=== PATIENT | male | born 1975 | race African-American/Black ===

== ENCOUNTER 2017-12-26 11:04 | Observation (INO) ==
[2017-12-26 12:13] LABS: Basophils % 0.8 % (0.0-0.8); Eosinophils # 0.1 10*3/uL (0.0-0.87); Eosinophils % 1.7 % (0.00-10.9); Hematocrit 36.3 VOL% (42.0-52.0); Hemoglobin 12.3 GM/DL (14.0-18.0); Immature Granulocytes % 0.2 %; Immature Granulocytes Absolute 0.01 #; Lymphocytes # 1.5 10*3/uL (1.4-4.0); Mean Corpuscular HGB Conc 33.9 GM/DL (32-36); Mean Corpuscular Hemoglobin 33 PG (27-34); Mean Corpuscular Volume 96.8 FL (87-102); Mean Platelet Volume 10.6 FL (9.6-12.0); Monocytes # 0.7 10*3/uL (0.11-0.8); Monocytes % 12.8 % (1.7-12.7); Neutrophils # 2.9 10*3/uL (1.4-7.4); Neutrophils % 56.5 % (38.7-73.9); Platelet Count 220 T/CUMM (130-400); Red Blood Count 3.75 MC/CUMM (3.8-5.5); Red Cell Distribution Width 17.3 % (9.3-17.3); White Blood Count 5.2 T/CUMM (4-12)
[2017-12-26 12:26] LABS: PT Patient Result 10.7 SECS
[2017-12-26 12:47] LABS: Alanine Aminotransferase 33 U/L (16-61); Albumin 4.1 G/DL (3.4-5.0); Alkaline Phosphatase 85 U/L (45-117); Aspartate Amino Transferase 38 U/L (0-37); Blood Urea Nitrogen 26 MG/DL (7-18); Calcium 9.3 MG/DL (8.5-10.1); Glucose 78 MG/DL (74-106); Osmolality,Calculated 269.4 MOS/KG (273-304); Potassium 3.7 MMOL/L (3.5-5.1); Sodium 133 MMOL/L (136-145); Total Protein 9.5 G/DL (6.4-8.3)
[2017-12-26] MEDS ORDERED: LABETALOL 20 MG/4 ML SYRINGE IV PRN (13:35)
[2017-12-26] MEDS ORDERED: ACETAMINOPHEN 325 MG TABLET PO PRN (13:35)
[2017-12-26] MEDS ORDERED: GLUCAGON 1 MG VIAL IM PRN (13:35)
[2017-12-26] MEDS ORDERED: ONDANSETRON 4 MG/2 ML VIAL IV PRN (13:35)
[2017-12-26] MEDS ORDERED: DEXTROSE 50% 25 GM/50 ML VIAL IV PRN (13:35)
[2017-12-26] MEDS: ASPIRIN EC 81 MG TABLET PO SCH (16:56)
[2017-12-26] MEDS ORDERED: ENOXAPARIN 30 MG/0.3 ML SYRINGE SUBCUT SCH (21:00)
[2017-12-26] MEDS ORDERED: ATORVASTATIN 40 MG TABLET PO SCH (21:00)
[2017-12-27 06:17] LABS: Basophils % 0.4 % (0.0-0.8); Eosinophils # 0.1 10*3/uL (0.0-0.87); Eosinophils % 1.5 % (0.00-10.9); Hematocrit 31.6 VOL% (42.0-52.0); Hemoglobin 10.6 GM/DL (14.0-18.0); Immature Granulocytes % 0.4 %; Immature Granulocytes Absolute 0.02 #; Lymphocytes # 1.5 10*3/uL (1.4-4.0); Lymphocytes % 28.4 % (21.2-54.2); Mean Corpuscular HGB Conc 33.5 GM/DL (32-36); Mean Corpuscular Hemoglobin 32 PG (27-34); Mean Corpuscular Volume 95.5 FL (87-102); Mean Platelet Volume 11.2 FL (9.6-12.0); Monocytes # 0.7 10*3/uL (0.11-0.8); Monocytes % 13.3 % (1.7-12.7); Platelet Count 194 T/CUMM (130-400); Red Blood Count 3.31 MC/CUMM (3.8-5.5); Red Cell Distribution Width 17.3 % (9.3-17.3); White Blood Count 5.3 T/CUMM (4-12)
[2017-12-27 06:52] LABS: Calcium 8.5 MG/DL (8.5-10.1); Osmolality,Calculated 278.1 MOS/KG (273-304); Potassium 3.9 MMOL/L (3.5-5.1); Risk Ratio 5.08; VLDL CHOLESTEROL 38.8 MG/DL
[2017-12-27] MEDS: ASPIRIN EC 81 MG TABLET PO SCH (08:29)
[2017-12-27] MEDS ORDERED: PANTOPRAZOLE 40 MG TABLET PO SCH ×2 (09:00→21:00)
[2017-12-27] MEDS ORDERED: NITROGLYCERIN SL 0.4 MG TABLET SL PRN (11:15)
[2017-12-27] MEDS ORDERED: CINACALCET 30 MG TABLET PO SCH (12:30)
[2017-12-27 16:10] VITALS: BP 132/72
[2017-12-27] MEDS ORDERED: ASPIRIN EC 81 MG TABLET PO SCH (19:00)
[2017-12-27] MEDS ORDERED: RANOLAZINE 500 MG TABLET PO SCH (21:00)
[2017-12-27] MEDS ORDERED: METOPROLOL SUCCINATE XL 25 MG TABLET PO SCH (21:00)
[2017-12-27] MEDS ORDERED: ATORVASTATIN 40 MG TABLET PO SCH (21:00)
[2017-12-28] MEDS ORDERED: ISOSORBIDE MONONITRATE 30 MG TABLET PO SCH (09:00)
[2017-12-28] MEDS ORDERED: CLOPIDOGREL 75 MG TABLET PO SCH (09:00)
== END 2017-12-27 16:21 | disposition home or self-care (01) ==
LOC: EDBD → EDUNIT# → N.ED 11:04 → N.EDINP 11:04 → SUATTDRO 13:15 → N.2E 15:05
PROVIDERS: ADMIT Hospitalist

== ENCOUNTER 2019-01-01 21:48 | Observation (INO) ==
[2019-01-01] MEDS ORDERED: ONDANSETRON 4 MG/2 ML VIAL IV STA (22:20)
[2019-01-01] MEDS ORDERED: ASPIRIN 325 MG TABLET PO STA (22:20)
[2019-01-01 22:33] LABS: Basophils % 0.5 % (0.0-0.8); Eosinophils # 0.1 10*3/uL (0.0-0.87); Eosinophils % 1.9 % (0.00-10.9); Hematocrit 33.6 VOL% (42.0-52.0); Hemoglobin 10.5 GM/DL (14.0-18.0); Immature Granulocytes % 0.3 %; Immature Granulocytes Absolute 0.02 #; Mean Corpuscular HGB Conc 31.3 GM/DL (32-36); Mean Corpuscular Hemoglobin 31 PG (27-34); Mean Corpuscular Volume 99.1 FL (87-102); Mean Platelet Volume 11.1 FL (9.6-12.0); Monocytes # 0.6 10*3/uL (0.11-0.8); Monocytes % 10.7 % (1.7-12.7); Neutrophils % 68.6 % (38.7-73.9); Platelet Count 153 T/CUMM (130-400); Red Blood Count 3.39 MC/CUMM (3.8-5.5); Red Cell Distribution Width 15.9 % (9.3-17.3); White Blood Count 5.8 T/CUMM (4-12)
[2019-01-01 22:46] LABS: Alanine Aminotransferase 20 U/L (16-61); Albumin 3.6 G/DL (3.4-5.0); Alkaline Phosphatase 115 U/L (45-117); Aspartate Amino Transferase 22 U/L (0-37); Blood Urea Nitrogen 23 MG/DL (7-18); Calcium 8.5 MG/DL (8.5-10.1); Glucose 89 MG/DL (74-106); INR 1.1; PT Patient Result 11.9 SECS; Partial Thromboplastin Time 32.6 SECS (0-40); Potassium 3.5 MMOL/L (3.5-5.1); Sodium 136 MMOL/L (136-145); Total Protein 8.3 G/DL (6.4-8.3)
[2019-01-01] MEDS ORDERED: hydrALAZINE 20 MG/1 ML VIAL IV STA (23:18)
[2019-01-01] MEDS ORDERED: ACETAMINOPHEN 325 MG TABLET PO PRN (23:28)
[2019-01-01] MEDS ORDERED: MORPHINE 4 MG/1 ML VIAL IV PRN (23:28)
[2019-01-01] MEDS ORDERED: ONDANSETRON 4 MG/2 ML VIAL IV PRN (23:28)
[2019-01-01] MEDS ORDERED: NICOTINE 21 MG/24 HR PATCH TRANSDERM PRN (23:28)
[2019-01-01] MEDS ORDERED: diphenhydrAMINE CAP 25 MG CAPSULE PO PRN (23:28)
[2019-01-01] MEDS ORDERED: BISACODYL 5 MG TABLET PO PRN (23:28)
[2019-01-01] MEDS ORDERED: guaiFENesin/DM ER 600-30 MG TABLET PO PRN (23:28)
[2019-01-01] MEDS ORDERED: SODIUM CHLORIDE 0.9% 1,000 ML IV SCH (23:30)
[2019-01-02 00:41] LABS: Risk Ratio 2.48; Thyroid Stimulating Hormone 1.91 uIU/ml (0.358-3.74); VLDL CHOLESTEROL 13.2 MG/DL
[2019-01-02] MEDS ORDERED: NITROGLYCERIN SL 0.4 MG TABLET SL PRN (00:45)
[2019-01-02] MEDS: CARVEDILOL 3.125 MG TABLET PO SCH ×3 (01:04→21:23)
[2019-01-02] MEDS: hydrALAZINE 25 MG TABLET PO SCH ×3 (01:12→21:22)
[2019-01-02 05:53] LABS: Basophils % 0.6 % (0.0-0.8); Eosinophils # 0.1 10*3/uL (0.0-0.87); Hematocrit 30.8 VOL% (42.0-52.0); Hemoglobin 9.5 GM/DL (14.0-18.0); Immature Granulocytes % 0.2 %; Immature Granulocytes Absolute 0.01 #; Lymphocytes % 19.7 % (21.2-54.2); Mean Corpuscular HGB Conc 30.8 GM/DL (32-36); Mean Corpuscular Hemoglobin 31 PG (27-34); Mean Platelet Volume 11.4 FL (9.6-12.0); Monocytes # 0.7 10*3/uL (0.11-0.8); Monocytes % 13.5 % (1.7-12.7); Neutrophils # 3.2 10*3/uL (1.4-7.4); Platelet Count 138 T/CUMM (130-400); Red Blood Count 3.11 MC/CUMM (3.8-5.5); Red Cell Distribution Width 15.8 % (9.3-17.3)
[2019-01-02 06:09] LABS: Albumin 3.5 G/DL (3.4-5.0); Bilirubin,Total 1.3 MG/DL (0.2-1.0); Calcium 7.6 MG/DL (8.5-10.1); Osmolality,Calculated 277.7 MOS/KG (273-304); Potassium 3.4 MMOL/L (3.5-5.1); Total Protein 7.6 G/DL (6.4-8.3)
[2019-01-02] MEDS: PANTOPRAZOLE 40 MG TABLET PO SCH (08:26)
[2019-01-02] MEDS: CALCIUM ACETATE 667 MG CAPSULE PO SCH ×3 (08:26→16:27)
[2019-01-02] MEDS: CLOPIDOGREL 75 MG TABLET PO SCH (08:26)
[2019-01-02] MEDS: ISOSORBIDE MONONITRATE 30 MG TABLET PO SCH (08:26)
[2019-01-02] MEDS: predniSONE 10 MG TABLET PO SCH (08:26)
[2019-01-02] MEDS: ASPIRIN 325 MG TABLET PO SCH (08:26)
[2019-01-02] MEDS: amLODIPine 5 MG TABLET PO SCH (08:26)
[2019-01-02] MEDS ORDERED: CALCIUM ACETATE 667 MG CAPSULE PO SCH ×2 (09:00→15:00)
[2019-01-02] MEDS ORDERED: ATORVASTATIN 40 MG TABLET PO SCH (21:00)
[2019-01-02] MEDS ORDERED: CINACALCET 30 MG TABLET PO SCH (21:00)
[2019-01-03] MEDS: CALCIUM ACETATE 667 MG CAPSULE PO SCH ×2 (09:28→13:00)
[2019-01-03] MEDS: hydrALAZINE 25 MG TABLET PO SCH (09:29)
[2019-01-03] MEDS: CARVEDILOL 3.125 MG TABLET PO SCH (09:29)
[2019-01-03] MEDS: PANTOPRAZOLE 40 MG TABLET PO SCH (13:01)
[2019-01-03] MEDS: ISOSORBIDE MONONITRATE 30 MG TABLET PO SCH (13:01)
[2019-01-03] MEDS: amLODIPine 5 MG TABLET PO SCH (13:01)
[2019-01-03] MEDS: CLOPIDOGREL 75 MG TABLET PO SCH (13:01)
[2019-01-03] MEDS: ASPIRIN 325 MG TABLET PO SCH (13:01)
[2019-01-03] MEDS: predniSONE 10 MG TABLET PO SCH (13:01)
[2019-01-03 13:05] VITALS: BP 175/90
== END 2019-01-03 14:50 | disposition home or self-care (01) ==
LOC: EDUNIT# → EDBD → N.ED 21:48 → N.EDINP 21:48 → SUATTDRO 23:28 → N.5E 01-02 00:01
PROVIDERS: ADMIT Internal Medicine; ATTEND Hospitalist

== ENCOUNTER 2019-01-10 07:06 | Inpatient (IN) ==
[2019-01-10] MEDS ORDERED: NITROGLYCERIN SL 0.4 MG TABLET SL PRN (07:25)
[2019-01-10] MEDS ORDERED: NITROGLYCERIN 2% OINT 1 INCH/GM PACK TOP STA (07:25)
[2019-01-10] MEDS ORDERED: ASPIRIN 325 MG TABLET PO STA (07:25)
[2019-01-10 08:08] LABS: Basophils % 0.3 % (0.0-0.8); Eosinophils # 0.1 10*3/uL (0.0-0.87); Hematocrit 31.3 VOL% (42.0-52.0); Hemoglobin 9.7 GM/DL (14.0-18.0); Immature Granulocytes % 0.7 %; Immature Granulocytes Absolute 0.04 #; Lymphocytes # 1.7 10*3/uL (1.4-4.0); Lymphocytes % 29.5 % (21.2-54.2); Mean Corpuscular Hemoglobin 30 PG (27-34); Mean Corpuscular Volume 97.5 FL (87-102); Mean Platelet Volume 11.6 FL (9.6-12.0); Monocytes # 0.6 10*3/uL (0.11-0.8); Monocytes % 10.1 % (1.7-12.7); Neutrophils # 3.4 10*3/uL (1.4-7.4); Neutrophils % 58.4 % (38.7-73.9); Platelet Count 132 T/CUMM (130-400); Red Blood Count 3.21 MC/CUMM (3.8-5.5); Red Cell Distribution Width 15.7 % (9.3-17.3); White Blood Count 5.8 T/CUMM (4-12)
[2019-01-10 08:37] LABS: Calcium 7.2 MG/DL (8.5-10.1); Potassium 3.5 MMOL/L (3.5-5.1)
[2019-01-10] MEDS ORDERED: ONDANSETRON 4 MG/2 ML VIAL IV PRN (11:21)
[2019-01-10] MEDS ORDERED: ACETAMINOPHEN 325 MG TABLET PO PRN (11:21)
[2019-01-10 12:27] LABS: Risk Ratio 2.91; VLDL CHOLESTEROL 23.6 MG/DL
[2019-01-10] MEDS: CALCIUM ACETATE 667 MG CAPSULE PO SCH ×2 (18:11→18:35)
[2019-01-10] MEDS: CARVEDILOL 25 MG TABLET PO SCH (20:58)
[2019-01-10] MEDS: CINACALCET 30 MG TABLET PO SCH (20:58)
[2019-01-10] MEDS: ATORVASTATIN 40 MG TABLET PO SCH (20:58)
[2019-01-10] MEDS ORDERED: hydrALAZINE 25 MG TABLET PO SCH (21:00)
[2019-01-11 04:53] LABS: Basophils % 0.4 % (0.0-0.8); Eosinophils # 0.1 10*3/uL (0.0-0.87); Eosinophils % 2.3 % (0.00-10.9); Hemoglobin 10.1 GM/DL (14.0-18.0); Immature Granulocytes % 0.9 %; Immature Granulocytes Absolute 0.05 #; Lymphocytes # 1.8 10*3/uL (1.4-4.0); Lymphocytes % 31.8 % (21.2-54.2); Mean Corpuscular HGB Conc 31.6 GM/DL (32-36); Mean Corpuscular Hemoglobin 31 PG (27-34); Mean Corpuscular Volume 97.3 FL (87-102); Mean Platelet Volume 11.9 FL (9.6-12.0); Monocytes # 0.7 10*3/uL (0.11-0.8); Monocytes % 13.1 % (1.7-12.7); Neutrophils # 2.9 10*3/uL (1.4-7.4); Neutrophils % 51.5 % (38.7-73.9); Platelet Count 142 T/CUMM (130-400); Red Blood Count 3.29 MC/CUMM (3.8-5.5); Red Cell Distribution Width 15.5 % (9.3-17.3); White Blood Count 5.6 T/CUMM (4-12)
[2019-01-11 05:34] LABS: Calcium 7.5 MG/DL (8.5-10.1); Osmolality,Calculated 281.7 MOS/KG (273-304); Potassium 3.8 MMOL/L (3.5-5.1); Thyroid Stimulating Hormone 1.44 uIU/ml (0.358-3.74)
[2019-01-11] MEDS: CALCIUM ACETATE 667 MG CAPSULE PO SCH ×3 (08:09→16:05)
[2019-01-11] MEDS: PANTOPRAZOLE 40 MG TABLET PO SCH (08:10)
[2019-01-11] MEDS: CLOPIDOGREL 75 MG TABLET PO SCH (08:10)
[2019-01-11] MEDS: ASPIRIN 325 MG TABLET PO SCH (08:10)
[2019-01-11] MEDS: amLODIPine 5 MG TABLET PO SCH (08:11)
[2019-01-11] MEDS: ISOSORBIDE MONONITRATE 30 MG TABLET PO SCH (08:11)
[2019-01-11] MEDS: CARVEDILOL 25 MG TABLET PO SCH ×2 (08:11→21:11)
[2019-01-11] MEDS: CINACALCET 30 MG TABLET PO SCH (18:00)
[2019-01-11] MEDS: ATORVASTATIN 40 MG TABLET PO SCH (21:11)
[2019-01-12 05:53] LABS: Basophils % 0.4 % (0.0-0.8); Eosinophils # 0.1 10*3/uL (0.0-0.87); Eosinophils % 2.2 % (0.00-10.9); Hematocrit 30.3 VOL% (42.0-52.0); Hemoglobin 9.6 GM/DL (14.0-18.0); Immature Granulocytes % 0.7 %; Immature Granulocytes Absolute 0.04 #; Lymphocytes # 1.9 10*3/uL (1.4-4.0); Mean Corpuscular HGB Conc 31.7 GM/DL (32-36); Mean Corpuscular Hemoglobin 31 PG (27-34); Mean Corpuscular Volume 96.8 FL (87-102); Mean Platelet Volume 11.3 FL (9.6-12.0); Monocytes # 0.7 10*3/uL (0.11-0.8); Monocytes % 12.3 % (1.7-12.7); Neutrophils # 2.6 10*3/uL (1.4-7.4); Neutrophils % 49.4 % (38.7-73.9); Platelet Count 146 T/CUMM (130-400); Red Blood Count 3.13 MC/CUMM (3.8-5.5); Red Cell Distribution Width 15.3 % (9.3-17.3); White Blood Count 5.4 T/CUMM (4-12)
[2019-01-12 06:24] LABS: Osmolality,Calculated 283.1 MOS/KG (273-304); Potassium 3.7 MMOL/L (3.5-5.1)
[2019-01-12] MEDS: CALCIUM ACETATE 667 MG CAPSULE PO SCH ×3 (08:28→16:33)
[2019-01-12] MEDS: CARVEDILOL 25 MG TABLET PO SCH ×2 (08:29→20:21)
[2019-01-12] MEDS: ISOSORBIDE MONONITRATE 30 MG TABLET PO SCH (08:29)
[2019-01-12] MEDS: PANTOPRAZOLE 40 MG TABLET PO SCH (08:29)
[2019-01-12] MEDS: amLODIPine 5 MG TABLET PO SCH (08:29)
[2019-01-12] MEDS: CLOPIDOGREL 75 MG TABLET PO SCH (08:30)
[2019-01-12] MEDS: ASPIRIN 325 MG TABLET PO SCH (08:30)
[2019-01-12] MEDS: CINACALCET 30 MG TABLET PO SCH (18:02)
[2019-01-12] MEDS: ATORVASTATIN 40 MG TABLET PO SCH (20:21)
[2019-01-13 04:53] LABS: Basophils % 0.2 % (0.0-0.8); Eosinophils # 0.2 10*3/uL (0.0-0.87); Eosinophils % 2.8 % (0.00-10.9); Hematocrit 29.1 VOL% (42.0-52.0); Hemoglobin 9.1 GM/DL (14.0-18.0); Immature Granulocytes % 0.9 %; Immature Granulocytes Absolute 0.05 #; Lymphocytes # 1.8 10*3/uL (1.4-4.0); Lymphocytes % 32.1 % (21.2-54.2); Mean Corpuscular HGB Conc 31.3 GM/DL (32-36); Mean Corpuscular Hemoglobin 30 PG (27-34); Mean Corpuscular Volume 97.3 FL (87-102); Mean Platelet Volume 11.6 FL (9.6-12.0); Monocytes # 0.6 10*3/uL (0.11-0.8); Monocytes % 11.1 % (1.7-12.7); Neutrophils % 52.9 % (38.7-73.9); Platelet Count 145 T/CUMM (130-400); Red Blood Count 2.99 MC/CUMM (3.8-5.5); Red Cell Distribution Width 15.5 % (9.3-17.3); White Blood Count 5.7 T/CUMM (4-12)
[2019-01-13 05:22] LABS: Calcium 7.1 MG/DL (8.5-10.1); Osmolality,Calculated 286.2 MOS/KG (273-304); Potassium 3.9 MMOL/L (3.5-5.1)
[2019-01-13] MEDS: CALCIUM ACETATE 667 MG CAPSULE PO SCH ×2 (07:58→12:58)
[2019-01-13] MEDS: amLODIPine 5 MG TABLET PO SCH (12:58)
[2019-01-13] MEDS: CARVEDILOL 25 MG TABLET PO SCH (12:58)
[2019-01-13] MEDS: CLOPIDOGREL 75 MG TABLET PO SCH (12:59)
[2019-01-13] MEDS: ISOSORBIDE MONONITRATE 30 MG TABLET PO SCH (12:59)
[2019-01-13] MEDS: PANTOPRAZOLE 40 MG TABLET PO SCH (12:59)
[2019-01-13] MEDS: ASPIRIN 325 MG TABLET PO SCH (13:03)
[2019-01-13 13:39] VITALS: BP 186/70
== END 2019-01-13 13:50 | disposition home or self-care (01) | DRG 391 ==
LOC: EDUNIT# → N.ED 07:06 → N.EDINP 11:16 → N.2E 12:34
PROVIDERS: ADMIT Hospitalist; ATTEND Hospitalist

== ENCOUNTER 2019-01-18 12:29 | Observation (INO) ==
[2019-01-18 13:32] LABS: Basophils % 0.4 % (0.0-0.8); Eosinophils # 0.1 10*3/uL (0.0-0.87); Eosinophils % 2.5 % (0.00-10.9); Hematocrit 29.2 VOL% (42.0-52.0); Hemoglobin 9.2 GM/DL (14.0-18.0); Immature Granulocytes % 0.6 %; Immature Granulocytes Absolute 0.03 #; Lymphocytes # 1.1 10*3/uL (1.4-4.0); Lymphocytes % 22.3 % (21.2-54.2); Mean Corpuscular HGB Conc 31.5 GM/DL (32-36); Mean Corpuscular Hemoglobin 31 PG (27-34); Mean Corpuscular Volume 99.3 FL (87-102); Mean Platelet Volume 10.9 FL (9.6-12.0); Monocytes # 0.6 10*3/uL (0.11-0.8); Monocytes % 12.9 % (1.7-12.7); Neutrophils % 61.3 % (38.7-73.9); Platelet Count 148 T/CUMM (130-400); Red Blood Count 2.94 MC/CUMM (3.8-5.5); Red Cell Distribution Width 15.2 % (9.3-17.3); White Blood Count 4.9 T/CUMM (4-12)
[2019-01-18 13:41] LABS: INR 1.1; PT Patient Result 11.5 SECS; Partial Thromboplastin Time 32.1 SECS (0-40)
[2019-01-18 13:57] LABS: Albumin 3.4 G/DL (3.4-5.0); Bilirubin,Total 0.9 MG/DL (0.2-1.0); Calcium 7.6 MG/DL (8.5-10.1); Osmolality,Calculated 277.7 MOS/KG (273-304); Potassium 3.9 MMOL/L (3.5-5.1); Total Protein 7.7 G/DL (6.4-8.3)
[2019-01-18] MEDS ORDERED: ACETAMINOPHEN 325 MG TABLET PO PRN (15:03)
[2019-01-18] MEDS ORDERED: ONDANSETRON 4 MG/2 ML VIAL IV PRN (15:03)
[2019-01-18] MEDS: CALCIUM ACETATE 667 MG CAPSULE PO SCH (17:07)
[2019-01-18] MEDS: NITROGLYCERIN 2% OINT 1 INCH/GM PACK TOP SCH (17:07)
[2019-01-18] MEDS: ENOXAPARIN 120 MG/0.8 ML SYRINGE SUBCUT SCH (17:07)
[2019-01-18] MEDS ORDERED: CINACALCET 30 MG TABLET PO SCH (19:00)
[2019-01-18] MEDS: PANTOPRAZOLE 40 MG TABLET PO SCH (22:00)
[2019-01-18] MEDS: ATORVASTATIN 40 MG TABLET PO SCH (22:00)
[2019-01-18] MEDS: CINACALCET 30 MG TABLET PO SCH (22:00)
[2019-01-18] MEDS: CARVEDILOL 25 MG TABLET PO SCH (22:00)
[2019-01-19 06:02] LABS: Basophils % 0.6 % (0.0-0.8); Eosinophils # 0.1 10*3/uL (0.0-0.87); Eosinophils % 3.1 % (0.00-10.9); Hemoglobin 8.6 GM/DL (14.0-18.0); Immature Granulocytes % 0.6 %; Immature Granulocytes Absolute 0.02 #; Lymphocytes # 1.1 10*3/uL (1.4-4.0); Lymphocytes % 29.3 % (21.2-54.2); Mean Corpuscular HGB Conc 29.7 GM/DL (32-36); Mean Corpuscular Hemoglobin 31 PG (27-34); Mean Corpuscular Volume 102.8 FL (87-102); Mean Platelet Volume 11.8 FL (9.6-12.0); Monocytes # 0.5 10*3/uL (0.11-0.8); Monocytes % 13.4 % (1.7-12.7); Neutrophils # 1.9 10*3/uL (1.4-7.4); Platelet Count 111 T/CUMM (130-400); Red Blood Count 2.82 MC/CUMM (3.8-5.5); Red Cell Distribution Width 15.5 % (9.3-17.3); White Blood Count 3.6 T/CUMM (4-12)
[2019-01-19 06:18] LABS: Calcium 7.7 MG/DL (8.5-10.1); Osmolality,Calculated 279.7 MOS/KG (273-304); Risk Ratio 2.51; VLDL CHOLESTEROL 13.8 MG/DL
[2019-01-19 06:29] LABS: Burr Cells Few; Ovalocytes 1+; Platelet Estimate Normal
[2019-01-19] MEDS: NITROGLYCERIN 2% OINT 1 INCH/GM PACK TOP SCH ×4 (07:27→17:38)
[2019-01-19] MEDS: CALCIUM ACETATE 667 MG CAPSULE PO SCH ×3 (08:57→17:40)
[2019-01-19] MEDS: PANTOPRAZOLE 40 MG TABLET PO SCH ×2 (08:58→21:44)
[2019-01-19] MEDS: CARVEDILOL 25 MG TABLET PO SCH ×2 (08:58→21:44)
[2019-01-19] MEDS: ASPIRIN 325 MG TABLET PO SCH (08:58)
[2019-01-19] MEDS: amLODIPine 10 MG TABLET PO SCH (08:59)
[2019-01-19] MEDS: CLOPIDOGREL 75 MG TABLET PO SCH (08:59)
[2019-01-19] MEDS ORDERED: amLODIPine 5 MG TABLET PO SCH (09:00)
[2019-01-19] MEDS: CARBAMIDE PEROXIDE 6.5% OTIC SOLN 15 ML BOTTLE BOTH EARS SCH ×2 (12:09→21:44)
[2019-01-19] MEDS: ENOXAPARIN 120 MG/0.8 ML SYRINGE SUBCUT SCH (15:10)
[2019-01-19] MEDS: CINACALCET 30 MG TABLET PO SCH (21:44)
[2019-01-19] MEDS: ATORVASTATIN 40 MG TABLET PO SCH (21:44)
[2019-01-20] MEDS: NITROGLYCERIN 2% OINT 1 INCH/GM PACK TOP SCH ×2 (07:10→13:27)
[2019-01-20] MEDS ORDERED: DIAZEPAM 5 MG TABLET PO ONE (08:39)
[2019-01-20] MEDS ORDERED: diphenhydrAMINE CAP 25 MG CAPSULE PO ONE (08:39)
[2019-01-20] MEDS ORDERED: SODIUM CHLORIDE 0.45% 1,000 ML IV SCH (09:00)
[2019-01-20] MEDS: CALCIUM ACETATE 667 MG CAPSULE PO SCH ×3 (09:12→17:42)
[2019-01-20] MEDS: CARVEDILOL 25 MG TABLET PO SCH ×2 (09:13→23:04)
[2019-01-20] MEDS: amLODIPine 10 MG TABLET PO SCH (09:13)
[2019-01-20] MEDS: ASPIRIN 325 MG TABLET PO SCH (09:14)
[2019-01-20] MEDS: CLOPIDOGREL 75 MG TABLET PO SCH (09:14)
[2019-01-20] MEDS: PANTOPRAZOLE 40 MG TABLET PO SCH ×2 (09:15→23:05)
[2019-01-20] MEDS: CARBAMIDE PEROXIDE 6.5% OTIC SOLN 15 ML BOTTLE BOTH EARS SCH ×2 (09:17→23:05)
[2019-01-20] MEDS ORDERED: HEPARIN/NACL 0.9% 2 UNITS/ML 0 ML IV ONE (11:21)
[2019-01-20] MEDS ORDERED: LIDOCAINE 1% 20 ML VIAL ONE (11:21)
[2019-01-20] MEDS ORDERED: HYDROmorphone 2 MG/1 ML VIAL ONE (11:26)
[2019-01-20] MEDS ORDERED: MIDAZOLAM 2 MG/2 ML VIAL ONE (11:26)
[2019-01-20] MEDS ORDERED: NITROGLYCERIN SL 0.4 MG TABLET SL PRN (12:20)
[2019-01-20] MEDS ORDERED: ZALEPLON 5 MG CAPSULE PO PRN (12:20)
[2019-01-20] MEDS: CINACALCET 30 MG TABLET PO SCH (23:03)
[2019-01-20] MEDS: ATORVASTATIN 40 MG TABLET PO SCH (23:04)
[2019-01-21 06:07] LABS: Basophils % 0.4 % (0.0-0.8); Eosinophils # 0.1 10*3/uL (0.0-0.87); Eosinophils % 1.5 % (0.00-10.9); Hematocrit 26.4 VOL% (42.0-52.0); Hemoglobin 8.4 GM/DL (14.0-18.0); Immature Granulocytes % 0.5 %; Immature Granulocytes Absolute 0.03 #; Lymphocytes # 0.9 10*3/uL (1.4-4.0); Lymphocytes % 15.8 % (21.2-54.2); Mean Corpuscular HGB Conc 31.8 GM/DL (32-36); Mean Corpuscular Hemoglobin 31 PG (27-34); Mean Corpuscular Volume 97.4 FL (87-102); Mean Platelet Volume 10.8 FL (9.6-12.0); Monocytes # 0.5 10*3/uL (0.11-0.8); Monocytes % 8.2 % (1.7-12.7); Neutrophils # 4.1 10*3/uL (1.4-7.4); Neutrophils % 73.6 % (38.7-73.9); Platelet Count 146 T/CUMM (130-400); Red Blood Count 2.71 MC/CUMM (3.8-5.5); Red Cell Distribution Width 15.1 % (9.3-17.3); White Blood Count 5.5 T/CUMM (4-12)
[2019-01-21 06:12] LABS: Calcium 7.6 MG/DL (8.5-10.1); Osmolality,Calculated 276.4 MOS/KG (273-304); Potassium 4.5 MMOL/L (3.5-5.1)
[2019-01-21] MEDS: amLODIPine 10 MG TABLET PO SCH (09:11)
[2019-01-21] MEDS: CALCIUM ACETATE 667 MG CAPSULE PO SCH ×3 (09:11→16:48)
[2019-01-21] MEDS: PANTOPRAZOLE 40 MG TABLET PO SCH ×2 (09:12→22:12)
[2019-01-21] MEDS: ASPIRIN 325 MG TABLET PO SCH (09:13)
[2019-01-21] MEDS: ISOSORBIDE MONONITRATE 60 MG TABLET PO SCH (09:13)
[2019-01-21] MEDS: CARVEDILOL 25 MG TABLET PO SCH ×2 (09:13→22:12)
[2019-01-21] MEDS: CLOPIDOGREL 75 MG TABLET PO SCH (09:14)
[2019-01-21] MEDS: CARBAMIDE PEROXIDE 6.5% OTIC SOLN 15 ML BOTTLE BOTH EARS SCH ×2 (10:00→22:13)
[2019-01-21] MEDS ORDERED: BENZONATATE 100 MG CAPSULE PO PRN (13:30)
[2019-01-21] MEDS ORDERED: ALBUTEROL/IPRATROPIUM 3 ML NEB RESP TX ONE (13:30)
[2019-01-21] MEDS: LORATADINE 10 MG TABLET PO SCH (16:10)
[2019-01-21] MEDS: FLUTICASONE 50 MCG NASAL SPRAY 16 GM BOTTLE BOTH NARES SCH ×2 (16:11→22:13)
[2019-01-21] MEDS: CINACALCET 30 MG TABLET PO SCH (22:11)
[2019-01-21] MEDS: ATORVASTATIN 40 MG TABLET PO SCH (22:12)
[2019-01-22 06:09] LABS: Basophils % 0.7 % (0.0-0.8); Eosinophils # 0.1 10*3/uL (0.0-0.87); Eosinophils % 2.4 % (0.00-10.9); Hematocrit 25.6 VOL% (42.0-52.0); Immature Granulocytes % 0.2 %; Immature Granulocytes Absolute 0.01 #; Lymphocytes % 21.3 % (21.2-54.2); Mean Corpuscular HGB Conc 31.3 GM/DL (32-36); Mean Corpuscular Hemoglobin 31 PG (27-34); Mean Corpuscular Volume 98.1 FL (87-102); Mean Platelet Volume 10.8 FL (9.6-12.0); Monocytes # 0.6 10*3/uL (0.11-0.8); Monocytes % 13.9 % (1.7-12.7); Neutrophils # 2.8 10*3/uL (1.4-7.4); Neutrophils % 61.5 % (38.7-73.9); Platelet Count 128 T/CUMM (130-400); Red Blood Count 2.61 MC/CUMM (3.8-5.5); Red Cell Distribution Width 15.2 % (9.3-17.3); White Blood Count 4.6 T/CUMM (4-12)
[2019-01-22 06:37] LABS: Calcium 7.6 MG/DL (8.5-10.1); Osmolality,Calculated 274.1 MOS/KG (273-304); Potassium 4.2 MMOL/L (3.5-5.1)
[2019-01-22 08:27] VITALS: BP 146/84
[2019-01-22] MEDS: CLOPIDOGREL 75 MG TABLET PO SCH (09:42)
[2019-01-22] MEDS: CALCIUM ACETATE 667 MG CAPSULE PO SCH ×2 (09:43→12:52)
[2019-01-22] MEDS: ISOSORBIDE MONONITRATE 60 MG TABLET PO SCH (09:43)
[2019-01-22] MEDS: CARVEDILOL 25 MG TABLET PO SCH (09:44)
[2019-01-22] MEDS: amLODIPine 10 MG TABLET PO SCH (09:44)
[2019-01-22] MEDS: FLUTICASONE 50 MCG NASAL SPRAY 16 GM BOTTLE BOTH NARES SCH (09:44)
[2019-01-22] MEDS: LORATADINE 10 MG TABLET PO SCH (09:44)
[2019-01-22] MEDS: CARBAMIDE PEROXIDE 6.5% OTIC SOLN 15 ML BOTTLE BOTH EARS SCH (09:44)
[2019-01-22] MEDS: PANTOPRAZOLE 40 MG TABLET PO SCH (09:44)
[2019-01-22] MEDS: ASPIRIN 325 MG TABLET PO SCH (09:56)
[2019-01-23] MEDS ORDERED: ASPIRIN CHEW 81 MG TABLET PO SCH (09:00)
== END 2019-01-22 15:19 | disposition home or self-care (01) ==
LOC: EDUNIT# → N.ED 12:29 → N.EDINP 12:29 → SUATTDRO 15:00 → N.EDINP 16:13 → N.TELES 16:37
PROVIDERS: ADMIT Hospitalist; ATTEND Internal Medicine

== ENCOUNTER 2019-02-20 09:30 | Inpatient (IN) ==
[2019-02-20] MEDS ORDERED: diphenhydrAMINE CAP 25 MG CAPSULE PO PRN (09:39)
[2019-02-20] MEDS ORDERED: guaiFENesin/DM ER 600-30 MG TABLET PO PRN (09:39)
[2019-02-20] MEDS ORDERED: MORPHINE 4 MG/1 ML VIAL IV PRN (09:39)
[2019-02-20] MEDS ORDERED: ZALEPLON 5 MG CAPSULE PO PRN (09:39)
[2019-02-20] MEDS ORDERED: MAGNESIUM SULF RIDER 2 GM in PREMIX 1 EACH IV PRN (09:39)
[2019-02-20] MEDS ORDERED: BISACODYL 5 MG TABLET PO PRN (09:39)
[2019-02-20] MEDS ORDERED: ACETAMINOPHEN 325 MG TABLET PO PRN (09:39)
[2019-02-20] MEDS ORDERED: DOCUSATE SODIUM 100 MG CAPSULE PO PRN (09:39)
[2019-02-20] MEDS ORDERED: MAGNESIUM SULF RIDER 4 GM in PREMIX 1 EACH IV PRN (09:39)
[2019-02-20] MEDS ORDERED: DIAZEPAM 5 MG TABLET PO ONE (09:44)
[2019-02-20] MEDS ORDERED: diphenhydrAMINE CAP 25 MG CAPSULE PO ONE (09:44)
[2019-02-20] MEDS ORDERED: ASPIRIN 325 MG TABLET PO ONE (09:44)
[2019-02-20] MEDS ORDERED: POTASSIUM CHLORIDE RIDER 10 MEQ in PREMIX 1 EACH IV PRN (09:44)
[2019-02-20] MEDS ORDERED: NITROGLYCERIN SL 0.4 MG TABLET SL PRN (09:45)
[2019-02-20] MEDS ORDERED: ALUMINUM/MAGNES/SIMETH MAX STR 30 ML UDCUP PO PRN (09:45)
[2019-02-20] MEDS ORDERED: SODIUM CHLORIDE 0.9% 1,000 ML IV SCH (10:00)
[2019-02-20] MEDS ORDERED: LIDOCAINE 1% 20 ML VIAL ONE (10:45)
[2019-02-20] MEDS ORDERED: PANTOPRAZOLE 40 MG TABLET PO SCH (11:00)
[2019-02-20] MEDS: ENOXAPARIN 100 MG/ML SYRINGE SUBCUT SCH ×2 (11:13→21:25)
[2019-02-20 12:20] LABS: Basophils % 0.8 % (0.0-0.8); Eosinophils # 0.1 10*3/uL (0.0-0.87); Eosinophils % 2.9 % (0.00-10.9); Hematocrit 28.6 VOL% (42.0-52.0); Hemoglobin 8.7 GM/DL (14.0-18.0); Immature Granulocytes % 0.5 %; Immature Granulocytes Absolute 0.02 #; Lymphocytes # 1.1 10*3/uL (1.4-4.0); Lymphocytes % 28.5 % (21.2-54.2); Mean Corpuscular HGB Conc 30.4 GM/DL (32-36); Mean Corpuscular Volume 99.7 FL (87-102); Mean Platelet Volume 10.8 FL (9.6-12.0); Neutrophils % 57.3 % (38.7-73.9); Platelet Count 134 T/CUMM (130-400); Red Blood Count 2.87 MC/CUMM (3.8-5.5); Red Cell Distribution Width 16.9 % (9.3-17.3); White Blood Count 3.8 T/CUMM (4-12)
[2019-02-20 12:26] LABS: INR 1.1; PT Patient Result 12.2 SECS
[2019-02-20 12:40] LABS: Albumin 3.6 G/DL (3.4-5.0); Bilirubin,Total 1.1 MG/DL (0.2-1.0); Calcium 7.5 MG/DL (8.5-10.1); Osmolality,Calculated 281.7 MOS/KG (273-304); Total Protein 7.2 G/DL (6.4-8.3)
[2019-02-20 12:42] LABS: Troponin I 0.039 NG/ML (0.00-0.045)
[2019-02-20] MEDS ORDERED: MIDAZOLAM 2 MG/2 ML VIAL ONE (12:45)
[2019-02-20] MEDS ORDERED: HYDROmorphone 2 MG/1 ML VIAL ONE (12:45)
[2019-02-20] MEDS ORDERED: CLOPIDOGREL 300 MG TABLET ONE (13:37)
[2019-02-20] MEDS ORDERED: hydrALAZINE 20 MG/1 ML VIAL IV PRN (15:14)
[2019-02-20 16:54] LABS: Troponin I 0.044 NG/ML (0.00-0.045)
[2019-02-20] MEDS: CALCIUM ACETATE 667 MG CAPSULE PO SCH (17:19)
[2019-02-20] MEDS ORDERED: ALBUTEROL/IPRATROPIUM 3 ML NEB RESP TX PRN (17:37)
[2019-02-20] MEDS: ONDANSETRON 4 MG/2 ML VIAL IV PRN (18:10)
[2019-02-20] MEDS: CINACALCET 30 MG TABLET PO SCH (18:45)
[2019-02-20] MEDS: hydrALAZINE 25 MG TABLET PO SCH (21:24)
[2019-02-20] MEDS: ATORVASTATIN 40 MG TABLET PO SCH (21:24)
[2019-02-20] MEDS: RANOLAZINE 500 MG TABLET PO SCH (21:24)
[2019-02-20] MEDS: CARVEDILOL 12.5 MG TABLET PO SCH (21:24)
[2019-02-20] MEDS: PANTOPRAZOLE 40 MG TABLET PO SCH (21:26)
[2019-02-21] MEDS: ONDANSETRON 4 MG/2 ML VIAL IV PRN ×2 (04:35→17:00)
[2019-02-21 05:42] LABS: Basophils % 0.4 % (0.0-0.8); Eosinophils # 0.1 10*3/uL (0.0-0.87); Eosinophils % 1.3 % (0.00-10.9); Hematocrit 31.7 VOL% (42.0-52.0); Hemoglobin 9.8 GM/DL (14.0-18.0); Immature Granulocytes % 0.4 %; Immature Granulocytes Absolute 0.03 #; Lymphocytes % 13.7 % (21.2-54.2); Mean Corpuscular HGB Conc 30.9 GM/DL (32-36); Mean Corpuscular Volume 98.4 FL (87-102); Mean Platelet Volume 11.6 FL (9.6-12.0); Monocytes % 8.8 % (1.7-12.7); Neutrophils % 75.4 % (38.7-73.9); Platelet Count 169 T/CUMM (130-400); Red Blood Count 3.22 MC/CUMM (3.8-5.5); Red Cell Distribution Width 16.9 % (9.3-17.3); White Blood Count 7.5 T/CUMM (4-12)
[2019-02-21 06:12] LABS: Calcium 7.6 MG/DL (8.5-10.1); Risk Ratio 2.73; VLDL CHOLESTEROL 17.8 MG/DL
[2019-02-21 06:38] VITALS: BP 157/97
[2019-02-21] MEDS ORDERED: ISOSORBIDE MONONITRATE 60 MG TABLET PO SCH (09:00)
[2019-02-21] MEDS: CALCIUM ACETATE 667 MG CAPSULE PO SCH ×3 (11:04→18:54)
[2019-02-21] MEDS: CLOPIDOGREL 75 MG TABLET PO SCH (11:05)
[2019-02-21] MEDS: PANTOPRAZOLE 40 MG TABLET PO SCH (11:05)
[2019-02-21] MEDS: hydrALAZINE 25 MG TABLET PO SCH ×3 (11:05→20:27)
[2019-02-21] MEDS: FLUoxetine 20 MG CAPSULE PO SCH (11:05)
[2019-02-21] MEDS: RANOLAZINE 500 MG TABLET PO SCH ×2 (11:05→20:29)
[2019-02-21] MEDS: amLODIPine 5 MG TABLET PO SCH (11:06)
[2019-02-21] MEDS: CARVEDILOL 12.5 MG TABLET PO SCH ×2 (11:06→20:25)
[2019-02-21] MEDS: ASPIRIN EC 81 MG TABLET PO SCH (11:07)
[2019-02-21 12:55] LABS: Hemoglobin 9.4 GM/DL (14.0-18.0)
[2019-02-21] MEDS: ISOSORBIDE DINITRATE 20 MG TABLET PO SCH ×2 (18:54→20:25)
[2019-02-21] MEDS: SPIRONOLACTONE 25 MG TABLET PO SCH (20:18)
[2019-02-21] MEDS: CINACALCET 30 MG TABLET PO SCH (20:24)
[2019-02-21] MEDS: ATORVASTATIN 40 MG TABLET PO SCH (20:24)
[2019-02-21] MEDS: SACUBITRIL/VALSARTAN 49-51 MG TABLET PO SCH (20:24)
[2019-02-22 05:54] LABS: Basophils % 0.8 % (0.0-0.8); Eosinophils % 0.4 % (0.00-10.9); Hemoglobin 8.7 GM/DL (14.0-18.0); Immature Granulocytes % 0.4 %; Immature Granulocytes Absolute 0.02 #; Lymphocytes % 18.8 % (21.2-54.2); Mean Corpuscular HGB Conc 31.1 GM/DL (32-36); Mean Corpuscular Volume 98.2 FL (87-102); Mean Platelet Volume 11.6 FL (9.6-12.0); Monocytes % 13.7 % (1.7-12.7); Neutrophils % 65.9 % (38.7-73.9); Platelet Count 140 T/CUMM (130-400); Red Blood Count 2.85 MC/CUMM (3.8-5.5); Red Cell Distribution Width 16.7 % (9.3-17.3); White Blood Count 5.3 T/CUMM (4-12)
[2019-02-22 06:16] LABS: Calcium 7.3 MG/DL (8.5-10.1); Osmolality,Calculated 286.7 MOS/KG (273-304)
[2019-02-22] MEDS ORDERED: ONDANSETRON ODT 4 MG TABLET PO PRN (08:18)
[2019-02-22] MEDS: CALCIUM ACETATE 667 MG CAPSULE PO SCH ×3 (09:56→17:08)
[2019-02-22] MEDS: RANOLAZINE 500 MG TABLET PO SCH ×2 (09:57→20:43)
[2019-02-22] MEDS: SACUBITRIL/VALSARTAN 49-51 MG TABLET PO SCH ×2 (09:57→20:43)
[2019-02-22] MEDS: ISOSORBIDE DINITRATE 20 MG TABLET PO SCH ×3 (09:57→20:43)
[2019-02-22] MEDS: amLODIPine 5 MG TABLET PO SCH (09:57)
[2019-02-22] MEDS: SPIRONOLACTONE 25 MG TABLET PO SCH (09:57)
[2019-02-22] MEDS: FLUoxetine 20 MG CAPSULE PO SCH (09:58)
[2019-02-22] MEDS: ASPIRIN EC 81 MG TABLET PO SCH (09:58)
[2019-02-22] MEDS: CARVEDILOL 12.5 MG TABLET PO SCH ×2 (09:58→20:44)
[2019-02-22] MEDS: hydrALAZINE 25 MG TABLET PO SCH ×3 (09:58→20:49)
[2019-02-22] MEDS: CLOPIDOGREL 75 MG TABLET PO SCH (09:58)
[2019-02-22] MEDS: CINACALCET 30 MG TABLET PO SCH (18:00)
[2019-02-22] MEDS: ATORVASTATIN 40 MG TABLET PO SCH (20:44)
[2019-02-23 04:11] LABS: Basophils % 0.2 % (0.0-0.8); Eosinophils # 0.2 10*3/uL (0.0-0.87); Eosinophils % 4.4 % (0.00-10.9); Hematocrit 24.9 VOL% (42.0-52.0); Hemoglobin 7.7 GM/DL (14.0-18.0); Immature Granulocytes % 0.2 %; Immature Granulocytes Absolute 0.01 #; Lymphocytes % 24.8 % (21.2-54.2); Mean Corpuscular HGB Conc 30.9 GM/DL (32-36); Mean Corpuscular Volume 96.9 FL (87-102); Mean Platelet Volume 11.6 FL (9.6-12.0); Monocytes % 14.1 % (1.7-12.7); Neutrophils % 56.3 % (38.7-73.9); Platelet Count 140 T/CUMM (130-400); Red Blood Count 2.57 MC/CUMM (3.8-5.5); Red Cell Distribution Width 16.6 % (9.3-17.3); White Blood Count 4.1 T/CUMM (4-12)
[2019-02-23 04:27] LABS: Calcium 6.8 MG/DL (8.5-10.1); Osmolality,Calculated 285.1 MOS/KG (273-304)
[2019-02-23] MEDS: CALCIUM ACETATE 667 MG CAPSULE PO SCH ×3 (11:02→17:15)
[2019-02-23] MEDS: SACUBITRIL/VALSARTAN 49-51 MG TABLET PO SCH ×2 (11:03→20:49)
[2019-02-23] MEDS: CARVEDILOL 12.5 MG TABLET PO SCH ×2 (11:04→20:50)
[2019-02-23] MEDS: hydrALAZINE 25 MG TABLET PO SCH ×3 (11:04→20:50)
[2019-02-23] MEDS: ISOSORBIDE DINITRATE 20 MG TABLET PO SCH ×3 (11:04→20:50)
[2019-02-23] MEDS: amLODIPine 5 MG TABLET PO SCH (11:04)
[2019-02-23] MEDS: CLOPIDOGREL 75 MG TABLET PO SCH (11:05)
[2019-02-23] MEDS: FLUoxetine 20 MG CAPSULE PO SCH (11:05)
[2019-02-23] MEDS: RANOLAZINE 500 MG TABLET PO SCH ×2 (11:05→20:49)
[2019-02-23] MEDS: SPIRONOLACTONE 25 MG TABLET PO SCH (11:06)
[2019-02-23] MEDS: ASPIRIN EC 81 MG TABLET PO SCH (11:06)
[2019-02-23] MEDS: CINACALCET 30 MG TABLET PO SCH (18:30)
[2019-02-23] MEDS: ATORVASTATIN 40 MG TABLET PO SCH (20:49)
[2019-02-24 04:36] LABS: Basophils % 0.6 % (0.0-0.8); Eosinophils # 0.2 10*3/uL (0.0-0.87); Eosinophils % 4.6 % (0.00-10.9); Hematocrit 24.5 VOL% (42.0-52.0); Hemoglobin 7.4 GM/DL (14.0-18.0); Immature Granulocytes % 0.6 %; Immature Granulocytes Absolute 0.03 #; Lymphocytes # 1.4 10*3/uL (1.4-4.0); Lymphocytes % 28.7 % (21.2-54.2); Mean Corpuscular HGB Conc 30.2 GM/DL (32-36); Mean Platelet Volume 11.1 FL (9.6-12.0); Monocytes % 17.4 % (1.7-12.7); Neutrophils % 48.1 % (38.7-73.9); Platelet Count 147 T/CUMM (130-400); Red Cell Distribution Width 16.4 % (9.3-17.3)
[2019-02-24 04:46] LABS: Calcium 6.9 MG/DL (8.5-10.1)
[2019-02-24 07:27] LABS: Band Neutrophils 1 % (0-10); Eosinophils 7 % (0-10); Lymphocytes 27 % (20-55); Platelet Estimate Adequate; Segmented Neutrophils 53 % (50-85); Total Cells Counted 100
[2019-02-24 07:28] LABS: Anisocytosis 2+; Poikilocytosis Slight; Polychromasia Slight
[2019-02-24] MEDS: FLUoxetine 20 MG CAPSULE PO SCH (09:20)
[2019-02-24] MEDS: SACUBITRIL/VALSARTAN 49-51 MG TABLET PO SCH (09:20)
[2019-02-24] MEDS: CALCIUM ACETATE 667 MG CAPSULE PO SCH ×2 (09:20→15:03)
[2019-02-24] MEDS: RANOLAZINE 500 MG TABLET PO SCH (09:20)
[2019-02-24] MEDS: CLOPIDOGREL 75 MG TABLET PO SCH (09:20)
[2019-02-24] MEDS: CARVEDILOL 12.5 MG TABLET PO SCH (09:20)
[2019-02-24] MEDS: ASPIRIN EC 81 MG TABLET PO SCH (09:20)
[2019-02-24] MEDS: hydrALAZINE 25 MG TABLET PO SCH ×2 (09:24→15:10)
[2019-02-24] MEDS: ISOSORBIDE DINITRATE 20 MG TABLET PO SCH ×2 (09:24→15:10)
[2019-02-24] MEDS: SPIRONOLACTONE 25 MG TABLET PO SCH (13:15)
[2019-02-24] MEDS: amLODIPine 5 MG TABLET PO SCH (13:15)
== END 2019-02-24 16:07 | disposition home or self-care (01) ==
LOC: INTOOBSV 09:39 → N.CC 10:20
PROVIDERS: ADMIT Internal Medicine Cardiovascular Disease; ATTEND Internal Medicine Cardiovascular Disease

== ENCOUNTER 2019-03-10 05:47 | Observation (INO) ==
[2019-03-10] MEDS ORDERED: ASPIRIN 325 MG TABLET PO STA ×2 (06:13→06:24)
[2019-03-10 06:42] LABS: Basophils % 0.5 % (0.0-0.8); Eosinophils # 0.1 10*3/uL (0.0-0.87); Eosinophils % 1.8 % (0.00-10.9); Hematocrit 25.2 VOL% (42.0-52.0); Hemoglobin 7.6 GM/DL (14.0-18.0); Immature Granulocytes % 0.8 %; Immature Granulocytes Absolute 0.03 #; Lymphocytes # 0.9 10*3/uL (1.4-4.0); Lymphocytes % 22.8 % (21.2-54.2); Mean Corpuscular HGB Conc 30.2 GM/DL (32-36); Mean Corpuscular Volume 101.2 FL (87-102); Mean Platelet Volume 10.4 FL (9.6-12.0); Monocytes % 11.5 % (1.7-12.7); Neutrophils % 62.6 % (38.7-73.9); Platelet Count 161 T/CUMM (130-400); Red Blood Count 2.49 MC/CUMM (3.8-5.5); Red Cell Distribution Width 16.9 % (9.3-17.3); White Blood Count 3.8 T/CUMM (4-12)
[2019-03-10 07:08] LABS: Albumin 3.7 G/DL (3.4-5.0); Calcium 7.8 MG/DL (8.5-10.1); Osmolality,Calculated 288.5 MOS/KG (273-304)
[2019-03-10] MEDS ORDERED: ACETAMINOPHEN 325 MG TABLET PO PRN (08:02)
[2019-03-10] MEDS ORDERED: ONDANSETRON 4 MG/2 ML VIAL IV PRN (08:02)
[2019-03-10] MEDS: PANTOPRAZOLE 40 MG TABLET PO SCH ×3 (10:17→21:23)
[2019-03-10] MEDS ORDERED: NAPROXEN 250 MG TABLET PO PRN (10:55)
[2019-03-10] MEDS ORDERED: NITROGLYCERIN SL 0.4 MG TABLET SL PRN (10:55)
[2019-03-10] MEDS: ASPIRIN EC 81 MG TABLET PO SCH (11:26)
[2019-03-10] MEDS: SACUBITRIL/VALSARTAN 49-51 MG TABLET PO SCH ×2 (11:26→21:22)
[2019-03-10] MEDS: amLODIPine 5 MG TABLET PO SCH (11:27)
[2019-03-10] MEDS: SPIRONOLACTONE 25 MG TABLET PO SCH (11:27)
[2019-03-10] MEDS: FLUoxetine 20 MG CAPSULE PO SCH (11:27)
[2019-03-10] MEDS: ISOSORBIDE MONONITRATE 30 MG TABLET PO SCH (11:27)
[2019-03-10] MEDS: CARVEDILOL 12.5 MG TABLET PO SCH ×2 (11:28→21:23)
[2019-03-10] MEDS: RANOLAZINE 500 MG TABLET PO SCH ×2 (11:28→21:23)
[2019-03-10] MEDS: CLOPIDOGREL 75 MG TABLET PO SCH (11:29)
[2019-03-10] MEDS: CALCIUM ACETATE 667 MG CAPSULE PO SCH ×2 (12:20→17:43)
[2019-03-10] MEDS: hydrALAZINE 25 MG TABLET PO SCH ×2 (16:24→21:26)
[2019-03-10] MEDS ORDERED: ATORVASTATIN 40 MG TABLET PO SCH (21:00)
[2019-03-10] MEDS ORDERED: CINACALCET 30 MG TABLET PO SCH (21:00)
[2019-03-11 05:31] LABS: Basophils % 0.5 % (0.0-0.8); Eosinophils # 0.1 10*3/uL (0.0-0.87); Eosinophils % 3.2 % (0.00-10.9); Hematocrit 26.7 VOL% (42.0-52.0); Hemoglobin 8.3 GM/DL (14.0-18.0); Immature Granulocytes % 0.5 %; Immature Granulocytes Absolute 0.02 #; Lymphocytes # 1.1 10*3/uL (1.4-4.0); Lymphocytes % 26.3 % (21.2-54.2); Mean Corpuscular HGB Conc 31.1 GM/DL (32-36); Mean Platelet Volume 11.1 FL (9.6-12.0); Monocytes % 13.1 % (1.7-12.7); Neutrophils % 56.4 % (38.7-73.9); Platelet Count 182 T/CUMM (130-400); Red Blood Count 2.67 MC/CUMM (3.8-5.5); Red Cell Distribution Width 17.2 % (9.3-17.3); White Blood Count 4.1 T/CUMM (4-12)
[2019-03-11 05:55] LABS: Calcium 8.2 MG/DL (8.5-10.1); Osmolality,Calculated 276.8 MOS/KG (273-304)
[2019-03-11] MEDS: RANOLAZINE 500 MG TABLET PO SCH (08:52)
[2019-03-11] MEDS: SACUBITRIL/VALSARTAN 49-51 MG TABLET PO SCH (08:52)
[2019-03-11] MEDS: amLODIPine 5 MG TABLET PO SCH (08:53)
[2019-03-11] MEDS: CARVEDILOL 12.5 MG TABLET PO SCH (08:53)
[2019-03-11] MEDS: PANTOPRAZOLE 40 MG TABLET PO SCH ×2 (08:53→08:54)
[2019-03-11] MEDS: ISOSORBIDE MONONITRATE 30 MG TABLET PO SCH (08:53)
[2019-03-11] MEDS: FLUoxetine 20 MG CAPSULE PO SCH (08:53)
[2019-03-11] MEDS: CLOPIDOGREL 75 MG TABLET PO SCH (08:53)
[2019-03-11] MEDS: hydrALAZINE 25 MG TABLET PO SCH (08:53)
[2019-03-11] MEDS: CALCIUM ACETATE 667 MG CAPSULE PO SCH ×2 (08:53→11:57)
[2019-03-11] MEDS: SPIRONOLACTONE 25 MG TABLET PO SCH (08:53)
[2019-03-11] MEDS: ASPIRIN EC 81 MG TABLET PO SCH (08:53)
[2019-03-11 12:09] VITALS: BP 131/76
== END 2019-03-11 14:10 | disposition home or self-care (01) ==
LOC: EDUNIT# → EDBD → N.EDINP 05:47 → N.ED 05:47 → SUATTDRO 08:02 → N.TELEN 08:22
PROVIDERS: ADMIT Nurse Practitioner Family; ATTEND Hospitalist

== ENCOUNTER 2019-04-08 22:03 | Inpatient (IN) ==
[2019-04-08] MEDS ORDERED: KETOROLAC 30 MG/1 ML VIAL IV STA (22:20)
[2019-04-08] MEDS ORDERED: VANCOMYCIN INJ 1,000 MG in SODIUM CHLORIDE 0.9% 250 ML IV STA (22:20)
[2019-04-08] MEDS ORDERED: methylPREDNISolone SOD SUC 125 MG/2 ML VIAL IV STA (22:20)
[2019-04-08 23:46] LABS: Basophils % 0.2 % (0.0-0.8); Eosinophils % 0.2 % (0.00-10.9); Hematocrit 29.6 VOL% (42.0-52.0); Hemoglobin 9.4 GM/DL (14.0-18.0); Immature Granulocytes % 0.2 %; Immature Granulocytes Absolute 0.01 #; Lymphocytes # 0.4 10*3/uL (1.4-4.0); Lymphocytes % 8.7 % (21.2-54.2); Mean Corpuscular HGB Conc 31.8 GM/DL (32-36); Mean Corpuscular Volume 103.1 FL (87-102); Mean Platelet Volume 10.3 FL (9.6-12.0); Monocytes % 11.1 % (1.7-12.7); Neutrophils % 79.6 % (38.7-73.9); Platelet Count 126 T/CUMM (130-400); Red Blood Count 2.87 MC/CUMM (3.8-5.5); Red Cell Distribution Width 16.9 % (9.3-17.3); White Blood Count 4.5 T/CUMM (4-12)
[2019-04-09 00:02] LABS: INR 1.1; PT Patient Result 11.7 SECS
[2019-04-09 00:07] LABS: Troponin I 0.041 NG/ML (0.00-0.045)
[2019-04-09 00:28] LABS: Calcium 7.9 MG/DL (8.5-10.1)
[2019-04-09 00:29] LABS: Albumin 3.6 G/DL (3.4-5.0); Bilirubin,Total 0.77 MG/DL (0.2-1.0); Osmolality,Calculated 285.5 MOS/KG (273-304); Total Protein 7.2 G/DL (6.4-8.3)
[2019-04-09 01:11] LABS: Sedimentation Rate-Westergren 75 MM/HR (0-15)
[2019-04-09] MEDS ORDERED: ACETAMINOPHEN 325 MG TABLET PO PRN (02:10)
[2019-04-09] MEDS ORDERED: ONDANSETRON 4 MG/2 ML VIAL IV PRN (02:10)
[2019-04-09] MEDS ORDERED: DOCUSATE SODIUM 100 MG CAPSULE PO PRN (02:10)
[2019-04-09] MEDS ORDERED: traZODone 50 MG TABLET PO PRN (02:10)
[2019-04-09] MEDS ORDERED: METHOCARBAMOL 750 MG TABLET PO PRN (02:16)
[2019-04-09] MEDS ORDERED: NITROGLYCERIN SL 0.4 MG TABLET SL PRN (02:16)
[2019-04-09] MEDS ORDERED: cefTRIAXone 1,000 MG in SYRINGE 1 EACH IV SCH (04:00)
[2019-04-09] MEDS: PANTOPRAZOLE 40 MG TABLET PO SCH ×3 (05:04→20:41)
[2019-04-09] MEDS: RANOLAZINE 500 MG TABLET PO SCH ×3 (05:04→20:41)
[2019-04-09] MEDS: SACUBITRIL/VALSARTAN 49-51 MG TABLET PO SCH ×3 (05:04→20:41)
[2019-04-09] MEDS: CARVEDILOL 12.5 MG TABLET PO SCH ×3 (05:04→20:41)
[2019-04-09 05:37] LABS: Basophils % 0.2 % (0.0-0.8); Hematocrit 30.4 VOL% (42.0-52.0); Hemoglobin 9.3 GM/DL (14.0-18.0); Immature Granulocytes % 0.5 %; Immature Granulocytes Absolute 0.03 #; Lymphocytes # 0.4 10*3/uL (1.4-4.0); Lymphocytes % 6.4 % (21.2-54.2); Mean Corpuscular HGB Conc 30.6 GM/DL (32-36); Mean Corpuscular Volume 104.1 FL (87-102); Mean Platelet Volume 10.1 FL (9.6-12.0); Neutrophils % 89.9 % (38.7-73.9); Platelet Count 132 T/CUMM (130-400); Red Blood Count 2.92 MC/CUMM (3.8-5.5); Red Cell Distribution Width 16.8 % (9.3-17.3); White Blood Count 6.3 T/CUMM (4-12)
[2019-04-09 05:57] LABS: Calcium 8.2 MG/DL (8.5-10.1)
[2019-04-09] MEDS: CALCIUM ACETATE 667 MG CAPSULE PO SCH ×3 (08:59→18:11)
[2019-04-09] MEDS: hydrALAZINE 25 MG TABLET PO SCH ×3 (09:00→20:41)
[2019-04-09] MEDS ORDERED: LEVOFLOXACIN 250 MG TABLET PO ONE (09:27)
[2019-04-09] MEDS ORDERED: VANCOMYCIN INJ 1,000 MG in SODIUM CHLORIDE 0.9% 250 ML IV ONE (09:37)
[2019-04-09] MEDS ORDERED: VANCOMYCIN INJ 750 MG in SODIUM CHLORIDE 0.9% 250 ML IV PRN (12:45)
[2019-04-09] MEDS: ENOXAPARIN 30 MG/0.3 ML SYRINGE SUBCUT SCH (13:07)
[2019-04-09] MEDS: ASPIRIN EC 81 MG TABLET PO SCH (13:07)
[2019-04-09] MEDS: FLUoxetine 20 MG CAPSULE PO SCH (13:07)
[2019-04-09] MEDS: CLOPIDOGREL 75 MG TABLET PO SCH (13:08)
[2019-04-09] MEDS: ISOSORBIDE MONONITRATE 30 MG TABLET PO SCH (13:08)
[2019-04-09] MEDS: SPIRONOLACTONE 25 MG TABLET PO SCH (13:08)
[2019-04-09] MEDS: amLODIPine 5 MG TABLET PO SCH (13:09)
[2019-04-09] MEDS ORDERED: VANCOMYCIN INJ 1,250 MG in SODIUM CHLORIDE 0.9% 250 ML IV ONE ×2 (17:00→20:00)
[2019-04-09] MEDS: ATORVASTATIN 40 MG TABLET PO SCH (20:41)
[2019-04-09] MEDS: CINACALCET 30 MG TABLET PO SCH (20:41)
[2019-04-10 04:03] LABS: Basophils % 0.1 % (0.0-0.8); Hematocrit 32.2 VOL% (42.0-52.0); Hemoglobin 10.1 GM/DL (14.0-18.0); Immature Granulocytes % 0.3 %; Immature Granulocytes Absolute 0.02 #; Lymphocytes # 0.9 10*3/uL (1.4-4.0); Lymphocytes % 11.6 % (21.2-54.2); Mean Corpuscular HGB Conc 31.4 GM/DL (32-36); Mean Corpuscular Volume 101.9 FL (87-102); Mean Platelet Volume 10.5 FL (9.6-12.0); Monocytes % 13.3 % (1.7-12.7); Neutrophils % 74.7 % (38.7-73.9); Platelet Count 143 T/CUMM (130-400); Red Blood Count 3.16 MC/CUMM (3.8-5.5); Red Cell Distribution Width 16.9 % (9.3-17.3); White Blood Count 7.5 T/CUMM (4-12)
[2019-04-10 04:32] LABS: Calcium 8.6 MG/DL (8.5-10.1); Osmolality,Calculated 282.8 MOS/KG (273-304)
[2019-04-10] MEDS ORDERED: MEPERIDINE 25 MG/1 ML VIAL ONE (07:26)
[2019-04-10] MEDS ORDERED: MIDAZOLAM 10 MG/2 ML VIAL ONE (07:27)
[2019-04-10] MEDS ORDERED: diphenhydrAMINE 50 MG/1 ML VIAL ONE (08:01)
[2019-04-10] MEDS ORDERED: MIDAZOLAM 2 MG/2 ML VIAL IV ONE (08:14)
[2019-04-10] MEDS ORDERED: diphenhydrAMINE 50 MG/1 ML VIAL IV ONE (08:15)
[2019-04-10] MEDS ORDERED: ceFAZolin 2,000 MG in PREMIX 1 EACH IV ONE (10:00)
[2019-04-10] MEDS: SACUBITRIL/VALSARTAN 49-51 MG TABLET PO SCH ×2 (10:06→20:49)
[2019-04-10] MEDS: PANTOPRAZOLE 40 MG TABLET PO SCH ×2 (10:06→20:49)
[2019-04-10] MEDS: ISOSORBIDE MONONITRATE 30 MG TABLET PO SCH (10:06)
[2019-04-10] MEDS: CALCIUM ACETATE 667 MG CAPSULE PO SCH ×3 (10:06→17:12)
[2019-04-10] MEDS: amLODIPine 5 MG TABLET PO SCH (10:06)
[2019-04-10] MEDS: CLOPIDOGREL 75 MG TABLET PO SCH (10:06)
[2019-04-10] MEDS: FLUoxetine 20 MG CAPSULE PO SCH (10:06)
[2019-04-10] MEDS: CARVEDILOL 12.5 MG TABLET PO SCH ×2 (10:06→20:49)
[2019-04-10] MEDS: RANOLAZINE 500 MG TABLET PO SCH ×2 (10:06→20:49)
[2019-04-10] MEDS: SODIUM CHLORIDE 0.9% 1,000 ML IV SCH (10:07)
[2019-04-10] MEDS: ENOXAPARIN 30 MG/0.3 ML SYRINGE SUBCUT SCH (10:07)
[2019-04-10] MEDS: hydrALAZINE 25 MG TABLET PO SCH ×3 (10:07→20:49)
[2019-04-10] MEDS: SPIRONOLACTONE 25 MG TABLET PO SCH (10:07)
[2019-04-10] MEDS: ASPIRIN EC 81 MG TABLET PO SCH (10:07)
[2019-04-10] MEDS: CINACALCET 30 MG TABLET PO SCH (20:49)
[2019-04-10] MEDS: ATORVASTATIN 40 MG TABLET PO SCH (20:49)
[2019-04-11] MEDS: SODIUM CHLORIDE 0.9% 1,000 ML IV SCH (07:52)
[2019-04-11] MEDS: ISOSORBIDE MONONITRATE 30 MG TABLET PO SCH (08:56)
[2019-04-11] MEDS: ENOXAPARIN 30 MG/0.3 ML SYRINGE SUBCUT SCH (08:56)
[2019-04-11] MEDS: SACUBITRIL/VALSARTAN 49-51 MG TABLET PO SCH ×2 (08:56→20:06)
[2019-04-11] MEDS: CALCIUM ACETATE 667 MG CAPSULE PO SCH ×3 (08:56→16:40)
[2019-04-11] MEDS: FLUoxetine 20 MG CAPSULE PO SCH (08:56)
[2019-04-11] MEDS: CLOPIDOGREL 75 MG TABLET PO SCH (08:56)
[2019-04-11] MEDS: PANTOPRAZOLE 40 MG TABLET PO SCH ×2 (08:56→20:07)
[2019-04-11] MEDS: RANOLAZINE 500 MG TABLET PO SCH ×2 (08:57→20:06)
[2019-04-11] MEDS: ASPIRIN EC 81 MG TABLET PO SCH (08:57)
[2019-04-11] MEDS: CARVEDILOL 12.5 MG TABLET PO SCH ×2 (08:57→20:07)
[2019-04-11] MEDS: SPIRONOLACTONE 25 MG TABLET PO SCH (08:57)
[2019-04-11] MEDS: hydrALAZINE 25 MG TABLET PO SCH ×3 (08:57→20:06)
[2019-04-11] MEDS: amLODIPine 5 MG TABLET PO SCH (08:57)
[2019-04-11] MEDS ORDERED: VANCOMYCIN INJ 750 MG in SODIUM CHLORIDE 0.9% 250 ML IV PRN (17:00)
[2019-04-11] MEDS ORDERED: VANCOMYCIN INJ 1,500 MG in SODIUM CHLORIDE 0.9% 500 ML IV ONE (17:00)
[2019-04-11] MEDS: CINACALCET 30 MG TABLET PO SCH (20:06)
[2019-04-11] MEDS: ATORVASTATIN 40 MG TABLET PO SCH (20:06)
[2019-04-12] MEDS: RANOLAZINE 500 MG TABLET PO SCH (09:17)
[2019-04-12] MEDS: PANTOPRAZOLE 40 MG TABLET PO SCH (09:17)
[2019-04-12] MEDS: CLOPIDOGREL 75 MG TABLET PO SCH (09:17)
[2019-04-12] MEDS: SACUBITRIL/VALSARTAN 49-51 MG TABLET PO SCH (09:17)
[2019-04-12] MEDS: CALCIUM ACETATE 667 MG CAPSULE PO SCH ×2 (09:17→12:21)
[2019-04-12] MEDS: amLODIPine 5 MG TABLET PO SCH (09:17)
[2019-04-12] MEDS: FLUoxetine 20 MG CAPSULE PO SCH (09:18)
[2019-04-12] MEDS: ENOXAPARIN 30 MG/0.3 ML SYRINGE SUBCUT SCH (09:18)
[2019-04-12] MEDS: ASPIRIN EC 81 MG TABLET PO SCH (09:18)
[2019-04-12] MEDS: ISOSORBIDE MONONITRATE 30 MG TABLET PO SCH (09:18)
[2019-04-12] MEDS: CARVEDILOL 12.5 MG TABLET PO SCH (09:18)
[2019-04-12] MEDS: hydrALAZINE 25 MG TABLET PO SCH ×2 (09:18→16:25)
[2019-04-12] MEDS: SPIRONOLACTONE 25 MG TABLET PO SCH (09:18)
[2019-04-12] MEDS: SODIUM CHLORIDE 0.9% 1,000 ML IV SCH (09:19)
[2019-04-12 15:48] VITALS: BP 143/80
[2019-04-14] MEDS ORDERED: ceFAZolin 2,000 MG in PREMIX 1 EACH IV SCH (17:00)
== END 2019-04-12 16:32 | disposition home or self-care (01) | DRG 871 ==
LOC: EDBD → EDUNIT# → N.ED 22:03 → INTOOBSV 04-09 02:11 → N.EDINP 04-09 02:11 → OBSVTOIN 04-09 02:11 → SUATTDRO 04-09 02:11 → N.5E 04-09 03:26
PROVIDERS: ADMIT Internal Medicine; ATTEND Internal Medicine Cardiovascular Disease

== ENCOUNTER 2019-05-28 10:46 | Observation (INO) ==
[2019-05-28 12:24] LABS: Basophils % 0.3 % (0.0-0.8); Eosinophils # 0.2 10*3/uL (0.0-0.87); Eosinophils % 4.7 % (0.00-10.9); Hematocrit 37.8 VOL% (42.0-52.0); Hemoglobin 11.8 GM/DL (14.0-18.0); Immature Granulocytes % 0.3 %; Immature Granulocytes Absolute 0.01 #; Lymphocytes # 0.8 10*3/uL (1.4-4.0); Lymphocytes % 25.2 % (21.2-54.2); Mean Corpuscular HGB Conc 31.2 GM/DL (32-36); Mean Corpuscular Volume 98.4 FL (87-102); Mean Platelet Volume 11.2 FL (9.6-12.0); Neutrophils % 56.5 % (38.7-73.9); Platelet Count 129 T/CUMM (130-400); Red Blood Count 3.84 MC/CUMM (3.8-5.5); Red Cell Distribution Width 14.6 % (9.3-17.3); White Blood Count 3.2 T/CUMM (4-12)
[2019-05-28 13:07] LABS: Albumin 3.7 G/DL (3.4-5.0); Bilirubin,Total 0.8 MG/DL (0.2-1.0); Calcium 7.8 MG/DL (8.5-10.1); Osmolality,Calculated 281.7 MOS/KG (273-304); Total Protein 7.5 G/DL (6.4-8.3)
[2019-05-28] MEDS ORDERED: ACETAMINOPHEN 325 MG TABLET PO PRN (14:52)
[2019-05-28] MEDS ORDERED: ONDANSETRON 4 MG/2 ML VIAL IV PRN (14:52)
[2019-05-28] MEDS ORDERED: ENOXAPARIN 30 MG/0.3 ML SYRINGE SUBCUT SCH (21:00)
[2019-05-29 04:49] LABS: Basophils % 0.3 % (0.0-0.8); Eosinophils # 0.1 10*3/uL (0.0-0.87); Eosinophils % 4.1 % (0.00-10.9); Hematocrit 35.7 VOL% (42.0-52.0); Immature Granulocytes % 0.3 %; Immature Granulocytes Absolute 0.01 #; Lymphocytes # 1.3 10*3/uL (1.4-4.0); Lymphocytes % 39.2 % (21.2-54.2); Mean Corpuscular HGB Conc 30.8 GM/DL (32-36); Mean Corpuscular Volume 98.9 FL (87-102); Mean Platelet Volume 11.4 FL (9.6-12.0); Monocytes % 15.3 % (1.7-12.7); Neutrophils % 40.8 % (38.7-73.9); Platelet Count 132 T/CUMM (130-400); Red Blood Count 3.61 MC/CUMM (3.8-5.5); Red Cell Distribution Width 14.3 % (9.3-17.3); White Blood Count 3.4 T/CUMM (4-12)
[2019-05-29 05:17] LABS: Calcium 7.7 MG/DL (8.5-10.1); Osmolality,Calculated 287.4 MOS/KG (273-304)
[2019-05-29 05:35] LABS: Platelet Estimate Decreased
[2019-05-29 05:36] LABS: Polychromasia Few
[2019-05-29] MEDS ORDERED: POTASSIUM CHLORIDE 20 MEQ TABLET PO PRN (08:44)
[2019-05-29] MEDS ORDERED: NITROGLYCERIN SL 0.4 MG TABLET SL PRN (08:45)
[2019-05-29] MEDS ORDERED: RANOLAZINE 500 MG TABLET PO SCH (09:00)
[2019-05-29] MEDS ORDERED: SPIRONOLACTONE 25 MG TABLET PO SCH (09:00)
[2019-05-29] MEDS ORDERED: CARVEDILOL 12.5 MG TABLET PO SCH (09:00)
[2019-05-29] MEDS ORDERED: amLODIPine 5 MG TABLET PO SCH (09:00)
[2019-05-29] MEDS ORDERED: ISOSORBIDE MONONITRATE 30 MG TABLET PO SCH (09:00)
[2019-05-29] MEDS ORDERED: SACUBITRIL/VALSARTAN 49-51 MG TABLET PO SCH (09:00)
[2019-05-29] MEDS ORDERED: hydrALAZINE 25 MG TABLET PO SCH (09:00)
[2019-05-29] MEDS ORDERED: CLOPIDOGREL 75 MG TABLET PO SCH (09:00)
[2019-05-29] MEDS ORDERED: PANTOPRAZOLE 40 MG TABLET PO SCH (09:00)
[2019-05-29] MEDS ORDERED: ASPIRIN EC 81 MG TABLET PO SCH (09:00)
[2019-05-29] MEDS ORDERED: CLOPIDOGREL 300 MG TABLET PO ONE (09:33)
[2019-05-29 11:27] VITALS: BP 141/89
[2019-05-29] MEDS ORDERED: ATORVASTATIN 40 MG TABLET PO SCH (21:00)
[2019-05-30] MEDS ORDERED: CLOPIDOGREL 75 MG TABLET PO SCH (09:00)
== END 2019-05-29 14:45 | disposition home or self-care (01) ==
LOC: EDUNIT# → EDBD → N.EDINP 10:46 → N.ED 10:46 → N.TELEN 15:29
PROVIDERS: ADMIT Internal Medicine; ATTEND Internal Medicine

== ENCOUNTER 2019-06-15 15:51 | Inpatient (IN) ==
[2019-06-15] MEDS ORDERED: ALBUTEROL/IPRATROPIUM 3 ML NEB RESP TX STA (16:11)
[2019-06-15] MEDS ORDERED: ONDANSETRON 4 MG/2 ML VIAL IV STA (16:11)
[2019-06-15] MEDS ORDERED: PANTOPRAZOLE 40 MG VIAL IV STA (16:13)
[2019-06-15] MEDS ORDERED: METOCLOPRAMIDE 10 MG/2 ML VIAL IV STA (16:14)
[2019-06-15 16:41] LABS: Basophils % 0.4 % (0.0-0.8); Eosinophils # 0.1 10*3/uL (0.0-0.87); Eosinophils % 2.5 % (0.00-10.9); Hematocrit 34.6 VOL% (42.0-52.0); Hemoglobin 10.8 GM/DL (14.0-18.0); Immature Granulocytes % 0.4 %; Immature Granulocytes Absolute 0.02 #; Lymphocytes # 1.4 10*3/uL (1.4-4.0); Lymphocytes % 29.2 % (21.2-54.2); Mean Corpuscular HGB Conc 31.2 GM/DL (32-36); Mean Corpuscular Volume 99.1 FL (87-102); Mean Platelet Volume 11.1 FL (9.6-12.0); Monocytes % 7.7 % (1.7-12.7); Neutrophils % 59.8 % (38.7-73.9); Platelet Count 80 T/CUMM (130-400); Red Blood Count 3.49 MC/CUMM (3.8-5.5); Red Cell Distribution Width 15.9 % (9.3-17.3); White Blood Count 4.8 T/CUMM (4-12)
[2019-06-15 16:51] LABS: INR 1.1; PT Patient Result 11.7 SECS; Partial Thromboplastin Time 23.1 SECS (0-40)
[2019-06-15 17:14] LABS: Alanine Aminotransferase 31 U/L (16-61); Albumin 3.8 G/DL (3.4-5.0); Alkaline Phosphatase 80 U/L (45-117); Aspartate Amino Transferase 30 U/L (0-37); Blood Urea Nitrogen 47 MG/DL (7-18); Calcium 7.9 MG/DL (8.5-10.1); Glucose 102 MG/DL (74-106); Osmolality,Calculated 292.3 MOS/KG (273-304); Total Protein 7.9 G/DL (6.4-8.3); Troponin I < 0.015 NG/ML (0.00-0.045)
[2019-06-15] MEDS ORDERED: ONDANSETRON 4 MG/2 ML VIAL IV PRN (17:34)
[2019-06-15] MEDS ORDERED: MECLIZINE 25 MG TABLET PO PRN (17:37)
[2019-06-15] MEDS ORDERED: NITROGLYCERIN SL 0.4 MG TABLET SL PRN (17:37)
[2019-06-15] MEDS: CINACALCET 30 MG TABLET PO SCH (21:43)
[2019-06-15] MEDS: SACUBITRIL/VALSARTAN 49-51 MG TABLET PO SCH (21:43)
[2019-06-15] MEDS: ATORVASTATIN 40 MG TABLET PO SCH (21:43)
[2019-06-15] MEDS: ACETAMINOPHEN 325 MG TABLET PO PRN (21:44)
[2019-06-15] MEDS: hydrALAZINE 25 MG TABLET PO SCH (21:44)
[2019-06-15] MEDS: RANOLAZINE 500 MG TABLET PO SCH (21:44)
[2019-06-15] MEDS: CARVEDILOL 12.5 MG TABLET PO SCH (21:44)
[2019-06-16 05:33] LABS: Basophils % 0.4 % (0.0-0.8); Eosinophils # 0.1 10*3/uL (0.0-0.87); Eosinophils % 1.8 % (0.00-10.9); Hematocrit 33.2 VOL% (42.0-52.0); Hemoglobin 10.4 GM/DL (14.0-18.0); Immature Granulocytes % 0.4 %; Immature Granulocytes Absolute 0.02 #; Lymphocytes # 1.2 10*3/uL (1.4-4.0); Lymphocytes % 21.3 % (21.2-54.2); Mean Corpuscular HGB Conc 31.3 GM/DL (32-36); Mean Corpuscular Volume 99.7 FL (87-102); Mean Platelet Volume 11.3 FL (9.6-12.0); Monocytes % 11.1 % (1.7-12.7); Platelet Count 144 T/CUMM (130-400); Red Blood Count 3.33 MC/CUMM (3.8-5.5); White Blood Count 5.7 T/CUMM (4-12)
[2019-06-16 06:21] LABS: Calcium 7.7 MG/DL (8.5-10.1); Osmolality,Calculated 295.4 MOS/KG (273-304); Risk Ratio 2.83; Thyroid Stimulating Hormone 3.48 uIU/ml (0.358-3.74); VLDL CHOLESTEROL 15.6 MG/DL
[2019-06-16] MEDS: CALCIUM ACETATE 667 MG CAPSULE PO SCH ×3 (08:59→16:19)
[2019-06-16] MEDS: CARVEDILOL 12.5 MG TABLET PO SCH ×2 (08:59→16:19)
[2019-06-16] MEDS: RANOLAZINE 500 MG TABLET PO SCH ×2 (08:59→22:07)
[2019-06-16] MEDS: SACUBITRIL/VALSARTAN 49-51 MG TABLET PO SCH ×2 (08:59→22:05)
[2019-06-16] MEDS: ISOSORBIDE MONONITRATE 30 MG TABLET PO SCH (09:00)
[2019-06-16] MEDS: SPIRONOLACTONE 25 MG TABLET PO SCH (09:00)
[2019-06-16] MEDS: amLODIPine 5 MG TABLET PO SCH (09:00)
[2019-06-16] MEDS ORDERED: FLUoxetine 20 MG CAPSULE PO SCH (09:00)
[2019-06-16] MEDS: PANTOPRAZOLE 40 MG TABLET PO SCH (09:00)
[2019-06-16] MEDS: hydrALAZINE 25 MG TABLET PO SCH ×2 (09:00→22:04)
[2019-06-16] MEDS: CLOPIDOGREL 75 MG TABLET PO SCH (09:00)
[2019-06-16] MEDS: ASPIRIN EC 81 MG TABLET PO SCH (09:00)
[2019-06-16] MEDS: CINACALCET 30 MG TABLET PO SCH (22:07)
[2019-06-16] MEDS: ATORVASTATIN 40 MG TABLET PO SCH (22:08)
[2019-06-16] MEDS: ACETAMINOPHEN 325 MG TABLET PO PRN (22:08)
[2019-06-17 07:12] LABS: Basophils % 0.3 % (0.0-0.8); Eosinophils % 0.5 % (0.00-10.9); Hematocrit 32.8 VOL% (42.0-52.0); Hemoglobin 10.5 GM/DL (14.0-18.0); Immature Granulocytes % 0.3 %; Immature Granulocytes Absolute 0.02 #; Lymphocytes # 1.1 10*3/uL (1.4-4.0); Lymphocytes % 18.3 % (21.2-54.2); Mean Corpuscular Volume 98.2 FL (87-102); Mean Platelet Volume 12.1 FL (9.6-12.0); Monocytes % 9.2 % (1.7-12.7); Neutrophils % 71.4 % (38.7-73.9); Platelet Count 126 T/CUMM (130-400); Red Blood Count 3.34 MC/CUMM (3.8-5.5); White Blood Count 5.9 T/CUMM (4-12)
[2019-06-17 07:27] LABS: Calcium 7.9 MG/DL (8.5-10.1)
[2019-06-17] MEDS ORDERED: FLUoxetine 20 MG CAPSULE PO SCH (08:05)
[2019-06-17] MEDS: SACUBITRIL/VALSARTAN 49-51 MG TABLET PO SCH (09:16)
[2019-06-17] MEDS: CARVEDILOL 12.5 MG TABLET PO SCH ×2 (09:16→16:41)
[2019-06-17] MEDS: CALCIUM ACETATE 667 MG CAPSULE PO SCH ×3 (09:16→16:40)
[2019-06-17] MEDS: ASPIRIN EC 81 MG TABLET PO SCH (09:17)
[2019-06-17] MEDS: PANTOPRAZOLE 40 MG TABLET PO SCH (09:18)
[2019-06-17] MEDS: amLODIPine 5 MG TABLET PO SCH (09:18)
[2019-06-17] MEDS: RANOLAZINE 500 MG TABLET PO SCH (09:18)
[2019-06-17] MEDS: SPIRONOLACTONE 25 MG TABLET PO SCH (09:18)
[2019-06-17] MEDS: hydrALAZINE 25 MG TABLET PO SCH (09:18)
[2019-06-17] MEDS: ISOSORBIDE MONONITRATE 30 MG TABLET PO SCH (09:18)
[2019-06-17] MEDS: CLOPIDOGREL 75 MG TABLET PO SCH (09:18)
[2019-06-17 16:07] VITALS: BP 100/62
== END 2019-06-17 18:45 | disposition hospice, home (50) | DRG 291 ==
LOC: EDBD → EDUNIT# → N.ED 15:51 → SUATTDRO 17:33 → N.EDINP 17:33 → N.5E 18:55
PROVIDERS: ADMIT Internal Medicine; ATTEND Hospitalist

== ENCOUNTER 2019-07-11 05:34 | Observation (INO) ==
[2019-07-11] MEDS ORDERED: ASPIRIN 325 MG TABLET PO STA (06:38)
[2019-07-11] MEDS ORDERED: NITROGLYCERIN SL 0.4 MG TABLET SL PRN (06:38)
[2019-07-11 07:23] LABS: Calcium 7.1 MG/DL (8.5-10.1); Osmolality,Calculated 284.7 MOS/KG (273-304)
[2019-07-11 07:55] LABS: Basophils % 0.8 % (0.0-0.8); Eosinophils # 0.1 10*3/uL (0.0-0.87); Eosinophils % 2.4 % (0.00-10.9); Hematocrit 36.8 VOL% (42.0-52.0); Hemoglobin 11.5 GM/DL (14.0-18.0); Immature Granulocytes % 0.5 %; Immature Granulocytes Absolute 0.02 #; Lymphocytes # 1.2 10*3/uL (1.4-4.0); Lymphocytes % 31.9 % (21.2-54.2); Mean Corpuscular HGB Conc 31.3 GM/DL (32-36); Mean Corpuscular Volume 100.3 FL (87-102); Mean Platelet Volume 10.8 FL (9.6-12.0); Monocytes % 9.1 % (1.7-12.7); Neutrophils % 55.3 % (38.7-73.9); Platelet Count 168 T/CUMM (130-400); Red Blood Count 3.67 MC/CUMM (3.8-5.5); Red Cell Distribution Width 16.8 % (9.3-17.3); White Blood Count 3.7 T/CUMM (4-12)
[2019-07-11 08:03] LABS: PT Patient Result 11.3 SECS (9.6-12.2); Partial Thromboplastin Time 28.5 SECS (20.8-36.0)
[2019-07-11] MEDS ORDERED: ACETAMINOPHEN 325 MG TABLET PO PRN (10:43)
[2019-07-11] MEDS: CARVEDILOL 12.5 MG TABLET PO SCH ×2 (15:22→20:27)
[2019-07-11] MEDS: ISOSORBIDE MONONITRATE 30 MG TABLET PO SCH (15:22)
[2019-07-11] MEDS: SACUBITRIL/VALSARTAN 49-51 MG TABLET PO SCH (20:27)
[2019-07-11] MEDS: hydrALAZINE 25 MG TABLET PO SCH (20:28)
[2019-07-11] MEDS ORDERED: ATORVASTATIN 40 MG TABLET PO SCH (21:00)
[2019-07-12] MEDS ORDERED: ZALEPLON 5 MG CAPSULE PO PRN (00:47)
[2019-07-12 04:21] LABS: Basophils # 0.1 10*3/uL (0.0-0.2); Basophils % 0.8 % (0.0-0.8); Eosinophils # 0.1 10*3/uL (0.0-0.87); Eosinophils % 1.3 % (0.00-10.9); Hematocrit 31.1 VOL% (42.0-52.0); Hemoglobin 9.8 GM/DL (14.0-18.0); Immature Granulocytes % 0.3 %; Immature Granulocytes Absolute 0.02 #; Lymphocytes # 1.1 10*3/uL (1.4-4.0); Lymphocytes % 17.8 % (21.2-54.2); Mean Corpuscular HGB Conc 31.5 GM/DL (32-36); Mean Platelet Volume 11.2 FL (9.6-12.0); Monocytes % 7.2 % (1.7-12.7); Neutrophils % 72.6 % (38.7-73.9); Platelet Count 186 T/CUMM (130-400); Red Blood Count 3.08 MC/CUMM (3.8-5.5); Red Cell Distribution Width 16.9 % (9.3-17.3)
[2019-07-12 05:11] LABS: Osmolality,Calculated 282.5 MOS/KG (273-304); Risk Ratio 3.27; Thyroid Stimulating Hormone 1.82 uIU/ml (0.358-3.74); VLDL CHOLESTEROL 18.4 MG/DL
[2019-07-12 08:01] VITALS: BP 133/78
[2019-07-12] MEDS: ISOSORBIDE MONONITRATE 30 MG TABLET PO SCH (08:12)
[2019-07-12] MEDS: CARVEDILOL 12.5 MG TABLET PO SCH (08:12)
[2019-07-12] MEDS: hydrALAZINE 25 MG TABLET PO SCH (08:12)
[2019-07-12] MEDS: SACUBITRIL/VALSARTAN 49-51 MG TABLET PO SCH (08:12)
[2019-07-12] MEDS ORDERED: amLODIPine 5 MG TABLET PO SCH (09:00)
[2019-07-12] MEDS ORDERED: SPIRONOLACTONE 25 MG TABLET PO SCH (09:00)
[2019-07-12] MEDS ORDERED: ASPIRIN EC 81 MG TABLET PO SCH (09:00)
[2019-07-12] MEDS ORDERED: PANTOPRAZOLE 40 MG TABLET PO SCH (09:00)
[2019-07-12] MEDS ORDERED: CLOPIDOGREL 75 MG TABLET PO SCH (09:00)
== END 2019-07-12 12:32 | disposition home or self-care (01) ==
LOC: EDUNIT# → EDBD → N.ED 05:34 → N.EDINP 05:34 → N.TELEN 12:00
PROVIDERS: ADMIT Internal Medicine; ATTEND Internal Medicine

== ENCOUNTER 2019-10-21 07:43 | Observation (INO) ==
[2019-10-21] MEDS ORDERED: ASPIRIN 325 MG TABLET PO STA (08:04)
[2019-10-21 09:07] LABS: Basophils % 0.9 % (0.0-0.8); Eosinophils % 1.8 % (0.00-10.9); Hematocrit 49.9 VOL% (42.0-52.0); Hemoglobin 16.1 GM/DL (14.0-18.0); Immature Granulocytes % 1.3 %; Immature Granulocytes Absolute 0.03 #; Lymphocytes # 0.3 10*3/uL (1.4-4.0); Lymphocytes % 12.9 % (21.2-54.2); Mean Corpuscular HGB Conc 32.3 GM/DL (32-36); Mean Corpuscular Volume 100.8 FL (87-102); Mean Platelet Volume 10.7 FL (9.6-12.0); Monocytes % 9.4 % (1.7-12.7); Neutrophils % 73.7 % (38.7-73.9); Red Blood Count 4.95 MC/CUMM (3.8-5.5); Red Cell Distribution Width 15.9 % (9.3-17.3); White Blood Count 2.2 T/CUMM (4-12)
[2019-10-21 09:09] LABS: Platelet Count 75 T/CUMM (130-400)
[2019-10-21 09:14] LABS: INR 1.2; PT Patient Result 12.6 SECS (9.6-12.2); Partial Thromboplastin Time 29.4 SECS (20.8-36.0)
[2019-10-21 09:24] LABS: Albumin 2.9 G/DL (3.4-5.0); Bilirubin,Total 0.7 MG/DL (0.2-1.0); Calcium 6.8 MG/DL (8.5-10.1); Osmolality,Calculated 289.3 MOS/KG (273-304); Total Protein 6.4 G/DL (6.4-8.3)
[2019-10-21] MEDS ORDERED: ACETAMINOPHEN 325 MG TABLET PO PRN (11:28)
[2019-10-21] MEDS ORDERED: ONDANSETRON 4 MG/2 ML VIAL IV PRN (11:28)
[2019-10-21] MEDS ORDERED: ENOXAPARIN 30 MG/0.3 ML SYRINGE SUBCUT SCH (11:30)
[2019-10-21] MEDS: carvediloL 25 MG TABLET PO SCH (16:26)
[2019-10-21] MEDS: CALCIUM ACETATE 667 MG CAPSULE PO SCH ×2 (16:26→21:04)
[2019-10-21] MEDS: ATORVASTATIN 40 MG TABLET PO SCH (21:01)
[2019-10-21] MEDS: RANOLAZINE 500 MG TABLET PO SCH (21:02)
[2019-10-21] MEDS: PANTOPRAZOLE 40 MG TABLET PO SCH (21:02)
[2019-10-21] MEDS: hydrALAZINE 25 MG TABLET PO SCH (21:02)
[2019-10-21] MEDS: CINACALCET 30 MG TABLET PO SCH (21:03)
[2019-10-21] MEDS: traZODone 50 MG TABLET PO SCH (21:04)
[2019-10-22 08:23] LABS: Basophils % 0.6 % (0.0-0.8); Eosinophils # 0.1 10*3/uL (0.0-0.87); Eosinophils % 1.2 % (0.00-10.9); Hematocrit 31.9 VOL% (42.0-52.0); Hemoglobin 10.1 GM/DL (14.0-18.0); Immature Granulocytes % 0.4 %; Immature Granulocytes Absolute 0.02 #; Lymphocytes # 1.2 10*3/uL (1.4-4.0); Lymphocytes % 24.3 % (21.2-54.2); Mean Corpuscular HGB Conc 31.7 GM/DL (32-36); Mean Corpuscular Volume 101.3 FL (87-102); Mean Platelet Volume 10.5 FL (9.6-12.0); Monocytes % 8.4 % (1.7-12.7); Neutrophils % 65.1 % (38.7-73.9); Platelet Count 199 T/CUMM (130-400); Red Blood Count 3.15 MC/CUMM (3.8-5.5); Red Cell Distribution Width 15.9 % (9.3-17.3); White Blood Count 4.9 T/CUMM (4-12)
[2019-10-22] MEDS: CALCIUM ACETATE 667 MG CAPSULE PO SCH ×4 (08:23→23:56)
[2019-10-22] MEDS: PANTOPRAZOLE 40 MG TABLET PO SCH ×2 (08:23→23:56)
[2019-10-22] MEDS: FLUoxetine 20 MG CAPSULE PO SCH (08:23)
[2019-10-22] MEDS: carvediloL 25 MG TABLET PO SCH ×2 (08:23→17:28)
[2019-10-22] MEDS: CLOPIDOGREL 75 MG TABLET PO SCH (08:24)
[2019-10-22] MEDS: ASPIRIN EC 81 MG TABLET PO SCH (08:24)
[2019-10-22] MEDS: amLODIPine 5 MG TABLET PO SCH (08:24)
[2019-10-22] MEDS: RANOLAZINE 500 MG TABLET PO SCH ×2 (08:24→23:55)
[2019-10-22] MEDS: SPIRONOLACTONE 25 MG TABLET PO SCH (08:24)
[2019-10-22 08:40] LABS: Calcium 7.4 MG/DL (8.5-10.1); Osmolality,Calculated 288.5 MOS/KG (273-304)
[2019-10-22] MEDS ORDERED: PANTOPRAZOLE 40 MG TABLET PO SCH (09:00)
[2019-10-22] MEDS: hydrALAZINE 25 MG TABLET PO SCH ×2 (10:25→23:58)
[2019-10-22] MEDS ORDERED: ALBUTEROL/IPRATROPIUM 3 ML NEB RESP TX PRN (13:32)
[2019-10-22] MEDS: CINACALCET 30 MG TABLET PO SCH (23:55)
[2019-10-22] MEDS: traZODone 50 MG TABLET PO SCH (23:56)
[2019-10-22] MEDS: ATORVASTATIN 40 MG TABLET PO SCH (23:56)
[2019-10-23] MEDS: CALCIUM ACETATE 667 MG CAPSULE PO SCH ×2 (08:52→12:13)
[2019-10-23] MEDS: amLODIPine 5 MG TABLET PO SCH (08:53)
[2019-10-23] MEDS: FLUoxetine 20 MG CAPSULE PO SCH (08:53)
[2019-10-23] MEDS: CLOPIDOGREL 75 MG TABLET PO SCH (08:54)
[2019-10-23] MEDS: ASPIRIN EC 81 MG TABLET PO SCH (08:54)
[2019-10-23] MEDS: PANTOPRAZOLE 40 MG TABLET PO SCH (08:55)
[2019-10-23] MEDS: SPIRONOLACTONE 25 MG TABLET PO SCH (08:55)
[2019-10-23] MEDS: RANOLAZINE 500 MG TABLET PO SCH (08:55)
[2019-10-23] MEDS: carvediloL 25 MG TABLET PO SCH (08:55)
[2019-10-23] MEDS: hydrALAZINE 25 MG TABLET PO SCH (08:57)
[2019-10-23 12:23] VITALS: BP 144/87
== END 2019-10-23 16:27 | disposition home or self-care (01) ==
LOC: EDBD → EDUNIT# → N.ED 07:43 → N.EDINP 07:43 → N.2W 12:22
PROVIDERS: ADMIT Internal Medicine Cardiovascular Disease; ATTEND Internal Medicine Cardiovascular Disease

== ENCOUNTER 2019-11-22 01:15 | Inpatient (IN) ==
[2019-11-22 02:06] LABS: Albumin 2.9 G/DL (3.4-5.0); Bilirubin,Total 1.4 MG/DL (0.2-1.0); Calcium 6.3 MG/DL (8.5-10.1); Osmolality,Calculated 287.4 MOS/KG (273-304); Total Protein 6.8 G/DL (6.4-8.3)
[2019-11-22] MEDS ORDERED: SODIUM CHLORIDE 0.9% 250 ML IV STA (02:15)
[2019-11-22] MEDS ORDERED: ONDANSETRON 4 MG/2 ML VIAL IV ONE (02:16)
[2019-11-22] MEDS ORDERED: MORPHINE 4 MG/1 ML VIAL IV STA (02:16)
[2019-11-22 02:46] LABS: Basophils % 0.6 % (0.0-0.8); Eosinophils % 0.6 % (0.00-10.9); Hemoglobin 9.4 GM/DL (14.0-18.0); Immature Granulocytes % 0.8 %; Immature Granulocytes Absolute 0.04 #; Lymphocytes # 1.3 10*3/uL (1.4-4.0); Lymphocytes % 27.1 % (21.2-54.2); Mean Corpuscular HGB Conc 31.3 GM/DL (32-36); Mean Corpuscular Volume 103.4 FL (87-102); Mean Platelet Volume 10.1 FL (9.6-12.0); Monocytes % 9.3 % (1.7-12.7); Neutrophils % 61.6 % (38.7-73.9); Platelet Count 158 T/CUMM (130-400); White Blood Count 4.7 T/CUMM (4-12)
[2019-11-22] MEDS ORDERED: hydrALAZINE 20 MG/1 ML VIAL IV PRN (05:08)
[2019-11-22] MEDS ORDERED: GLUCAGON 1 MG VIAL IM PRN ×2 (05:09→05:13)
[2019-11-22] MEDS ORDERED: DEXTROSE 50% 25 GM/50 ML VIAL IV PRN ×2 (05:09→05:13)
[2019-11-22] MEDS ORDERED: ASPIRIN CHEW 81 MG TABLET PO STA (05:10)
[2019-11-22] MEDS ORDERED: SODIUM POLYSTYRENE SULFATE 15 GM/60 ML BOTTLE PO STA (05:11)
[2019-11-22] MEDS ORDERED: ZALEPLON 5 MG CAPSULE PO PRN (05:13)
[2019-11-22] MEDS ORDERED: diphenhydrAMINE CAP 25 MG CAPSULE PO PRN (05:13)
[2019-11-22] MEDS ORDERED: PROMETHAZINE 25 MG TABLET PO PRN (05:13)
[2019-11-22] MEDS ORDERED: DOCUSATE SODIUM 100 MG CAPSULE PO PRN (05:13)
[2019-11-22] MEDS ORDERED: guaiFENesin/DM ER 600-30 MG TABLET PO PRN (05:13)
[2019-11-22] MEDS: HEPARIN 5,000 UNIT/1 ML VIAL SUBCUT SCH ×2 (07:59→18:08)
[2019-11-22] MEDS: FLUoxetine 20 MG CAPSULE PO SCH (08:00)
[2019-11-22] MEDS: PANTOPRAZOLE 40 MG TABLET PO SCH (08:00)
[2019-11-22] MEDS: CLOPIDOGREL 75 MG TABLET PO SCH (08:00)
[2019-11-22 08:01] LABS: Hepatitis B Core IgM Quant 0.06 Index; Hepatitis B Surface Ag Quant < 0.10 Index; Hepatitis B Surface Ag Result Negative (Negative); Hepatitis C Virus Ab Quant 0.08 Index; Hepatitis C Virus Ab Result Negative (Negative)
[2019-11-22] MEDS: SPIRONOLACTONE 25 MG TABLET PO SCH (08:04)
[2019-11-22] MEDS: INSULIN LISPRO 100 UNIT/ML SUBCUT SCH ×4 (08:05→20:57)
[2019-11-22] MEDS: ONDANSETRON 4 MG/2 ML VIAL IV PRN (11:22)
[2019-11-23] MEDS: HEPARIN 5,000 UNIT/1 ML VIAL SUBCUT SCH ×2 (04:29→17:33)
[2019-11-23 04:38] LABS: Basophils % 0.7 % (0.0-0.8); Eosinophils # 0.1 10*3/uL (0.0-0.87); Eosinophils % 0.8 % (0.00-10.9); Hematocrit 29.1 VOL% (42.0-52.0); Hemoglobin 9.3 GM/DL (14.0-18.0); Immature Granulocytes % 0.8 %; Immature Granulocytes Absolute 0.05 #; Lymphocytes # 1.5 10*3/uL (1.4-4.0); Lymphocytes % 25.2 % (21.2-54.2); Mean Corpuscular Volume 101.7 FL (87-102); Mean Platelet Volume 10.6 FL (9.6-12.0); Monocytes % 13.2 % (1.7-12.7); Neutrophils % 59.3 % (38.7-73.9); Platelet Count 152 T/CUMM (130-400); Red Blood Count 2.86 MC/CUMM (3.8-5.5); Red Cell Distribution Width 16.5 % (9.3-17.3); White Blood Count 5.9 T/CUMM (4-12)
[2019-11-23 06:12] LABS: Bilirubin,Direct 0.77 MG/DL (0.0-0.20); Bilirubin,Total 1.8 MG/DL (0.2-1.0); Total Protein 7.4 G/DL (6.4-8.3)
[2019-11-23 06:51] LABS: Albumin 3.1 G/DL (3.4-5.0); Bilirubin,Total 1.8 MG/DL (0.2-1.0); Calcium 7.4 MG/DL (8.5-10.1); Osmolality,Calculated 273.2 MOS/KG (273-304); Total Protein 7.4 G/DL (6.4-8.3)
[2019-11-23] MEDS: INSULIN LISPRO 100 UNIT/ML SUBCUT SCH ×4 (07:59→21:24)
[2019-11-23] MEDS: FLUoxetine 20 MG CAPSULE PO SCH (08:01)
[2019-11-23] MEDS: PANTOPRAZOLE 40 MG TABLET PO SCH (08:01)
[2019-11-23] MEDS: CLOPIDOGREL 75 MG TABLET PO SCH (08:02)
[2019-11-23] MEDS: SPIRONOLACTONE 25 MG TABLET PO SCH (08:02)
[2019-11-23] MEDS: ONDANSETRON 4 MG/2 ML VIAL IV PRN (19:53)
[2019-11-24] MEDS: HEPARIN 5,000 UNIT/1 ML VIAL SUBCUT SCH ×2 (05:31→17:50)
[2019-11-24 06:05] LABS: Albumin 2.9 G/DL (3.4-5.0); Bilirubin,Direct 1.41 MG/DL (0.0-0.20); Bilirubin,Indirect 1.8 MG/DL (0.0-1.0); Bilirubin,Total 3.2 MG/DL (0.2-1.0); Total Protein 7.2 G/DL (6.4-8.3)
[2019-11-24] MEDS: INSULIN LISPRO 100 UNIT/ML SUBCUT SCH ×4 (08:41→21:17)
[2019-11-24] MEDS: CLOPIDOGREL 75 MG TABLET PO SCH (08:43)
[2019-11-24] MEDS: PANTOPRAZOLE 40 MG TABLET PO SCH (08:43)
[2019-11-24] MEDS: FLUoxetine 20 MG CAPSULE PO SCH (08:44)
[2019-11-24] MEDS: SPIRONOLACTONE 25 MG TABLET PO SCH (08:44)
[2019-11-25] MEDS: HEPARIN 5,000 UNIT/1 ML VIAL SUBCUT SCH ×2 (04:31→17:25)
[2019-11-25 06:30] LABS: Basophils # 0.1 10*3/uL (0.0-0.2); Eosinophils # 0.1 10*3/uL (0.0-0.87); Eosinophils % 2.5 % (0.00-10.9); Hematocrit 32.8 VOL% (42.0-52.0); Hemoglobin 10.5 GM/DL (14.0-18.0); Immature Granulocytes % 1.3 %; Immature Granulocytes Absolute 0.07 #; Lymphocytes # 0.7 10*3/uL (1.4-4.0); Mean Corpuscular Volume 100.9 FL (87-102); Mean Platelet Volume 10.6 FL (9.6-12.0); Monocytes % 13.1 % (1.7-12.7); NRBC # 0.06 10*3/uL; Neutrophils % 68.1 % (38.7-73.9); Platelet Count 125 T/CUMM (130-400); Red Blood Count 3.25 MC/CUMM (3.8-5.5); Red Cell Distribution Width 16.4 % (9.3-17.3); White Blood Count 5.2 T/CUMM (4-12)
[2019-11-25 07:06] LABS: Albumin 2.8 G/DL (3.4-5.0); Bilirubin,Direct 1.35 MG/DL (0.0-0.20); Bilirubin,Indirect 1.2 MG/DL (0.0-1.0); Bilirubin,Total 2.5 MG/DL (0.2-1.0); Calcium 7.4 MG/DL (8.5-10.1); Osmolality,Calculated 277.1 MOS/KG (273-304); Total Protein 7.2 G/DL (6.4-8.3)
[2019-11-25] MEDS: INSULIN LISPRO 100 UNIT/ML SUBCUT SCH ×4 (08:04→20:59)
[2019-11-25] MEDS: SPIRONOLACTONE 25 MG TABLET PO SCH (08:43)
[2019-11-25] MEDS: FLUoxetine 20 MG CAPSULE PO SCH (08:43)
[2019-11-25] MEDS: CLOPIDOGREL 75 MG TABLET PO SCH (08:44)
[2019-11-25] MEDS: PANTOPRAZOLE 40 MG TABLET PO SCH (08:44)
[2019-11-26] MEDS: HEPARIN 5,000 UNIT/1 ML VIAL SUBCUT SCH ×2 (05:12→19:17)
[2019-11-26 05:26] LABS: Basophils % 0.8 % (0.0-0.8); Eosinophils # 0.2 10*3/uL (0.0-0.87); Hemoglobin 9.7 GM/DL (14.0-18.0); Immature Granulocytes % 1.7 %; Immature Granulocytes Absolute 0.09 #; Lymphocytes # 1.2 10*3/uL (1.4-4.0); Lymphocytes % 23.1 % (21.2-54.2); Mean Corpuscular HGB Conc 32.3 GM/DL (32-36); Monocytes % 16.1 % (1.7-12.7); Neutrophils % 55.3 % (38.7-73.9); Platelet Count 158 T/CUMM (130-400); Red Blood Count 3.03 MC/CUMM (3.8-5.5); Red Cell Distribution Width 16.2 % (9.3-17.3); White Blood Count 5.3 T/CUMM (4-12)
[2019-11-26 05:42] LABS: Albumin 2.7 G/DL (3.4-5.0); Bilirubin,Direct 1.12 MG/DL (0.0-0.20); Bilirubin,Total 2.1 MG/DL (0.2-1.0); Osmolality,Calculated 279.4 MOS/KG (273-304); Total Protein 6.9 G/DL (6.4-8.3)
[2019-11-26 05:54] LABS: Anisocytosis 1+; Eosinophils 4 % (0-10); Hypochromasia 1+; Lymphocytes 30 % (20-55); Nucleated Red Blood Cells 1 (0-5); Segmented Neutrophils 51 % (50-85); Total Cells Counted 100
[2019-11-26 05:55] LABS: Ovalocytes 1+; Platelet Estimate Normal
[2019-11-26] MEDS: PANTOPRAZOLE 40 MG TABLET PO SCH (08:53)
[2019-11-26] MEDS: FLUoxetine 20 MG CAPSULE PO SCH (08:53)
[2019-11-26] MEDS: SPIRONOLACTONE 25 MG TABLET PO SCH (08:54)
[2019-11-26] MEDS: INSULIN LISPRO 100 UNIT/ML SUBCUT SCH ×4 (08:54→23:12)
[2019-11-26] MEDS: CLOPIDOGREL 75 MG TABLET PO SCH (08:54)
[2019-11-27] MEDS: HEPARIN 5,000 UNIT/1 ML VIAL SUBCUT SCH ×2 (05:20→17:34)
[2019-11-27 05:49] LABS: Basophils # 0.1 10*3/uL (0.0-0.2); Basophils % 1.2 % (0.0-0.8); Eosinophils # 0.2 10*3/uL (0.0-0.87); Eosinophils % 3.1 % (0.00-10.9); Hemoglobin 9.7 GM/DL (14.0-18.0); Immature Granulocytes % 2.1 %; Immature Granulocytes Absolute 0.12 #; Lymphocytes # 1.7 10*3/uL (1.4-4.0); Lymphocytes % 28.7 % (21.2-54.2); Mean Corpuscular HGB Conc 32.3 GM/DL (32-36); Monocytes % 16.8 % (1.7-12.7); NRBC # 0.07 10*3/uL; Neutrophils % 48.1 % (38.7-73.9); Platelet Count 139 T/CUMM (130-400); Red Cell Distribution Width 16.6 % (9.3-17.3); White Blood Count 5.8 T/CUMM (4-12)
[2019-11-27 06:14] LABS: Eosinophils 5 % (0-10); Lymphocytes 27 % (20-55); Nucleated Red Blood Cells 4 (0-5); Segmented Neutrophils 50 % (50-85); Total Cells Counted 100
[2019-11-27 06:15] LABS: Hypochromasia 1+; Platelet Estimate Normal
[2019-11-27 06:31] LABS: Albumin 2.8 G/DL (3.4-5.0); Bilirubin,Direct 0.88 MG/DL (0.0-0.20); Bilirubin,Indirect 1.2 MG/DL (0.0-1.0); Bilirubin,Total 2.1 MG/DL (0.2-1.0); Calcium 7.1 MG/DL (8.5-10.1); Osmolality,Calculated 277.4 MOS/KG (273-304); Total Protein 6.9 G/DL (6.4-8.3)
[2019-11-27] MEDS: INSULIN LISPRO 100 UNIT/ML SUBCUT SCH ×4 (09:19→21:53)
[2019-11-27] MEDS: SPIRONOLACTONE 25 MG TABLET PO SCH (09:20)
[2019-11-27] MEDS: FLUoxetine 20 MG CAPSULE PO SCH (09:20)
[2019-11-27] MEDS: PANTOPRAZOLE 40 MG TABLET PO SCH (09:20)
[2019-11-27] MEDS: CLOPIDOGREL 75 MG TABLET PO SCH (09:20)
[2019-11-28 06:24] LABS: Albumin 2.9 G/DL (3.4-5.0); Bilirubin,Direct 0.68 MG/DL (0.0-0.20); Bilirubin,Indirect 1.5 MG/DL (0.0-1.0); Bilirubin,Total 2.2 MG/DL (0.2-1.0); Total Protein 7.4 G/DL (6.4-8.3)
[2019-11-28] MEDS: HEPARIN 5,000 UNIT/1 ML VIAL SUBCUT SCH (06:27)
[2019-11-28] MEDS: INSULIN LISPRO 100 UNIT/ML SUBCUT SCH ×2 (10:17→12:39)
[2019-11-28] MEDS: PANTOPRAZOLE 40 MG TABLET PO SCH (12:38)
[2019-11-28] MEDS: CLOPIDOGREL 75 MG TABLET PO SCH (12:38)
[2019-11-28] MEDS: FLUoxetine 20 MG CAPSULE PO SCH (12:38)
[2019-11-28] MEDS: SPIRONOLACTONE 25 MG TABLET PO SCH (12:38)
[2019-11-28 14:56] VITALS: BP 138/80
== END 2019-11-28 14:25 | disposition home health service (06) | DRG 441 ==
LOC: EDUNIT# → EDBD → N.EDINP 01:15 → N.ED 01:15 → SUATTDRO 05:13 → N.5E 06:08
PROVIDERS: ADMIT Internal Medicine; ATTEND Internal Medicine

== ENCOUNTER 2020-06-23 11:41 | Observation (INO) ==
[2020-06-23] MEDS ORDERED: NITROGLYCERIN 2% OINT 1 INCH/GM PACK TOP STA (11:47)
[2020-06-23] MEDS ORDERED: ASPIRIN 325 MG TABLET PO STA (11:47)
[2020-06-23] MEDS ORDERED: MORPHINE 4 MG/1 ML VIAL IV STA (11:47)
[2020-06-23] MEDS ORDERED: ONDANSETRON 4 MG/2 ML VIAL IV STA (11:47)
[2020-06-23 12:24] LABS: Basophils % 0.7 % (0.0-0.8); Eosinophils # 0.1 10*3/uL (0.0-0.87); Eosinophils % 1.9 % (0.00-10.9); Hematocrit 36.2 VOL% (42.0-52.0); Hemoglobin 12.1 GM/DL (14.0-18.0); Immature Granulocytes % 0.5 %; Immature Granulocytes Absolute 0.03 #; Lymphocytes # 1.5 10*3/uL (1.4-4.0); Lymphocytes % 26.1 % (21.2-54.2); Mean Corpuscular HGB Conc 33.4 GM/DL (32-36); Mean Corpuscular Volume 102.8 FL (87-102); Mean Platelet Volume 10.3 FL (9.6-12.0); Monocytes % 14.1 % (1.7-12.7); Neutrophils % 56.7 % (38.7-73.9); Platelet Count 156 T/CUMM (130-400); Red Blood Count 3.52 MC/CUMM (3.8-5.5); Red Cell Distribution Width 14.3 % (9.3-17.3); White Blood Count 5.9 T/CUMM (4-12)
[2020-06-23 12:27] LABS: Bilirubin,Total 1.4 MG/DL (0.2-1.0); Calcium 8.7 MG/DL (8.5-10.1); Osmolality,Calculated 274.1 MOS/KG (273-304); Total Protein 9.6 G/DL (6.4-8.3)
[2020-06-23 12:34] LABS: INR 1.1; PT Patient Result 11.5 SECS (9.8-11.9); Partial Thromboplastin Time 40.5 SECS (23.9-33.8)
[2020-06-23] MEDS ORDERED: DEXTROSE 50% 25 GM/50 ML VIAL IV PRN (13:36)
[2020-06-23] MEDS ORDERED: GLUCAGON 1 MG VIAL IM PRN (13:36)
[2020-06-23] MEDS ORDERED: MORPHINE 4 MG/1 ML VIAL IV PRN (13:36)
[2020-06-23] MEDS ORDERED: ONDANSETRON 4 MG/2 ML VIAL IV PRN (13:36)
[2020-06-23] MEDS ORDERED: NITROGLYCERIN SL 0.4 MG TABLET SL PRN (14:41)
[2020-06-23] MEDS ORDERED: ROSUVASTATIN 20 MG TABLET PO SCH (21:00)
[2020-06-24 05:48] LABS: Basophils % 0.9 % (0.0-0.8); Eosinophils # 0.1 10*3/uL (0.0-0.87); Eosinophils % 2.9 % (0.00-10.9); Hematocrit 35.2 VOL% (42.0-52.0); Hemoglobin 11.8 GM/DL (14.0-18.0); Immature Granulocytes % 0.5 %; Immature Granulocytes Absolute 0.02 #; Lymphocytes # 1.7 10*3/uL (1.4-4.0); Lymphocytes % 37.6 % (21.2-54.2); Mean Corpuscular HGB Conc 33.5 GM/DL (32-36); Mean Corpuscular Volume 101.7 FL (87-102); Mean Platelet Volume 10.7 FL (9.6-12.0); Monocytes % 14.4 % (1.7-12.7); Neutrophils % 43.7 % (38.7-73.9); Platelet Count 142 T/CUMM (130-400); Red Blood Count 3.46 MC/CUMM (3.8-5.5); Red Cell Distribution Width 14.1 % (9.3-17.3); White Blood Count 4.4 T/CUMM (4-12)
[2020-06-24 06:17] LABS: Albumin 3.8 G/DL (3.4-5.0); Bilirubin,Total 0.4 MG/DL (0.2-1.0); Calcium 8.5 MG/DL (8.5-10.1); Osmolality,Calculated 275.2 MOS/KG (273-304); Total Protein 8.5 G/DL (6.4-8.3)
[2020-06-24 08:17] VITALS: BP 88/50
[2020-06-24] MEDS ORDERED: ASPIRIN EC 81 MG TABLET PO SCH (09:00)
[2020-06-24] MEDS ORDERED: CLOPIDOGREL 75 MG TABLET PO SCH (09:00)
== END 2020-06-24 12:32 | disposition home or self-care (01) ==
LOC: N.EDINP 11:41 → N.ED 11:41 → N.TELES 14:26
PROVIDERS: ADMIT Internal Medicine; ATTEND Internal Medicine

== ENCOUNTER 2020-07-10 16:14 | Inpatient (IN) ==
[2020-07-10 17:16] LABS: Basophils % 0.5 % (0.0-0.8); Mean Platelet Volume 10.5 FL (9.6-12.0)
[2020-07-10 17:21] LABS: Calcium 8.5 MG/DL (8.5-10.1); Osmolality,Calculated 280.4 MOS/KG (273-304)
[2020-07-10 17:22] LABS: Eosinophils # 0.2 10*3/uL (0.0-0.87); Eosinophils % 1.9 % (0.00-10.9); Hematocrit 28.5 VOL% (42.0-52.0); Hemoglobin 9.6 GM/DL (14.0-18.0); Immature Granulocytes % 0.6 %; Immature Granulocytes Absolute 0.05 #; Lymphocytes # 1.9 10*3/uL (1.4-4.0); Lymphocytes % 23.8 % (21.2-54.2); Mean Corpuscular HGB Conc 33.7 GM/DL (32-36); Mean Corpuscular Volume 101.4 FL (87-102); Neutrophils % 58.2 % (38.7-73.9); Platelet Count 131 T/CUMM (130-400); Red Blood Count 2.81 MC/CUMM (3.8-5.5); Red Cell Distribution Width 14.3 % (9.3-17.3); White Blood Count 7.8 T/CUMM (4-12)
[2020-07-10] MEDS ORDERED: ONDANSETRON 4 MG/2 ML VIAL IV PRN (19:38)
[2020-07-10 20:04] LABS: Thyroid Stimulating Hormone 4.25 uIU/ml (0.358-3.74)
[2020-07-11] MEDS: carvediloL 25 MG TABLET PO SCH ×2 (00:30→09:28)
[2020-07-11] MEDS: traZODone 50 MG TABLET PO SCH ×2 (00:59→20:46)
[2020-07-11] MEDS: CINACALCET 30 MG TABLET PO SCH ×2 (00:59→20:46)
[2020-07-11] MEDS: HEPARIN 5,000 UNIT/1 ML VIAL SUBCUT SCH ×3 (01:01→20:47)
[2020-07-11 06:27] LABS: Basophils % 0.5 % (0.0-0.8); Eosinophils # 0.2 10*3/uL (0.0-0.87); Eosinophils % 2.3 % (0.00-10.9); Hematocrit 29.2 VOL% (42.0-52.0); Hemoglobin 9.5 GM/DL (14.0-18.0); Immature Granulocytes % 0.5 %; Immature Granulocytes Absolute 0.04 #; Lymphocytes # 1.8 10*3/uL (1.4-4.0); Lymphocytes % 23.6 % (21.2-54.2); Mean Corpuscular HGB Conc 32.5 GM/DL (32-36); Mean Corpuscular Volume 102.5 FL (87-102); Mean Platelet Volume 10.6 FL (9.6-12.0); Monocytes % 16.7 % (1.7-12.7); Neutrophils % 56.4 % (38.7-73.9); Platelet Count 127 T/CUMM (130-400); Red Blood Count 2.85 MC/CUMM (3.8-5.5); Red Cell Distribution Width 14.5 % (9.3-17.3); White Blood Count 7.5 T/CUMM (4-12)
[2020-07-11 06:50] LABS: Albumin 3.1 G/DL (3.4-5.0); Bilirubin,Total 0.9 MG/DL (0.2-1.0); Calcium 8.5 MG/DL (8.5-10.1); Osmolality,Calculated 278.7 MOS/KG (273-304)
[2020-07-11 06:52] LABS: Risk Ratio 4.64; VLDL CHOLESTEROL 39.8 MG/DL
[2020-07-11] MEDS: ASPIRIN EC 81 MG TABLET PO SCH (09:16)
[2020-07-11] MEDS: CLOPIDOGREL 75 MG TABLET PO SCH (09:16)
[2020-07-11] MEDS: PANTOPRAZOLE 40 MG TABLET PO SCH (09:16)
[2020-07-11] MEDS: ACETAMINOPHEN 325 MG TABLET PO PRN (09:17)
[2020-07-11] MEDS: CALCIUM ACETATE 667 MG CAPSULE PO SCH ×3 (09:18→17:26)
[2020-07-11] MEDS: FLUoxetine 20 MG CAPSULE PO SCH (09:18)
[2020-07-11 10:04] LABS: Lymphocytes 24 % (20-55); Segmented Neutrophils 63 % (50-85); Total Cells Counted 100
[2020-07-11 10:05] LABS: Platelet Estimate Adequate
[2020-07-11 10:06] LABS: Polychromasia Slight
[2020-07-11] MEDS ORDERED: BENZONATATE 100 MG CAPSULE PO PRN (11:06)
[2020-07-11] MEDS ORDERED: EPOETIN ALFA-EPBX 2,000 UNIT/ML VIAL IV PRN (11:51)
[2020-07-11] MEDS: GABAPENTIN 100 MG CAPSULE PO SCH ×3 (14:14→20:46)
[2020-07-11] MEDS ORDERED: carvediloL 6.25 MG TABLET PO SCH (14:56)
[2020-07-11] MEDS ORDERED: SODIUM CHLORIDE 0.9% 250 ML IV ONE (14:59)
[2020-07-11] MEDS ORDERED: SODIUM CHLORIDE 0.9% 500 ML IV ONE (16:33)
[2020-07-12 05:47] LABS: Basophils % 0.6 % (0.0-0.8); Eosinophils # 0.2 10*3/uL (0.0-0.87); Eosinophils % 3.3 % (0.00-10.9); Hematocrit 26.5 VOL% (42.0-52.0); Hemoglobin 8.9 GM/DL (14.0-18.0); Immature Granulocytes % 0.6 %; Immature Granulocytes Absolute 0.04 #; Lymphocytes # 1.5 10*3/uL (1.4-4.0); Lymphocytes % 23.3 % (21.2-54.2); Mean Corpuscular HGB Conc 33.6 GM/DL (32-36); Mean Corpuscular Volume 100.8 FL (87-102); Mean Platelet Volume 10.8 FL (9.6-12.0); Monocytes % 12.5 % (1.7-12.7); Neutrophils % 59.7 % (38.7-73.9); Platelet Count 112 T/CUMM (130-400); Red Blood Count 2.63 MC/CUMM (3.8-5.5); Red Cell Distribution Width 14.3 % (9.3-17.3); White Blood Count 6.6 T/CUMM (4-12)
[2020-07-12 06:05] LABS: Calcium 7.6 MG/DL (8.5-10.1); Osmolality,Calculated 276.9 MOS/KG (273-304)
[2020-07-12] MEDS: CLOPIDOGREL 75 MG TABLET PO SCH (08:55)
[2020-07-12] MEDS: HEPARIN 5,000 UNIT/1 ML VIAL SUBCUT SCH ×2 (08:55→21:13)
[2020-07-12] MEDS: FLUoxetine 20 MG CAPSULE PO SCH (08:55)
[2020-07-12] MEDS: CALCIUM ACETATE 667 MG CAPSULE PO SCH ×3 (08:55→15:30)
[2020-07-12] MEDS: PANTOPRAZOLE 40 MG TABLET PO SCH (08:55)
[2020-07-12] MEDS: GABAPENTIN 100 MG CAPSULE PO SCH ×3 (08:55→21:13)
[2020-07-12] MEDS: ASPIRIN EC 81 MG TABLET PO SCH (08:55)
[2020-07-12] MEDS: ACETAMINOPHEN 325 MG TABLET PO PRN (08:58)
[2020-07-12] MEDS ORDERED: Sacubitril-Valsartan [Entresto] 1 TABLET PO SCH (09:00)
[2020-07-12] MEDS: METOPROLOL SUCCINATE XL 25 MG TABLET PO SCH ×2 (14:00→21:23)
[2020-07-12] MEDS: traZODone 50 MG TABLET PO SCH (21:13)
[2020-07-12] MEDS: CINACALCET 30 MG TABLET PO SCH (21:13)
[2020-07-13 05:53] LABS: Basophils % 0.6 % (0.0-0.8); Eosinophils # 0.2 10*3/uL (0.0-0.87); Eosinophils % 2.7 % (0.00-10.9); Hematocrit 29.1 VOL% (42.0-52.0); Hemoglobin 9.5 GM/DL (14.0-18.0); Immature Granulocytes % 0.8 %; Immature Granulocytes Absolute 0.06 #; Lymphocytes # 1.8 10*3/uL (1.4-4.0); Lymphocytes % 25.3 % (21.2-54.2); Mean Corpuscular HGB Conc 32.6 GM/DL (32-36); Mean Corpuscular Volume 102.8 FL (87-102); Mean Platelet Volume 10.3 FL (9.6-12.0); Monocytes % 14.5 % (1.7-12.7); Neutrophils % 56.1 % (38.7-73.9); Platelet Count 144 T/CUMM (130-400); Red Blood Count 2.83 MC/CUMM (3.8-5.5); Red Cell Distribution Width 14.4 % (9.3-17.3); White Blood Count 7.2 T/CUMM (4-12)
[2020-07-13 06:16] LABS: Calcium 7.9 MG/DL (8.5-10.1); Osmolality,Calculated 276.7 MOS/KG (273-304)
[2020-07-13] MEDS: FLUoxetine 20 MG CAPSULE PO SCH (09:07)
[2020-07-13] MEDS: CLOPIDOGREL 75 MG TABLET PO SCH (09:07)
[2020-07-13] MEDS: CALCIUM ACETATE 667 MG CAPSULE PO SCH ×3 (09:08→15:42)
[2020-07-13] MEDS: GABAPENTIN 100 MG CAPSULE PO SCH ×3 (09:08→21:14)
[2020-07-13] MEDS: ASPIRIN EC 81 MG TABLET PO SCH (09:08)
[2020-07-13] MEDS: PANTOPRAZOLE 40 MG TABLET PO SCH (09:08)
[2020-07-13] MEDS: HEPARIN 5,000 UNIT/1 ML VIAL SUBCUT SCH ×2 (09:08→21:14)
[2020-07-13] MEDS: METOPROLOL SUCCINATE XL 25 MG TABLET PO SCH (09:39)
[2020-07-13] MEDS: ACETAMINOPHEN 325 MG TABLET PO PRN (11:58)
[2020-07-13] MEDS: CINACALCET 30 MG TABLET PO SCH (21:14)
[2020-07-13] MEDS: traZODone 50 MG TABLET PO SCH (21:14)
[2020-07-14 08:04] VITALS: BP 105/55
[2020-07-14] MEDS: HEPARIN 5,000 UNIT/1 ML VIAL SUBCUT SCH (08:29)
[2020-07-14] MEDS: CALCIUM ACETATE 667 MG CAPSULE PO SCH ×2 (08:29→13:27)
[2020-07-14] MEDS ORDERED: SACUBITRIL/VALSARTAN 49-51 MG TABLET PO SCH (10:20)
[2020-07-14] MEDS: ACETAMINOPHEN 325 MG TABLET PO PRN (10:50)
[2020-07-14] MEDS: CLOPIDOGREL 75 MG TABLET PO SCH (13:26)
[2020-07-14] MEDS: ASPIRIN EC 81 MG TABLET PO SCH (13:26)
[2020-07-14] MEDS: GABAPENTIN 100 MG CAPSULE PO SCH (13:26)
[2020-07-14] MEDS: FLUoxetine 20 MG CAPSULE PO SCH (13:27)
[2020-07-14] MEDS: PANTOPRAZOLE 40 MG TABLET PO SCH (13:27)
== END 2020-07-14 14:07 | disposition home health service (06) | DRG 312 ==
LOC: EDBD → EDUNIT# → N.ED 16:14 → N.EDINP 16:14 → SUATTDRO 19:37 → N.TELES 23:28
PROVIDERS: ADMIT Internal Medicine; ATTEND Internal Medicine

== ENCOUNTER 2020-09-27 01:46 | Inpatient (IN) ==
[2020-09-27 02:45] LABS: Eosinophils # 0.1 10*3/uL (0.0-0.87); Eosinophils % 3.1 % (0.00-10.9); Hematocrit 28.9 VOL% (42.0-52.0); Hemoglobin 9.2 GM/DL (14.0-18.0); Immature Granulocytes % 0.7 %; Immature Granulocytes Absolute 0.03 #; Lymphocytes # 1.1 10*3/uL (1.4-4.0); Lymphocytes % 27.4 % (21.2-54.2); Mean Corpuscular HGB Conc 31.8 GM/DL (32-36); Mean Platelet Volume 10.1 FL (9.6-12.0); Monocytes % 7.5 % (1.7-12.7); Neutrophils % 60.3 % (38.7-73.9); Platelet Count 180 T/CUMM (130-400); Red Blood Count 2.89 MC/CUMM (3.8-5.5); Red Cell Distribution Width 15.5 % (9.3-17.3); White Blood Count 4.1 T/CUMM (4-12)
[2020-09-27 03:14] LABS: Bilirubin,Total 0.9 MG/DL (0.2-1.0); Calcium 6.8 MG/DL (8.5-10.1); Ferritin 1161.8 ng/ml (26-388); Osmolality,Calculated 292.5 MOS/KG (273-304); Total Protein 6.9 G/DL (6.4-8.3)
[2020-09-27] MEDS ORDERED: NITROGLYCERIN 2% OINT 1 INCH/GM PACK TOP STA (03:46)
[2020-09-27] MEDS ORDERED: DEXTROSE 50% 25 GM/50 ML VIAL IV PRN (04:10)
[2020-09-27] MEDS ORDERED: GLUCAGON 1 MG VIAL IM PRN (04:10)
[2020-09-27] MEDS ORDERED: ACETAMINOPHEN 325 MG TABLET PO PRN (04:10)
[2020-09-27] MEDS: cefTRIAXone 1,000 MG in SYRINGE 1 EACH IV SCH (06:02)
[2020-09-27] MEDS ORDERED: ENOXAPARIN 30 MG/0.3 ML SYRINGE SUBCUT SCH (09:00)
[2020-09-27] MEDS: ASCORBIC ACID 500 MG TABLET PO SCH (09:21)
[2020-09-27] MEDS: DEXAMETHASONE 10 MG/1 ML VIAL IV SCH (09:21)
[2020-09-27] MEDS: CHOLECALCIFEROL 1,000 UNIT TABLET PO SCH (09:21)
[2020-09-27] MEDS: ZINC SULFATE 220 MG CAPSULE PO SCH (09:22)
[2020-09-27] MEDS: CALCIUM ACETATE 667 MG CAPSULE PO SCH ×2 (12:17→18:45)
[2020-09-27] MEDS: carvediloL 3.125 MG TABLET PO SCH (21:35)
[2020-09-27] MEDS: CINACALCET 30 MG TABLET PO SCH (21:35)
[2020-09-27] MEDS: APIXABAN 5 MG TABLET PO SCH (21:35)
[2020-09-27] MEDS: SACUBITRIL/VALSARTAN 49-51 MG TABLET PO SCH (21:36)
[2020-09-28] MEDS: cefTRIAXone 1,000 MG in SYRINGE 1 EACH IV SCH (04:30)
[2020-09-28 06:35] LABS: Basophils % 0.3 % (0.0-0.8); Eosinophils % 0.2 % (0.00-10.9); Hematocrit 29.2 VOL% (42.0-52.0); Hemoglobin 9.6 GM/DL (14.0-18.0); Immature Granulocytes % 0.3 %; Immature Granulocytes Absolute 0.02 #; Lymphocytes # 0.7 10*3/uL (1.4-4.0); Lymphocytes % 12.7 % (21.2-54.2); Mean Corpuscular HGB Conc 32.9 GM/DL (32-36); Mean Platelet Volume 10.5 FL (9.6-12.0); Monocytes % 9.1 % (1.7-12.7); Neutrophils % 77.4 % (38.7-73.9); Platelet Count 172 T/CUMM (130-400); Red Blood Count 2.92 MC/CUMM (3.8-5.5); Red Cell Distribution Width 15.3 % (9.3-17.3); White Blood Count 5.8 T/CUMM (4-12)
[2020-09-28 06:44] LABS: INR 1.2
[2020-09-28 07:00] LABS: Bilirubin,Total 0.6 MG/DL (0.2-1.0); Calcium 7.2 MG/DL (8.5-10.1); Ferritin 1144.2 ng/ml (26-388); Osmolality,Calculated 285.8 MOS/KG (273-304); Total Protein 6.9 G/DL (6.4-8.3)
[2020-09-28 07:12] LABS: Calcium 7.4 MG/DL (8.5-10.1); Osmolality,Calculated 286.8 MOS/KG (273-304)
[2020-09-28 07:54] LABS: HIV Antigen/Antibody Result Nonreactive (Nonreactive)
[2020-09-28] MEDS: ASCORBIC ACID 500 MG TABLET PO SCH (08:50)
[2020-09-28] MEDS: CALCIUM ACETATE 667 MG CAPSULE PO SCH ×3 (08:50→16:43)
[2020-09-28] MEDS: carvediloL 3.125 MG TABLET PO SCH ×2 (08:50→21:14)
[2020-09-28] MEDS: APIXABAN 5 MG TABLET PO SCH ×2 (08:50→21:14)
[2020-09-28] MEDS: SACUBITRIL/VALSARTAN 49-51 MG TABLET PO SCH ×2 (08:50→21:14)
[2020-09-28] MEDS: CLOPIDOGREL 75 MG TABLET PO SCH (08:50)
[2020-09-28] MEDS: CHOLECALCIFEROL 1,000 UNIT TABLET PO SCH (08:50)
[2020-09-28] MEDS: FLUoxetine 20 MG CAPSULE PO SCH (08:50)
[2020-09-28] MEDS: DEXAMETHASONE 10 MG/1 ML VIAL IV SCH (09:13)
[2020-09-28] MEDS: CINACALCET 30 MG TABLET PO SCH (21:15)
[2020-09-29] MEDS: cefTRIAXone 1,000 MG in SYRINGE 1 EACH IV SCH (05:35)
[2020-09-29] MEDS: CALCIUM ACETATE 667 MG CAPSULE PO SCH ×3 (09:33→17:31)
[2020-09-29] MEDS: ASCORBIC ACID 500 MG TABLET PO SCH (09:34)
[2020-09-29] MEDS: APIXABAN 5 MG TABLET PO SCH (09:34)
[2020-09-29] MEDS: CHOLECALCIFEROL 1,000 UNIT TABLET PO SCH (09:34)
[2020-09-29] MEDS: carvediloL 3.125 MG TABLET PO SCH (09:34)
[2020-09-29] MEDS: SACUBITRIL/VALSARTAN 49-51 MG TABLET PO SCH (09:34)
[2020-09-29] MEDS: FLUoxetine 20 MG CAPSULE PO SCH (09:34)
[2020-09-29] MEDS: ZINC SULFATE 220 MG CAPSULE PO SCH (09:34)
[2020-09-29] MEDS: DEXAMETHASONE 10 MG/1 ML VIAL IV SCH (09:34)
[2020-09-29] MEDS: CLOPIDOGREL 75 MG TABLET PO SCH (09:34)
[2020-09-29 17:48] VITALS: BP 140/82
[2020-09-30] MEDS ORDERED: AZITHROMYCIN 250 MG TABLET PO SCH (09:00)
== END 2020-09-29 18:50 | disposition home or self-care (01) | DRG 193 ==
LOC: EDBD → EDUNIT# → N.ED 01:46 → SUATTDRO 04:10 → N.EDINP 04:10 → N.2E 05:39
PROVIDERS: ADMIT Internal Medicine; ATTEND Internal Medicine

== ENCOUNTER 2021-04-04 12:24 | Inpatient (IN) ==
[2021-04-04] MEDS ORDERED: VANCOMYCIN INJ 1,250 MG in SODIUM CHLORIDE 0.9% 250 ML IV STA (12:54)
[2021-04-04] MEDS ORDERED: cefTRIAXone 1,000 MG in SODIUM CHLORIDE 0.9% 100 ML IV STA (12:54)
[2021-04-04 14:42] LABS: Basophils % 0.1 % (0.0-0.8); Hematocrit 28.9 VOL% (42.0-52.0); Hemoglobin 9.7 GM/DL (14.0-18.0); Immature Granulocytes % 0.8 %; Immature Granulocytes Absolute 0.06 #; Lymphocytes # 0.4 10*3/uL (1.4-4.0); Lymphocytes % 4.9 % (21.2-54.2); Mean Corpuscular HGB Conc 33.6 GM/DL (32-36); Mean Corpuscular Volume 97.3 FL (87-102); Monocytes % 8.1 % (1.7-12.7); Neutrophils % 86.1 % (38.7-73.9); Platelet Count 102 T/CUMM (130-400); Red Blood Count 2.97 MC/CUMM (3.8-5.5); Red Cell Distribution Width 17.1 % (9.3-17.3); White Blood Count 7.1 T/CUMM (4-12)
[2021-04-04 15:06] LABS: Alanine Aminotransferase 23 U/L (16-61); Albumin 3.6 G/DL (3.4-5.0); Alkaline Phosphatase 66 U/L (45-117); Aspartate Amino Transferase 24 U/L (0-37); Blood Urea Nitrogen 55 MG/DL (7-18); Carbon Dioxide 30 MMOL/L (21-32); Estimated Glom Filtration Rate 6 ML/MIN; Glucose 104 MG/DL (74-106); Osmolality,Calculated 274.8 MOS/KG (273-304); Potassium 4.4 MMOL/L (3.5-5.1); Sodium 130 MMOL/L (136-145); Total Protein 8.6 G/DL (6.4-8.2)
[2021-04-04 15:59] LABS: Lymphocytes 6 % (20-55); Segmented Neutrophils 90 % (50-85); Total Cells Counted 100
[2021-04-04 16:00] LABS: Anisocytosis 2+; Hypochromasia Slight; Macrocytosis 1+; Platelet Estimate Decreased
[2021-04-04] MEDS ORDERED: ACETAMINOPHEN 500 MG TABLET PO STA (16:46)
[2021-04-04] MEDS ORDERED: GLUCAGON 1 MG VIAL IM PRN (17:11)
[2021-04-04] MEDS ORDERED: hydrALAZINE 20 MG/1 ML VIAL IV PRN (17:11)
[2021-04-04] MEDS ORDERED: ACETAMINOPHEN 325 MG TABLET PO PRN (17:11)
[2021-04-04] MEDS ORDERED: DOCUSATE SODIUM 100 MG CAPSULE PO PRN (17:11)
[2021-04-04] MEDS ORDERED: DEXTROSE 50% 25 GM/50 ML VIAL IV PRN (17:11)
[2021-04-04] MEDS ORDERED: ONDANSETRON 4 MG/2 ML VIAL IV PRN (17:11)
[2021-04-04] MEDS ORDERED: HEPARIN 5,000 UNIT/1 ML VIAL SUBCUT SCH (17:30)
[2021-04-04] MEDS ORDERED: VANCOMYCIN INJ 1,250 MG in SODIUM CHLORIDE 0.9% 250 ML IV PRN (17:38)
[2021-04-04] MEDS: PIPERACILLIN/TAZOBACTAM 3,375 MG in SODIUM CHLORIDE 0.9% 100 ML IV SCH (18:22)
[2021-04-04] MEDS ORDERED: VANCOMYCIN INJ 1,000 MG in SODIUM CHLORIDE 0.9% 250 ML IV ONE (20:00)
[2021-04-04] MEDS: carvediloL 12.5 MG TABLET PO SCH (22:31)
[2021-04-04] MEDS: APIXABAN 2.5 MG TABLET PO SCH (22:31)
[2021-04-04] MEDS: ATORVASTATIN 40 MG TABLET PO SCH (22:31)
[2021-04-04] MEDS: SACUBITRIL/VALSARTAN 49-51 MG TABLET PO SCH (22:31)
[2021-04-05] MEDS: PIPERACILLIN/TAZOBACTAM 3,375 MG in SODIUM CHLORIDE 0.9% 100 ML IV SCH (05:54)
[2021-04-05 06:53] LABS: Basophils % 0.2 % (0.0-0.8); Hematocrit 24.7 VOL% (42.0-52.0); Hemoglobin 8.4 GM/DL (14.0-18.0); Immature Granulocytes % 0.5 %; Immature Granulocytes Absolute 0.03 #; Lymphocytes # 0.5 10*3/uL (1.4-4.0); Lymphocytes % 8.9 % (21.2-54.2); Mean Corpuscular Volume 96.5 FL (87-102); Mean Platelet Volume 10.9 FL (9.6-12.0); Monocytes % 10.9 % (1.7-12.7); Neutrophils % 79.5 % (38.7-73.9); Red Blood Count 2.56 MC/CUMM (3.8-5.5); Red Cell Distribution Width 17.4 % (9.3-17.3); White Blood Count 6.1 T/CUMM (4-12)
[2021-04-05 06:56] LABS: Platelet Count 87 T/CUMM (130-400)
[2021-04-05 07:11] LABS: Hypochromasia 1+; Microcytosis 1+; Platelet Estimate Decreased
[2021-04-05 07:32] LABS: Calcium 8.5 MG/DL (8.5-10.1); Osmolality,Calculated 284.5 MOS/KG (273-304); Potassium 4.1 MMOL/L (3.5-5.1)
[2021-04-05] MEDS: cefTRIAXone 1,000 MG in SODIUM CHLORIDE 0.9% 100 ML IV SCH (08:22)
[2021-04-05] MEDS: FLUoxetine 20 MG CAPSULE PO SCH (08:22)
[2021-04-05] MEDS: SACUBITRIL/VALSARTAN 49-51 MG TABLET PO SCH ×2 (08:22→22:05)
[2021-04-05] MEDS: CLOPIDOGREL 75 MG TABLET PO SCH (08:23)
[2021-04-05] MEDS: APIXABAN 2.5 MG TABLET PO SCH ×2 (08:23→22:05)
[2021-04-05] MEDS: carvediloL 12.5 MG TABLET PO SCH ×2 (08:24→22:05)
[2021-04-05] MEDS: CALCIUM ACETATE 667 MG CAPSULE PO SCH ×3 (08:25→16:51)
[2021-04-05] MEDS: ATORVASTATIN 40 MG TABLET PO SCH (22:05)
[2021-04-06] MEDS: VANCOMYCIN 50 MG/ML 60 ML/BOTTLE PO SCH ×4 (00:35→18:21)
[2021-04-06 07:48] LABS: Basophils % 0.4 % (0.0-0.8); Eosinophils # 0.1 10*3/uL (0.0-0.87); Eosinophils % 1.1 % (0.00-10.9); Hematocrit 25.3 VOL% (42.0-52.0); Hemoglobin 8.2 GM/DL (14.0-18.0); Immature Granulocytes % 0.7 %; Immature Granulocytes Absolute 0.04 #; Lymphocytes % 17.9 % (21.2-54.2); Mean Corpuscular HGB Conc 32.4 GM/DL (32-36); Mean Corpuscular Volume 98.1 FL (87-102); Mean Platelet Volume 11.5 FL (9.6-12.0); Monocytes % 20.9 % (1.7-12.7); Platelet Count 96 T/CUMM (130-400); Red Blood Count 2.58 MC/CUMM (3.8-5.5); Red Cell Distribution Width 17.1 % (9.3-17.3); White Blood Count 5.7 T/CUMM (4-12)
[2021-04-06 08:10] LABS: Eosinophils 2 % (0-10); Hypochromasia 1+; Lymphocytes 20 % (20-55); Microcytosis 1+; Platelet Estimate Decreased; Segmented Neutrophils 62 % (50-85); Total Cells Counted 100
[2021-04-06 08:12] LABS: Calcium 9.4 MG/DL (8.5-10.1); Osmolality,Calculated 285.7 MOS/KG (273-304); Potassium 3.7 MMOL/L (3.5-5.1)
[2021-04-06] MEDS: cefTRIAXone 1,000 MG in SODIUM CHLORIDE 0.9% 100 ML IV SCH (09:36)
[2021-04-06] MEDS: APIXABAN 2.5 MG TABLET PO SCH ×2 (09:40→21:46)
[2021-04-06] MEDS: carvediloL 12.5 MG TABLET PO SCH ×2 (09:40→21:46)
[2021-04-06] MEDS: CLOPIDOGREL 75 MG TABLET PO SCH (09:40)
[2021-04-06] MEDS: CALCIUM ACETATE 667 MG CAPSULE PO SCH ×3 (09:40→18:21)
[2021-04-06] MEDS: FLUoxetine 20 MG CAPSULE PO SCH (09:40)
[2021-04-06] MEDS: SACUBITRIL/VALSARTAN 49-51 MG TABLET PO SCH ×2 (09:40→21:46)
[2021-04-06] MEDS ORDERED: VANCOMYCIN INJ 750 MG in SODIUM CHLORIDE 0.9% 250 ML IV PRN (11:00)
[2021-04-06] MEDS ORDERED: VANCOMYCIN INJ 750 MG in SODIUM CHLORIDE 0.9% 250 ML IV ONE (17:00)
[2021-04-06] MEDS: ATORVASTATIN 40 MG TABLET PO SCH (21:46)
[2021-04-07] MEDS: VANCOMYCIN 50 MG/ML 60 ML/BOTTLE PO SCH ×4 (00:16→17:22)
[2021-04-07 08:03] LABS: Basophils % 0.2 % (0.0-0.8); Eosinophils # 0.1 10*3/uL (0.0-0.87); Eosinophils % 1.9 % (0.00-10.9); Hematocrit 25.2 VOL% (42.0-52.0); Hemoglobin 8.2 GM/DL (14.0-18.0); Immature Granulocytes % 0.9 %; Immature Granulocytes Absolute 0.04 #; Lymphocytes # 0.8 10*3/uL (1.4-4.0); Lymphocytes % 18.8 % (21.2-54.2); Mean Corpuscular HGB Conc 32.5 GM/DL (32-36); Mean Corpuscular Volume 97.7 FL (87-102); Monocytes % 21.8 % (1.7-12.7); Neutrophils % 56.4 % (38.7-73.9); Platelet Count 97 T/CUMM (130-400); Red Blood Count 2.58 MC/CUMM (3.8-5.5); Red Cell Distribution Width 16.8 % (9.3-17.3); White Blood Count 4.3 T/CUMM (4-12)
[2021-04-07 08:23] LABS: Eosinophils 4 % (0-10); Hypochromasia 1+; Lymphocytes 15 % (20-55); Microcytosis 1+; Ovalocytes Slight; Platelet Estimate Decreased; Segmented Neutrophils 66 % (50-85); Total Cells Counted 100
[2021-04-07 08:29] LABS: Calcium 8.8 MG/DL (8.5-10.1); Osmolality,Calculated 281.1 MOS/KG (273-304); Potassium 3.8 MMOL/L (3.5-5.1)
[2021-04-07] MEDS: CALCIUM ACETATE 667 MG CAPSULE PO SCH ×3 (08:32→17:22)
[2021-04-07] MEDS: carvediloL 12.5 MG TABLET PO SCH ×2 (08:32→21:22)
[2021-04-07] MEDS: SACUBITRIL/VALSARTAN 49-51 MG TABLET PO SCH ×2 (08:33→21:22)
[2021-04-07] MEDS: APIXABAN 2.5 MG TABLET PO SCH ×2 (08:33→21:18)
[2021-04-07] MEDS: FLUoxetine 20 MG CAPSULE PO SCH (08:33)
[2021-04-07] MEDS: CLOPIDOGREL 75 MG TABLET PO SCH (08:33)
[2021-04-07] MEDS ORDERED: VANCOMYCIN INJ 750 MG in SODIUM CHLORIDE 0.9% 250 ML IV ONE (11:00)
[2021-04-07] MEDS ORDERED: SODIUM CHLORIDE 0.9% 250 ML IV ONE (11:49)
[2021-04-07] MEDS ORDERED: SODIUM CHLORIDE 0.9% 500 ML IV SCH (14:30)
[2021-04-07] MEDS: ATORVASTATIN 40 MG TABLET PO SCH (21:18)
[2021-04-08] MEDS: VANCOMYCIN 50 MG/ML 60 ML/BOTTLE PO SCH ×5 (00:10→23:59)
[2021-04-08 06:41] LABS: Basophils % 0.2 % (0.0-0.8); Eosinophils # 0.1 10*3/uL (0.0-0.87); Eosinophils % 2.3 % (0.00-10.9); Hematocrit 23.3 VOL% (42.0-52.0); Hemoglobin 7.6 GM/DL (14.0-18.0); Immature Granulocytes % 0.7 %; Immature Granulocytes Absolute 0.03 #; Lymphocytes % 22.8 % (21.2-54.2); Mean Corpuscular HGB Conc 32.6 GM/DL (32-36); Mean Corpuscular Volume 98.7 FL (87-102); Mean Platelet Volume 11.5 FL (9.6-12.0); Monocytes % 20.3 % (1.7-12.7); Neutrophils % 53.7 % (38.7-73.9); Platelet Count 93 T/CUMM (130-400); Red Blood Count 2.36 MC/CUMM (3.8-5.5); Red Cell Distribution Width 16.7 % (9.3-17.3); White Blood Count 4.3 T/CUMM (4-12)
[2021-04-08 07:07] LABS: Calcium 8.6 MG/DL (8.5-10.1); Eosinophils 1 % (0-10); Hypochromasia 2+; Lymphocytes 21 % (20-55); Microcytosis 1+; Osmolality,Calculated 281.4 MOS/KG (273-304); Platelet Estimate Decreased; Potassium 3.8 MMOL/L (3.5-5.1); Segmented Neutrophils 59 % (50-85); Total Cells Counted 100
[2021-04-08] MEDS: FLUoxetine 20 MG CAPSULE PO SCH (08:23)
[2021-04-08] MEDS: carvediloL 12.5 MG TABLET PO SCH ×2 (08:23→21:06)
[2021-04-08] MEDS: SEVELAMER CARBONATE 800 MG TABLET PO SCH ×3 (08:23→17:18)
[2021-04-08] MEDS: SACUBITRIL/VALSARTAN 49-51 MG TABLET PO SCH ×2 (08:23→21:05)
[2021-04-08] MEDS: CLOPIDOGREL 75 MG TABLET PO SCH (08:24)
[2021-04-08] MEDS: APIXABAN 2.5 MG TABLET PO SCH ×2 (08:25→21:05)
[2021-04-08] MEDS ORDERED: VANCOMYCIN INJ 750 MG in SODIUM CHLORIDE 0.9% 250 ML IV ONE (17:00)
[2021-04-08] MEDS: ATORVASTATIN 40 MG TABLET PO SCH (21:05)
[2021-04-09] MEDS ORDERED: CALCIUM CARBONATE CHEW 500 MG TABLET PO ONE (03:05)
[2021-04-09 05:15] LABS: Basophils % 0.2 % (0.0-0.8); Eosinophils # 0.1 10*3/uL (0.0-0.87); Eosinophils % 2.2 % (0.00-10.9); Hemoglobin 7.3 GM/DL (14.0-18.0); Immature Granulocytes % 0.8 %; Immature Granulocytes Absolute 0.04 #; Lymphocytes # 1.1 10*3/uL (1.4-4.0); Lymphocytes % 20.5 % (21.2-54.2); Mean Corpuscular HGB Conc 31.7 GM/DL (32-36); Mean Corpuscular Volume 99.6 FL (87-102); Mean Platelet Volume 11.4 FL (9.6-12.0); Monocytes % 18.4 % (1.7-12.7); Neutrophils % 57.9 % (38.7-73.9); Platelet Count 124 T/CUMM (130-400); Red Blood Count 2.31 MC/CUMM (3.8-5.5); Red Cell Distribution Width 16.4 % (9.3-17.3); White Blood Count 5.1 T/CUMM (4-12)
[2021-04-09 05:36] LABS: Osmolality,Calculated 275.4 MOS/KG (273-304); Potassium 3.6 MMOL/L (3.5-5.1)
[2021-04-09] MEDS: VANCOMYCIN 50 MG/ML 60 ML/BOTTLE PO SCH ×4 (05:38→23:54)
[2021-04-09 06:11] LABS: Lymphocytes 23 % (20-55); Segmented Neutrophils 62 % (50-85); Total Cells Counted 100
[2021-04-09 06:12] LABS: Atypical Lymphocytes Few; Hypochromasia 1+; Microcytosis 1+; Ovalocytes Slight
[2021-04-09 06:13] LABS: Platelet Estimate Adequate
[2021-04-09] MEDS: CLOPIDOGREL 75 MG TABLET PO SCH (09:50)
[2021-04-09] MEDS: SACUBITRIL/VALSARTAN 49-51 MG TABLET PO SCH ×2 (09:50→20:38)
[2021-04-09] MEDS: FLUoxetine 20 MG CAPSULE PO SCH (09:50)
[2021-04-09] MEDS: carvediloL 12.5 MG TABLET PO SCH ×2 (09:50→20:38)
[2021-04-09] MEDS: SEVELAMER CARBONATE 800 MG TABLET PO SCH ×3 (09:50→17:20)
[2021-04-09] MEDS: APIXABAN 2.5 MG TABLET PO SCH (09:51)
[2021-04-09] MEDS: ATORVASTATIN 40 MG TABLET PO SCH (20:38)
[2021-04-10] MEDS: VANCOMYCIN 50 MG/ML 60 ML/BOTTLE PO SCH ×4 (05:24→23:36)
[2021-04-10 05:27] LABS: Basophils % 0.4 % (0.0-0.8); Eosinophils # 0.2 10*3/uL (0.0-0.87); Eosinophils % 2.9 % (0.00-10.9); Hemoglobin 7.3 GM/DL (14.0-18.0); Immature Granulocytes % 1.5 %; Immature Granulocytes Absolute 0.08 #; Lymphocytes # 1.2 10*3/uL (1.4-4.0); Lymphocytes % 23.9 % (21.2-54.2); Mean Corpuscular HGB Conc 33.2 GM/DL (32-36); Mean Corpuscular Volume 97.8 FL (87-102); Mean Platelet Volume 11.1 FL (9.6-12.0); Monocytes % 13.9 % (1.7-12.7); Neutrophils % 57.4 % (38.7-73.9); Platelet Count 127 T/CUMM (130-400); Red Blood Count 2.25 MC/CUMM (3.8-5.5); Red Cell Distribution Width 16.5 % (9.3-17.3); White Blood Count 5.2 T/CUMM (4-12)
[2021-04-10 05:52] LABS: Potassium 3.6 MMOL/L (3.5-5.1)
[2021-04-10 06:00] LABS: Atypical Lymphocytes Few; Eosinophils 2 % (0-10); Hypochromasia Slight; Lymphocytes 25 % (20-55); Microcytosis 1+; Segmented Neutrophils 59 % (50-85); Total Cells Counted 100
[2021-04-10 06:01] LABS: Ovalocytes Slight; Platelet Estimate Adequate
[2021-04-10] MEDS: SACUBITRIL/VALSARTAN 49-51 MG TABLET PO SCH ×2 (08:07→20:26)
[2021-04-10] MEDS: SEVELAMER CARBONATE 800 MG TABLET PO SCH ×3 (08:07→18:17)
[2021-04-10] MEDS: ASPIRIN EC 81 MG TABLET PO SCH (08:07)
[2021-04-10] MEDS: carvediloL 12.5 MG TABLET PO SCH ×2 (08:07→20:26)
[2021-04-10] MEDS: FLUoxetine 20 MG CAPSULE PO SCH (08:08)
[2021-04-10] MEDS: ATORVASTATIN 40 MG TABLET PO SCH (20:26)
[2021-04-11] MEDS: VANCOMYCIN 50 MG/ML 60 ML/BOTTLE PO SCH ×3 (05:01→18:26)
[2021-04-11 07:58] LABS: Basophils % 0.6 % (0.0-0.8); Eosinophils # 0.2 10*3/uL (0.0-0.87); Eosinophils % 3.4 % (0.00-10.9); Hematocrit 23.8 VOL% (42.0-52.0); Hemoglobin 7.5 GM/DL (14.0-18.0); Immature Granulocytes Absolute 0.16 #; Lymphocytes # 1.4 10*3/uL (1.4-4.0); Lymphocytes % 25.8 % (21.2-54.2); Mean Corpuscular HGB Conc 31.5 GM/DL (32-36); Mean Platelet Volume 10.4 FL (9.6-12.0); Monocytes % 12.3 % (1.7-12.7); Neutrophils % 54.9 % (38.7-73.9); Platelet Count 164 T/CUMM (130-400); Red Blood Count 2.38 MC/CUMM (3.8-5.5); Red Cell Distribution Width 16.5 % (9.3-17.3); White Blood Count 5.3 T/CUMM (4-12)
[2021-04-11] MEDS: SEVELAMER CARBONATE 800 MG TABLET PO SCH ×3 (08:00→18:25)
[2021-04-11 08:28] LABS: Calcium 9.4 MG/DL (8.5-10.1); Osmolality,Calculated 278.4 MOS/KG (273-304)
[2021-04-11] MEDS: SACUBITRIL/VALSARTAN 49-51 MG TABLET PO SCH ×2 (09:00→21:04)
[2021-04-11] MEDS: carvediloL 12.5 MG TABLET PO SCH ×2 (09:00→21:03)
[2021-04-11] MEDS: ASPIRIN EC 81 MG TABLET PO SCH (09:00)
[2021-04-11] MEDS ORDERED: propofoL 200 MG/20 ML VIAL IV ONE (11:44)
[2021-04-11] MEDS ORDERED: LIDOCAINE 2% 5 ML VIAL ONE (11:44)
[2021-04-11] MEDS ORDERED: ETOMIDATE 20 MG/10 ML VIAL IV ONE (11:45)
[2021-04-11] MEDS ORDERED: VANCOMYCIN INJ 500 MG in SODIUM CHLORIDE 0.9% 100 ML IV PRN (12:30)
[2021-04-11] MEDS: FLUoxetine 20 MG CAPSULE PO SCH (13:06)
[2021-04-11] MEDS ORDERED: VANCOMYCIN INJ 500 MG in SODIUM CHLORIDE 0.9% 100 ML IV ONE (17:00)
[2021-04-11] MEDS: ATORVASTATIN 40 MG TABLET PO SCH (21:03)
[2021-04-11] MEDS: APIXABAN 2.5 MG TABLET PO SCH (21:03)
[2021-04-12] MEDS: VANCOMYCIN 50 MG/ML 60 ML/BOTTLE PO SCH ×4 (00:29→17:28)
[2021-04-12 07:39] LABS: Basophils % 0.6 % (0.0-0.8); Eosinophils # 0.2 10*3/uL (0.0-0.87); Eosinophils % 3.8 % (0.00-10.9); Hematocrit 23.1 VOL% (42.0-52.0); Hemoglobin 7.7 GM/DL (14.0-18.0); Immature Granulocytes % 3.3 %; Immature Granulocytes Absolute 0.16 #; Lymphocytes # 1.3 10*3/uL (1.4-4.0); Lymphocytes % 26.9 % (21.2-54.2); Mean Corpuscular HGB Conc 33.3 GM/DL (32-36); Mean Corpuscular Volume 99.1 FL (87-102); Mean Platelet Volume 9.9 FL (9.6-12.0); Monocytes % 15.9 % (1.7-12.7); Neutrophils % 49.5 % (38.7-73.9); Platelet Count 153 T/CUMM (130-400); Red Blood Count 2.33 MC/CUMM (3.8-5.5); Red Cell Distribution Width 16.5 % (9.3-17.3); White Blood Count 4.8 T/CUMM (4-12)
[2021-04-12 07:59] LABS: Eosinophils 5 % (0-10); Hypochromasia 1+; Lymphocytes 18 % (20-55); Microcytosis 1+; Platelet Estimate Adequate; Segmented Neutrophils 62 % (50-85); Total Cells Counted 100
[2021-04-12 08:05] LABS: Calcium 9.3 MG/DL (8.5-10.1); Osmolality,Calculated 279.1 MOS/KG (273-304); Potassium 4.3 MMOL/L (3.5-5.1)
[2021-04-12] MEDS: carvediloL 12.5 MG TABLET PO SCH ×2 (08:24→22:13)
[2021-04-12] MEDS: APIXABAN 2.5 MG TABLET PO SCH ×2 (08:24→22:13)
[2021-04-12] MEDS: FLUoxetine 20 MG CAPSULE PO SCH (08:24)
[2021-04-12] MEDS: CLOPIDOGREL 75 MG TABLET PO SCH (08:24)
[2021-04-12] MEDS: SACUBITRIL/VALSARTAN 49-51 MG TABLET PO SCH ×2 (08:24→22:13)
[2021-04-12] MEDS: SEVELAMER CARBONATE 800 MG TABLET PO SCH ×3 (08:24→17:28)
[2021-04-12] MEDS: ASPIRIN EC 81 MG TABLET PO SCH (08:24)
[2021-04-12] MEDS ORDERED: EPOETIN ALFA-EPBX 10,000 UNIT/ML VIAL SUBCUT SCH (18:00)
[2021-04-12] MEDS: ATORVASTATIN 40 MG TABLET PO SCH (22:13)
[2021-04-13] MEDS: VANCOMYCIN 50 MG/ML 60 ML/BOTTLE PO SCH ×4 (00:11→18:23)
[2021-04-13] MEDS: SEVELAMER CARBONATE 800 MG TABLET PO SCH ×3 (09:32→18:02)
[2021-04-13] MEDS: FLUoxetine 20 MG CAPSULE PO SCH (09:32)
[2021-04-13] MEDS: CLOPIDOGREL 75 MG TABLET PO SCH (09:32)
[2021-04-13] MEDS: APIXABAN 2.5 MG TABLET PO SCH ×2 (09:32→20:35)
[2021-04-13] MEDS: ASPIRIN EC 81 MG TABLET PO SCH (09:32)
[2021-04-13] MEDS: SACUBITRIL/VALSARTAN 49-51 MG TABLET PO SCH ×2 (09:33→20:35)
[2021-04-13] MEDS: carvediloL 12.5 MG TABLET PO SCH ×2 (09:33→20:35)
[2021-04-13] MEDS ORDERED: VANCOMYCIN INJ 500 MG in SODIUM CHLORIDE 0.9% 100 ML IV ONE (17:00)
[2021-04-13] MEDS: ATORVASTATIN 40 MG TABLET PO SCH (20:35)
[2021-04-14] MEDS: VANCOMYCIN 50 MG/ML 60 ML/BOTTLE PO SCH ×4 (00:05→17:09)
[2021-04-14] MEDS: SACUBITRIL/VALSARTAN 49-51 MG TABLET PO SCH ×2 (08:56→22:02)
[2021-04-14] MEDS: carvediloL 12.5 MG TABLET PO SCH ×2 (08:57→22:03)
[2021-04-14] MEDS: CLOPIDOGREL 75 MG TABLET PO SCH (08:57)
[2021-04-14] MEDS: SEVELAMER CARBONATE 800 MG TABLET PO SCH ×3 (08:57→17:09)
[2021-04-14] MEDS: APIXABAN 2.5 MG TABLET PO SCH ×2 (08:57→22:02)
[2021-04-14] MEDS: ASPIRIN EC 81 MG TABLET PO SCH (08:57)
[2021-04-14] MEDS: FLUoxetine 20 MG CAPSULE PO SCH (08:57)
[2021-04-14] MEDS: ATORVASTATIN 40 MG TABLET PO SCH (22:02)
[2021-04-15] MEDS: VANCOMYCIN 50 MG/ML 60 ML/BOTTLE PO SCH ×3 (00:15→13:13)
[2021-04-15] MEDS: ASPIRIN EC 81 MG TABLET PO SCH (08:34)
[2021-04-15] MEDS: CLOPIDOGREL 75 MG TABLET PO SCH (08:34)
[2021-04-15] MEDS: SEVELAMER CARBONATE 800 MG TABLET PO SCH ×2 (08:34→13:13)
[2021-04-15] MEDS: APIXABAN 2.5 MG TABLET PO SCH (08:34)
[2021-04-15] MEDS: carvediloL 12.5 MG TABLET PO SCH (08:34)
[2021-04-15] MEDS: SACUBITRIL/VALSARTAN 49-51 MG TABLET PO SCH (08:35)
[2021-04-15] MEDS: FLUoxetine 20 MG CAPSULE PO SCH (09:04)
[2021-04-15] MEDS ORDERED: VANCOMYCIN INJ 500 MG in SODIUM CHLORIDE 0.9% 100 ML IV ONE (14:00)
[2021-04-15 15:28] VITALS: BP 98/53
== END 2021-04-15 16:07 | disposition home or self-care (01) | DRG 371 ==
LOC: N.ED 12:24 → N.EDINP 17:05 → SUATTDRO 17:05 → N.5E 17:34
PROVIDERS: ADMIT Hospitalist; ATTEND Internal Medicine

== ENCOUNTER 2021-08-27 23:07 | Inpatient (IN) ==
[2021-08-28 00:42] LABS: Basophils % 0.2 % (0.0-0.8); Hemoglobin 8.5 GM/DL (14.0-18.0); Immature Granulocytes % 1.1 %; Immature Granulocytes Absolute 0.06 #; Lymphocytes # 0.5 10*3/uL (1.4-4.0); Mean Corpuscular HGB Conc 32.7 GM/DL (32-36); Mean Corpuscular Volume 90.3 FL (87-102); Mean Platelet Volume 12.2 FL (9.6-12.0); Monocytes % 15.2 % (1.7-12.7); Neutrophils % 74.5 % (38.7-73.9); Red Blood Count 2.88 MC/CUMM (3.8-5.5); White Blood Count 5.7 T/CUMM (4-12)
[2021-08-28 00:46] LABS: Platelet Count 59 T/CUMM (130-400)
[2021-08-28 01:12] LABS: Band Neutrophils 1 % (0-10); Bilirubin,Total 0.8 MG/DL (0.20-1.00); Lymphocytes 11 % (20-55); Segmented Neutrophils 75 % (50-85); Total Cells Counted 100
[2021-08-28 01:13] LABS: Albumin 2.7 G/DL (3.4-5.0); Burr Cells 1+; Hypochromasia Slight; Osmolality,Calculated 286.8 MOS/KG (273-304); Ovalocytes 1+; Platelet Estimate Decreased; Potassium 3.7 MMOL/L (3.5-5.1); Schistocytes Few; Total Protein 7.2 G/DL (6.4-8.2)
[2021-08-28 01:14] LABS: Microcytosis 1+
[2021-08-28] MEDS ORDERED: SODIUM CHLORIDE 0.9% 500 ML IV STA ×2 (01:41→03:36)
[2021-08-28] MEDS ORDERED: VANCOMYCIN INJ 1,000 MG in SODIUM CHLORIDE 0.9% 250 ML IV STA (01:41)
[2021-08-28] MEDS ORDERED: ACETAMINOPHEN 500 MG TABLET PO STA (01:42)
[2021-08-28] MEDS ORDERED: ONDANSETRON 4 MG/2 ML VIAL IV PRN (02:17)
[2021-08-28] MEDS ORDERED: GLUCAGON 1 MG VIAL IM PRN (02:17)
[2021-08-28] MEDS ORDERED: ACETAMINOPHEN 325 MG TABLET PO PRN (02:17)
[2021-08-28] MEDS ORDERED: DEXTROSE 50% 25 GM/50 ML VIAL IV PRN (02:17)
[2021-08-28] MEDS ORDERED: VANCOMYCIN INJ 750 MG in SODIUM CHLORIDE 0.9% 250 ML IV PRN (04:26)
[2021-08-28] MEDS ORDERED: VANCOMYCIN INJ 1,000 MG in SODIUM CHLORIDE 0.9% 250 ML IV ONE (05:00)
[2021-08-28] MEDS: SODIUM CHLORIDE 0.9% 1,000 ML IV SCH ×2 (06:31→18:14)
[2021-08-28 07:11] LABS: Basophils % 0.4 % (0.0-0.8); Eosinophils % 0.4 % (0.00-10.9); Hematocrit 23.3 VOL% (42.0-52.0); Hemoglobin 7.6 GM/DL (14.0-18.0); Immature Granulocytes % 1.8 %; Immature Granulocytes Absolute 0.09 #; Lymphocytes # 0.4 10*3/uL (1.4-4.0); Lymphocytes % 7.5 % (21.2-54.2); Mean Corpuscular HGB Conc 32.6 GM/DL (32-36); Mean Corpuscular Volume 90.7 FL (87-102); Monocytes % 15.9 % (1.7-12.7); Red Blood Count 2.57 MC/CUMM (3.8-5.5); Red Cell Distribution Width 16.3 % (9.3-17.3)
[2021-08-28 07:20] LABS: Platelet Count 52 T/CUMM (130-400)
[2021-08-28 07:29] LABS: Calcium 8.7 MG/DL (8.5-10.1); Osmolality,Calculated 288.7 MOS/KG (273-304); Potassium 3.6 MMOL/L (3.5-5.1)
[2021-08-28 07:31] LABS: Lymphocytes 5 % (20-55); Microcytosis 1+; Segmented Neutrophils 79 % (50-85); Total Cells Counted 100
[2021-08-28 07:32] LABS: Acanthocytes Few; Burr Cells Few; Ovalocytes Slight; Platelet Estimate Decreased
[2021-08-28] MEDS ORDERED: HEPARIN 5,000 UNIT/1 ML VIAL SUBCUT SCH (09:00)
[2021-08-28] MEDS: PANTOPRAZOLE 40 MG TABLET PO SCH (10:19)
[2021-08-28] MEDS: PIPERACILLIN/TAZOBACTAM 3,375 MG in SODIUM CHLORIDE 0.9% 100 ML IV SCH ×2 (10:22→21:28)
[2021-08-28] MEDS ORDERED: MAGNESIUM SULF RIDER 2 GM/50 ML PREMIX IV PRN (11:29)
[2021-08-28] MEDS ORDERED: MAGNESIUM SULF RIDER 4 GM/100 ML PREMIX IV PRN (11:29)
[2021-08-28 12:03] LABS: Hematocrit 23.5 VOL% (42.0-52.0); Hemoglobin 7.8 GM/DL (14.0-18.0)
[2021-08-28 19:24] LABS: Hematocrit 22.1 VOL% (42.0-52.0); Hemoglobin 7.5 GM/DL (14.0-18.0)
[2021-08-29] MEDS: SODIUM CHLORIDE 0.9% 1,000 ML IV SCH ×2 (06:17→23:10)
[2021-08-29 07:48] LABS: Basophils % 0.1 % (0.0-0.8); Eosinophils % 0.5 % (0.00-10.9); Hematocrit 21.9 VOL% (42.0-52.0); Hemoglobin 7.3 GM/DL (14.0-18.0); Immature Granulocytes % 1.2 %; Immature Granulocytes Absolute 0.09 #; Lymphocytes # 0.6 10*3/uL (1.4-4.0); Lymphocytes % 7.7 % (21.2-54.2); Mean Corpuscular HGB Conc 33.3 GM/DL (32-36); Mean Corpuscular Volume 89.4 FL (87-102); Mean Platelet Volume 12.8 FL (9.6-12.0); Monocytes % 16.2 % (1.7-12.7); Neutrophils % 74.3 % (38.7-73.9); Platelet Count 62 T/CUMM (130-400); Red Blood Count 2.45 MC/CUMM (3.8-5.5); Red Cell Distribution Width 16.5 % (9.3-17.3); White Blood Count 7.3 T/CUMM (4-12)
[2021-08-29 08:03] LABS: Calcium 8.6 MG/DL (8.5-10.1); Osmolality,Calculated 286.2 MOS/KG (273-304); Potassium 3.9 MMOL/L (3.5-5.1)
[2021-08-29 08:07] LABS: Band Neutrophils 1 % (0-10); Eosinophils 1 % (0-10); Hypochromasia 1+; Lymphocytes 5 % (20-55); Microcytosis 1+; Ovalocytes Slight; Platelet Estimate Decreased; Segmented Neutrophils 82 % (50-85); Total Cells Counted 100
[2021-08-29] MEDS: PANTOPRAZOLE 40 MG TABLET PO SCH (08:42)
[2021-08-29] MEDS ORDERED: SODIUM CHLORIDE 0.9% 1,000 ML IV PRN (10:11)
[2021-08-29] MEDS ORDERED: CHOLESTYRAMINE 4 GM PACK PO PRN (11:53)
[2021-08-29] MEDS: PIPERACILLIN/TAZOBACTAM 3,375 MG in SODIUM CHLORIDE 0.9% 100 ML IV SCH ×2 (12:09→23:10)
[2021-08-29] MEDS: CALCIUM ACETATE 667 MG CAPSULE PO SCH ×2 (14:57→17:47)
[2021-08-29] MEDS ORDERED: VANCOMYCIN INJ 750 MG in SODIUM CHLORIDE 0.9% 250 ML IV ONE (17:00)
[2021-08-29] MEDS: methylPREDNISolone 4 MG TABLET PO SCH ×2 (17:48→21:40)
[2021-08-29] MEDS ORDERED: APIXABAN 2.5 MG TABLET PO SCH (21:00)
[2021-08-29] MEDS: METHOCARBAMOL 500 MG TABLET PO SCH (21:40)
[2021-08-30 05:37] LABS: Basophils % 0.1 % (0.0-0.8); Eosinophils % 0.2 % (0.00-10.9); Hematocrit 23.8 VOL% (42.0-52.0); Hemoglobin 7.7 GM/DL (14.0-18.0); Immature Granulocytes % 1.5 %; Immature Granulocytes Absolute 0.14 #; Lymphocytes # 0.5 10*3/uL (1.4-4.0); Lymphocytes % 4.8 % (21.2-54.2); Mean Corpuscular HGB Conc 32.4 GM/DL (32-36); Mean Corpuscular Volume 90.2 FL (87-102); Mean Platelet Volume 12.9 FL (9.6-12.0); Monocytes % 4.9 % (1.7-12.7); Neutrophils % 88.5 % (38.7-73.9); Red Blood Count 2.64 MC/CUMM (3.8-5.5); Red Cell Distribution Width 16.9 % (9.3-17.3); White Blood Count 9.6 T/CUMM (4-12)
[2021-08-30 05:38] LABS: Platelet Count 93 T/CUMM (130-400)
[2021-08-30 05:58] LABS: Calcium 8.5 MG/DL (8.5-10.1); Osmolality,Calculated 290.1 MOS/KG (273-304); Potassium 4.7 MMOL/L (3.5-5.1)
[2021-08-30 06:01] LABS: Burr Cells Few; Hypochromasia 1+; Lymphocytes 3 % (20-55); Ovalocytes Few; Platelet Estimate Decreased; Segmented Neutrophils 96 % (50-85); Total Cells Counted 100
[2021-08-30] MEDS ORDERED: CLOPIDOGREL 75 MG TABLET PO SCH (09:00)
[2021-08-30] MEDS: methylPREDNISolone 4 MG TABLET PO SCH ×4 (11:06→21:33)
[2021-08-30] MEDS: CALCIUM ACETATE 667 MG CAPSULE PO SCH ×3 (11:06→18:17)
[2021-08-30] MEDS: METHOCARBAMOL 500 MG TABLET PO SCH ×3 (11:07→21:33)
[2021-08-30] MEDS: PANTOPRAZOLE 40 MG TABLET PO SCH (11:07)
[2021-08-30] MEDS: FLUoxetine 20 MG CAPSULE PO SCH (11:07)
[2021-08-30] MEDS: ASPIRIN EC 81 MG TABLET PO SCH (11:07)
[2021-08-30] MEDS ORDERED: fentaNYL 100 MCG/2 ML VIAL ONE (15:11)
[2021-08-30] MEDS ORDERED: LIDOCAINE 2% 5 ML VIAL ONE (15:11)
[2021-08-30] MEDS ORDERED: MIDAZOLAM 2 MG/2 ML VIAL ONE (15:11)
[2021-08-30] MEDS ORDERED: propofoL 200 MG/20 ML VIAL IV ONE (15:11)
[2021-08-30] MEDS ORDERED: SODIUM CHLORIDE 0.9% 100 ML IV ONE (15:16)
[2021-08-30] MEDS: PIPERACILLIN/TAZOBACTAM 3,375 MG in SODIUM CHLORIDE 0.9% 100 ML IV SCH (16:50)
[2021-08-30] MEDS: carvediloL 12.5 MG TABLET PO SCH (21:33)
[2021-08-31 05:06] LABS: Basophils % 0.1 % (0.0-0.8); Hematocrit 24.5 VOL% (42.0-52.0); Hemoglobin 8.1 GM/DL (14.0-18.0); Immature Granulocytes % 1.9 %; Immature Granulocytes Absolute 0.19 #; Lymphocytes # 0.7 10*3/uL (1.4-4.0); Lymphocytes % 7.4 % (21.2-54.2); Mean Corpuscular HGB Conc 33.1 GM/DL (32-36); Mean Corpuscular Volume 88.8 FL (87-102); Mean Platelet Volume 12.3 FL (9.6-12.0); Monocytes % 6.1 % (1.7-12.7); Neutrophils % 84.5 % (38.7-73.9); Platelet Count 129 T/CUMM (130-400); Red Blood Count 2.76 MC/CUMM (3.8-5.5); Red Cell Distribution Width 17.2 % (9.3-17.3)
[2021-08-31 05:25] LABS: Burr Cells Slight; Hypochromasia 1+; Microcytosis 1+; Ovalocytes Slight
[2021-08-31 05:26] LABS: Calcium 8.5 MG/DL (8.5-10.1); Osmolality,Calculated 296.7 MOS/KG (273-304); Potassium 4.6 MMOL/L (3.5-5.1)
[2021-08-31] MEDS: methylPREDNISolone 4 MG TABLET PO SCH ×4 (10:31→22:18)
[2021-08-31] MEDS: carvediloL 12.5 MG TABLET PO SCH ×2 (10:31→17:53)
[2021-08-31] MEDS: CALCIUM ACETATE 667 MG CAPSULE PO SCH ×3 (10:31→17:52)
[2021-08-31] MEDS: SACUBITRIL/VALSARTAN 49-51 MG TABLET PO SCH ×2 (10:32→22:20)
[2021-08-31] MEDS: ASPIRIN EC 81 MG TABLET PO SCH (10:32)
[2021-08-31] MEDS: PANTOPRAZOLE 40 MG TABLET PO SCH (10:32)
[2021-08-31] MEDS: METHOCARBAMOL 500 MG TABLET PO SCH ×3 (10:33→22:17)
[2021-08-31] MEDS: FLUoxetine 20 MG CAPSULE PO SCH (10:33)
[2021-08-31] MEDS ORDERED: HEPARIN 10,000 UNIT/10 ML VIAL IV SCH (11:15)
[2021-08-31] MEDS ORDERED: ALTEPLASE 2 MG VIAL IV ONE (11:30)
[2021-08-31] MEDS ORDERED: VANCOMYCIN INJ 750 MG in SODIUM CHLORIDE 0.9% 250 ML IV ONE (17:00)
[2021-08-31] MEDS: CEFTAROLINE 200 MG in SODIUM CHLORIDE 0.9% 100 ML IV SCH (22:17)
[2021-09-01] MEDS: CEFTAROLINE 200 MG in SODIUM CHLORIDE 0.9% 100 ML IV SCH ×3 (05:09→22:15)
[2021-09-01 07:13] LABS: Basophils % 0.2 % (0.0-0.8); Hematocrit 27.7 VOL% (42.0-52.0); Hemoglobin 9.1 GM/DL (14.0-18.0); Immature Granulocytes % 4.9 %; Immature Granulocytes Absolute 0.55 #; Lymphocytes # 0.7 10*3/uL (1.4-4.0); Lymphocytes % 6.6 % (21.2-54.2); Mean Corpuscular HGB Conc 32.9 GM/DL (32-36); Mean Corpuscular Volume 88.8 FL (87-102); Monocytes % 6.1 % (1.7-12.7); Neutrophils % 82.2 % (38.7-73.9); Platelet Count 143 T/CUMM (130-400); Red Blood Count 3.12 MC/CUMM (3.8-5.5); Red Cell Distribution Width 17.2 % (9.3-17.3); White Blood Count 11.1 T/CUMM (4-12)
[2021-09-01 07:32] LABS: Calcium 8.4 MG/DL (8.5-10.1); Osmolality,Calculated 292.7 MOS/KG (273-304); Potassium 4.4 MMOL/L (3.5-5.1)
[2021-09-01 07:34] LABS: Band Neutrophils 1 % (0-10); Lymphocytes 3 % (20-55); Segmented Neutrophils 88 % (50-85); Total Cells Counted 100
[2021-09-01 07:35] LABS: Hypochromasia 1+; Microcytosis 1+; Platelet Estimate Adequate
[2021-09-01] MEDS: FLUoxetine 20 MG CAPSULE PO SCH (09:03)
[2021-09-01] MEDS: PANTOPRAZOLE 40 MG TABLET PO SCH (09:04)
[2021-09-01] MEDS: CALCIUM ACETATE 667 MG CAPSULE PO SCH ×3 (09:04→18:28)
[2021-09-01] MEDS: methylPREDNISolone 4 MG TABLET PO SCH ×3 (09:04→22:15)
[2021-09-01] MEDS: ASPIRIN EC 81 MG TABLET PO SCH (09:04)
[2021-09-01] MEDS: SACUBITRIL/VALSARTAN 49-51 MG TABLET PO SCH (09:04)
[2021-09-01] MEDS: carvediloL 12.5 MG TABLET PO SCH ×2 (09:04→16:55)
[2021-09-01] MEDS: METHOCARBAMOL 500 MG TABLET PO SCH ×3 (09:04→22:15)
[2021-09-02] MEDS: CEFTAROLINE 200 MG in SODIUM CHLORIDE 0.9% 100 ML IV SCH ×2 (05:09→16:26)
[2021-09-02 05:12] LABS: Basophils % 0.2 % (0.0-0.8); Hematocrit 28.5 VOL% (42.0-52.0); Hemoglobin 9.3 GM/DL (14.0-18.0); Immature Granulocytes % 7.6 %; Immature Granulocytes Absolute 0.81 #; Lymphocytes # 0.8 10*3/uL (1.4-4.0); Lymphocytes % 7.1 % (21.2-54.2); Mean Corpuscular HGB Conc 32.6 GM/DL (32-36); Mean Corpuscular Volume 90.5 FL (87-102); Mean Platelet Volume 11.3 FL (9.6-12.0); Monocytes % 6.2 % (1.7-12.7); Neutrophils % 78.9 % (38.7-73.9); Platelet Count 146 T/CUMM (130-400); Red Blood Count 3.15 MC/CUMM (3.8-5.5); Red Cell Distribution Width 16.7 % (9.3-17.3); White Blood Count 10.6 T/CUMM (4-12)
[2021-09-02 05:36] LABS: Calcium 8.3 MG/DL (8.5-10.1); Osmolality,Calculated 292.9 MOS/KG (273-304); Potassium 4.5 MMOL/L (3.5-5.1)
[2021-09-02 05:37] LABS: Band Neutrophils 2 % (0-10); Hypochromasia 1+; Lymphocytes 7 % (20-55); Microcytosis 1+; Platelet Estimate Adequate; Segmented Neutrophils 88 % (50-85); Total Cells Counted 100
[2021-09-02] MEDS ORDERED: SODIUM CHLORIDE 0.9% 1,000 ML IV SCH (08:30)
[2021-09-02] MEDS: METHOCARBAMOL 500 MG TABLET PO SCH (09:00)
[2021-09-02] MEDS: CLOPIDOGREL 75 MG TABLET PO SCH (09:00)
[2021-09-02] MEDS: ASPIRIN EC 81 MG TABLET PO SCH (09:00)
[2021-09-02] MEDS: APIXABAN 2.5 MG TABLET PO SCH ×2 (09:00→21:03)
[2021-09-02] MEDS: FLUoxetine 20 MG CAPSULE PO SCH (09:00)
[2021-09-02] MEDS: CALCIUM ACETATE 667 MG CAPSULE PO SCH ×3 (09:00→18:03)
[2021-09-02] MEDS: PANTOPRAZOLE 40 MG TABLET PO SCH (09:01)
[2021-09-02] MEDS: carvediloL 12.5 MG TABLET PO SCH (09:01)
[2021-09-02] MEDS: methylPREDNISolone 4 MG TABLET PO SCH ×2 (09:01→21:03)
[2021-09-02] MEDS ORDERED: VANCOMYCIN INJ 750 MG in SODIUM CHLORIDE 0.9% 250 ML IV PRN (11:52)
[2021-09-02] MEDS ORDERED: VANCOMYCIN INJ 750 MG in SODIUM CHLORIDE 0.9% 250 ML IV ONE (17:00)
[2021-09-02] MEDS ORDERED: ALTEPLASE 2 MG VIAL INTRACATH PRN (17:15)
[2021-09-03] MEDS: CEFTAROLINE 200 MG in SODIUM CHLORIDE 0.9% 100 ML IV SCH ×3 (00:14→16:50)
[2021-09-03 06:45] LABS: Basophils % 0.3 % (0.0-0.8); Eosinophils % 0.2 % (0.00-10.9); Hematocrit 29.6 VOL% (42.0-52.0); Hemoglobin 9.7 GM/DL (14.0-18.0); Immature Granulocytes % 10.4 %; Immature Granulocytes Absolute 1.35 #; Lymphocytes # 0.9 10*3/uL (1.4-4.0); Lymphocytes % 6.6 % (21.2-54.2); Mean Corpuscular HGB Conc 32.8 GM/DL (32-36); Mean Platelet Volume 10.5 FL (9.6-12.0); Monocytes % 6.9 % (1.7-12.7); Neutrophils % 75.6 % (38.7-73.9); Platelet Count 167 T/CUMM (130-400); Red Blood Count 3.29 MC/CUMM (3.8-5.5); Red Cell Distribution Width 16.1 % (9.3-17.3); White Blood Count 12.9 T/CUMM (4-12)
[2021-09-03 07:04] LABS: Calcium 8.7 MG/DL (8.5-10.1); Osmolality,Calculated 294.1 MOS/KG (273-304); Potassium 4.6 MMOL/L (3.5-5.1)
[2021-09-03 07:15] LABS: Band Neutrophils 1 % (0-10); Lymphocytes 7 % (20-55); Metamyelocytes 8 %; Myelocytes 3 %; Segmented Neutrophils 79 % (50-85); Total Cells Counted 100
[2021-09-03 07:16] LABS: Elliptocytes Few; Hypochromasia 1+; Ovalocytes Few; Platelet Estimate Adequate; Polychromasia Slight
[2021-09-03] MEDS: FLUoxetine 20 MG CAPSULE PO SCH (10:14)
[2021-09-03] MEDS: CALCIUM ACETATE 667 MG CAPSULE PO SCH ×3 (10:14→16:49)
[2021-09-03] MEDS: methylPREDNISolone 4 MG TABLET PO SCH (10:15)
[2021-09-03] MEDS: ASPIRIN EC 81 MG TABLET PO SCH (10:15)
[2021-09-03] MEDS: CLOPIDOGREL 75 MG TABLET PO SCH (10:15)
[2021-09-03] MEDS: PANTOPRAZOLE 40 MG TABLET PO SCH (10:15)
[2021-09-03] MEDS: APIXABAN 2.5 MG TABLET PO SCH ×2 (10:16→21:11)
[2021-09-03] MEDS: METHOCARBAMOL 500 MG TABLET PO SCH ×2 (14:26→21:11)
[2021-09-03] MEDS: carvediloL 12.5 MG TABLET PO SCH (16:49)
[2021-09-03] MEDS: SACUBITRIL/VALSARTAN 49-51 MG TABLET PO SCH (21:11)
[2021-09-04] MEDS: CEFTAROLINE 200 MG in SODIUM CHLORIDE 0.9% 100 ML IV SCH ×3 (02:02→21:46)
[2021-09-04] MEDS ORDERED: LIDOCAINE 1%/EPI INJ 20 ML VIAL ONE (06:48)
[2021-09-04] MEDS ORDERED: HEPARIN 5,000 UNIT/1 ML VIAL ONE (06:48)
[2021-09-04] MEDS ORDERED: BUPIVACAINE MPF 0.25% 30 ML VIAL ONE (06:48)
[2021-09-04 07:30] LABS: Basophils # 0.1 10*3/uL (0.0-0.2); Basophils % 0.8 % (0.0-0.8); Eosinophils # 0.1 10*3/uL (0.0-0.87); Eosinophils % 0.7 % (0.00-10.9); Hematocrit 29.6 VOL% (42.0-52.0); Hemoglobin 9.7 GM/DL (14.0-18.0); Immature Granulocytes % 9.7 %; Immature Granulocytes Absolute 1.29 #; Lymphocytes # 1.2 10*3/uL (1.4-4.0); Lymphocytes % 9.2 % (21.2-54.2); Mean Corpuscular HGB Conc 32.8 GM/DL (32-36); Mean Corpuscular Volume 92.2 FL (87-102); Mean Platelet Volume 10.8 FL (9.6-12.0); Monocytes % 8.5 % (1.7-12.7); Neutrophils % 71.1 % (38.7-73.9); Platelet Count 146 T/CUMM (130-400); Red Blood Count 3.21 MC/CUMM (3.8-5.5); Red Cell Distribution Width 16.1 % (9.3-17.3); White Blood Count 13.3 T/CUMM (4-12)
[2021-09-04 07:52] LABS: Calcium 8.5 MG/DL (8.5-10.1); Osmolality,Calculated 297.1 MOS/KG (273-304)
[2021-09-04] MEDS ORDERED: propofoL 200 MG/20 ML VIAL IV ONE (07:52)
[2021-09-04] MEDS ORDERED: LIDOCAINE 2% 5 ML VIAL ONE (07:52)
[2021-09-04] MEDS ORDERED: ceFAZolin 1,000 MG VIAL ONE (07:53)
[2021-09-04] MEDS: CALCIUM ACETATE 667 MG CAPSULE PO SCH ×3 (09:27→17:37)
[2021-09-04] MEDS: carvediloL 12.5 MG TABLET PO SCH ×2 (09:27→17:37)
[2021-09-04] MEDS: SACUBITRIL/VALSARTAN 49-51 MG TABLET PO SCH ×2 (09:27→22:27)
[2021-09-04] MEDS: FLUoxetine 20 MG CAPSULE PO SCH (09:27)
[2021-09-04] MEDS: CLOPIDOGREL 75 MG TABLET PO SCH (09:27)
[2021-09-04] MEDS: PANTOPRAZOLE 40 MG TABLET PO SCH (09:27)
[2021-09-04] MEDS: ASPIRIN EC 81 MG TABLET PO SCH (09:27)
[2021-09-04] MEDS: APIXABAN 2.5 MG TABLET PO SCH ×2 (09:27→21:42)
[2021-09-04] MEDS: METHOCARBAMOL 500 MG TABLET PO SCH ×3 (09:27→21:43)
[2021-09-04 09:28] LABS: Lymphocytes 6 % (20-55); Metamyelocytes 3 %; Segmented Neutrophils 83 % (50-85); Total Cells Counted 100
[2021-09-04 09:29] LABS: Acanthocytes Few; Platelet Estimate Adequate; Polychromasia Slight
[2021-09-04] MEDS ORDERED: VANCOMYCIN INJ 750 MG in SODIUM CHLORIDE 0.9% 250 ML IV ONE (16:00)
[2021-09-04] MEDS ORDERED: VANCOMYCIN INJ 750 MG in SODIUM CHLORIDE 0.9% 250 ML IV PRN (16:33)
[2021-09-05] MEDS: CEFTAROLINE 200 MG in SODIUM CHLORIDE 0.9% 100 ML IV SCH ×3 (04:38→18:24)
[2021-09-05] MEDS: carvediloL 12.5 MG TABLET PO SCH ×2 (08:00→17:13)
[2021-09-05] MEDS: CALCIUM ACETATE 667 MG CAPSULE PO SCH ×3 (08:00→17:14)
[2021-09-05] MEDS: METHOCARBAMOL 500 MG TABLET PO SCH ×3 (09:00→22:33)
[2021-09-05 13:10] LABS: Basophils % 0.2 % (0.0-0.8); Eosinophils # 0.1 10*3/uL (0.0-0.87); Eosinophils % 1.2 % (0.00-10.9); Hematocrit 25.8 VOL% (42.0-52.0); Hemoglobin 8.2 GM/DL (14.0-18.0); Immature Granulocytes % 14.2 %; Immature Granulocytes Absolute 1.19 #; Lymphocytes % 12.3 % (21.2-54.2); Mean Corpuscular HGB Conc 31.8 GM/DL (32-36); Mean Corpuscular Volume 93.1 FL (87-102); Mean Platelet Volume 9.9 FL (9.6-12.0); Monocytes % 4.7 % (1.7-12.7); Neutrophils % 67.4 % (38.7-73.9); Platelet Count 141 T/CUMM (130-400); Red Blood Count 2.77 MC/CUMM (3.8-5.5); White Blood Count 8.4 T/CUMM (4-12)
[2021-09-05 13:23] LABS: Calcium 8.6 MG/DL (8.5-10.1); Osmolality,Calculated 289.1 MOS/KG (273-304)
[2021-09-05] MEDS ORDERED: BISACODYL 5 MG TABLET PO ONE (13:31)
[2021-09-05 13:38] LABS: Band Neutrophils 1 % (0-10); Eosinophils 2 % (0-10); Hypochromasia 1+; Lymphocytes 8 % (20-55); Metamyelocytes 1 %; Myelocytes 1 %; Segmented Neutrophils 82 % (50-85); Total Cells Counted 100
[2021-09-05 13:39] LABS: Microcytosis 1+; Platelet Estimate Adequate
[2021-09-05 13:40] LABS: Atypical Lymphocytes Few
[2021-09-05] MEDS ORDERED: HEPARIN 10,000 UNIT/10 ML VIAL IV ONE (15:00)
[2021-09-05] MEDS ORDERED: VANCOMYCIN INJ 750 MG in SODIUM CHLORIDE 0.9% 250 ML IV ONE (17:00)
[2021-09-05] MEDS: ASPIRIN EC 81 MG TABLET PO SCH (17:13)
[2021-09-05] MEDS: APIXABAN 2.5 MG TABLET PO SCH ×2 (17:13→22:33)
[2021-09-05] MEDS: FLUoxetine 20 MG CAPSULE PO SCH (17:14)
[2021-09-05] MEDS: SACUBITRIL/VALSARTAN 49-51 MG TABLET PO SCH ×2 (17:14→22:33)
[2021-09-05] MEDS: CLOPIDOGREL 75 MG TABLET PO SCH (17:14)
[2021-09-05] MEDS: PANTOPRAZOLE 40 MG TABLET PO SCH (17:14)
[2021-09-06] MEDS: CEFTAROLINE 200 MG in SODIUM CHLORIDE 0.9% 100 ML IV SCH ×3 (03:00→18:17)
[2021-09-06 06:35] LABS: Basophils % 0.2 % (0.0-0.8); Eosinophils # 0.1 10*3/uL (0.0-0.87); Eosinophils % 1.1 % (0.00-10.9); Hematocrit 24.1 VOL% (42.0-52.0); Immature Granulocytes % 11.3 %; Immature Granulocytes Absolute 1.06 #; Lymphocytes # 0.9 10*3/uL (1.4-4.0); Lymphocytes % 9.9 % (21.2-54.2); Mean Corpuscular HGB Conc 33.2 GM/DL (32-36); Mean Corpuscular Volume 91.3 FL (87-102); Monocytes % 8.1 % (1.7-12.7); Neutrophils % 69.4 % (38.7-73.9); Platelet Count 147 T/CUMM (130-400); Red Blood Count 2.64 MC/CUMM (3.8-5.5); Red Cell Distribution Width 16.1 % (9.3-17.3); White Blood Count 9.4 T/CUMM (4-12)
[2021-09-06 06:47] LABS: Band Neutrophils 1 % (0-10); Eosinophils 1 % (0-10); Lymphocytes 9 % (20-55); Platelet Estimate Adequate; Segmented Neutrophils 82 % (50-85); Total Cells Counted 100
[2021-09-06 06:48] LABS: Hypochromasia 1+; Microcytosis 1+
[2021-09-06 06:52] LABS: Calcium 9.2 MG/DL (8.5-10.1); Osmolality,Calculated 282.1 MOS/KG (273-304); Potassium 3.7 MMOL/L (3.5-5.1)
[2021-09-06 07:09] LABS: Risk Ratio 6.9; VLDL Cholesterol 38.8 MG/DL
[2021-09-06] MEDS: CALCIUM ACETATE 667 MG CAPSULE PO SCH ×3 (10:05→16:45)
[2021-09-06] MEDS: APIXABAN 2.5 MG TABLET PO SCH ×2 (10:06→21:43)
[2021-09-06] MEDS: CLOPIDOGREL 75 MG TABLET PO SCH (10:06)
[2021-09-06] MEDS: PANTOPRAZOLE 40 MG TABLET PO SCH (10:06)
[2021-09-06] MEDS: carvediloL 12.5 MG TABLET PO SCH ×2 (10:06→16:44)
[2021-09-06] MEDS: ASPIRIN EC 81 MG TABLET PO SCH (10:07)
[2021-09-06] MEDS: FLUoxetine 20 MG CAPSULE PO SCH (10:08)
[2021-09-06] MEDS: SACUBITRIL/VALSARTAN 49-51 MG TABLET PO SCH ×2 (10:12→21:43)
[2021-09-06] MEDS: METHOCARBAMOL 500 MG TABLET PO SCH ×3 (10:13→21:43)
[2021-09-06 14:16] LABS: Folate 4.63 NG/ML (5.38-24.0)
[2021-09-06 14:23] LABS: % Iron Saturation 33.8 % (18-50)
[2021-09-06] MEDS: ATORVASTATIN 10 MG TABLET PO SCH (21:43)
[2021-09-07] MEDS: CEFTAROLINE 200 MG in SODIUM CHLORIDE 0.9% 100 ML IV SCH ×3 (03:00→19:20)
[2021-09-07 04:22] LABS: Basophils % 0.1 % (0.0-0.8); Eosinophils # 0.1 10*3/uL (0.0-0.87); Eosinophils % 1.1 % (0.00-10.9); Hemoglobin 6.9 GM/DL (14.0-18.0); Immature Granulocytes % 9.5 %; Immature Granulocytes Absolute 0.83 #; Lymphocytes # 1.1 10*3/uL (1.4-4.0); Lymphocytes % 12.9 % (21.2-54.2); Mean Corpuscular HGB Conc 31.4 GM/DL (32-36); Mean Corpuscular Volume 93.6 FL (87-102); Mean Platelet Volume 9.5 FL (9.6-12.0); Monocytes % 9.9 % (1.7-12.7); Neutrophils % 66.5 % (38.7-73.9); Platelet Count 133 T/CUMM (130-400); Red Blood Count 2.35 MC/CUMM (3.8-5.5); Red Cell Distribution Width 16.2 % (9.3-17.3); White Blood Count 8.7 T/CUMM (4-12)
[2021-09-07 04:42] LABS: Calcium 9.1 MG/DL (8.5-10.1); Osmolality,Calculated 284.2 MOS/KG (273-304)
[2021-09-07 04:45] LABS: Band Neutrophils 1 % (0-10); Eosinophils 3 % (0-10); Lymphocytes 15 % (20-55); Segmented Neutrophils 66 % (50-85); Total Cells Counted 100
[2021-09-07 04:46] LABS: Hypochromasia 1+; Microcytosis 1+; Ovalocytes Slight; Platelet Estimate Adequate
[2021-09-07] MEDS ORDERED: SODIUM CHLORIDE 0.9% 1,000 ML IV PRN (07:07)
[2021-09-07] MEDS ORDERED: SODIUM CHLORIDE 0.9% 250 ML IV SCH (09:30)
[2021-09-07] MEDS ORDERED: HEPARIN 5,000 UNIT/1 ML VIAL ONE (10:01)
[2021-09-07] MEDS ORDERED: BUPIVACAINE MPF 0.25% 30 ML VIAL ONE (10:01)
[2021-09-07] MEDS ORDERED: LIDOCAINE 1%/EPI INJ 20 ML VIAL ONE (10:01)
[2021-09-07] MEDS ORDERED: TISSUE ADHESIVE 1 EACH APPLICATOR TOP ONE (10:01)
[2021-09-07] MEDS ORDERED: fentaNYL 100 MCG/2 ML VIAL ONE (10:39)
[2021-09-07] MEDS ORDERED: propofoL 200 MG/20 ML VIAL IV ONE (11:25)
[2021-09-07] MEDS ORDERED: SEVOFLURANE 1 UNIT/15 MINUTE INH ONE (11:25)
[2021-09-07] MEDS ORDERED: LIDOCAINE 2% 5 ML VIAL ONE (11:25)
[2021-09-07] MEDS: FERROUS SULFATE 325 MG TABLET PO SCH (14:33)
[2021-09-07] MEDS: CLOPIDOGREL 75 MG TABLET PO SCH (14:34)
[2021-09-07] MEDS: CALCIUM ACETATE 667 MG CAPSULE PO SCH ×3 (14:34→17:32)
[2021-09-07] MEDS: APIXABAN 2.5 MG TABLET PO SCH ×2 (14:34→21:01)
[2021-09-07] MEDS: SACUBITRIL/VALSARTAN 49-51 MG TABLET PO SCH ×2 (14:34→21:01)
[2021-09-07] MEDS: METHOCARBAMOL 500 MG TABLET PO SCH ×3 (14:34→21:01)
[2021-09-07] MEDS: PANTOPRAZOLE 40 MG TABLET PO SCH (14:34)
[2021-09-07] MEDS: FLUoxetine 20 MG CAPSULE PO SCH (14:34)
[2021-09-07] MEDS: ASPIRIN EC 81 MG TABLET PO SCH (14:35)
[2021-09-07] MEDS: carvediloL 12.5 MG TABLET PO SCH ×3 (14:35→17:30)
[2021-09-07 15:36] LABS: Hematocrit 28.3 VOL% (42.0-52.0); Hemoglobin 9.1 GM/DL (14.0-18.0)
[2021-09-07] MEDS: ATORVASTATIN 10 MG TABLET PO SCH (21:01)
[2021-09-08] MEDS: CEFTAROLINE 200 MG in SODIUM CHLORIDE 0.9% 100 ML IV SCH ×3 (04:04→18:10)
[2021-09-08 05:49] LABS: Basophils % 0.2 % (0.0-0.8); Eosinophils # 0.1 10*3/uL (0.0-0.87); Eosinophils % 0.9 % (0.00-10.9); Hematocrit 24.7 VOL% (42.0-52.0); Hemoglobin 7.9 GM/DL (14.0-18.0); Immature Granulocytes % 3.9 %; Immature Granulocytes Absolute 0.31 #; Lymphocytes % 11.9 % (21.2-54.2); Mean Corpuscular Volume 91.5 FL (87-102); Mean Platelet Volume 10.2 FL (9.6-12.0); Monocytes % 10.2 % (1.7-12.7); Neutrophils % 72.9 % (38.7-73.9); Platelet Count 147 T/CUMM (130-400); Red Cell Distribution Width 16.3 % (9.3-17.3)
[2021-09-08 06:06] LABS: Calcium 8.9 MG/DL (8.5-10.1); Osmolality,Calculated 277.2 MOS/KG (273-304); Potassium 4.2 MMOL/L (3.5-5.1)
[2021-09-08] MEDS: CLOPIDOGREL 75 MG TABLET PO SCH (08:43)
[2021-09-08] MEDS: CALCIUM ACETATE 667 MG CAPSULE PO SCH ×3 (08:43→18:09)
[2021-09-08] MEDS: FOLIC ACID 1 MG TABLET PO SCH (08:43)
[2021-09-08] MEDS: FERROUS SULFATE 325 MG TABLET PO SCH (08:44)
[2021-09-08] MEDS: PANTOPRAZOLE 40 MG TABLET PO SCH (08:44)
[2021-09-08] MEDS: APIXABAN 2.5 MG TABLET PO SCH ×2 (08:44→21:27)
[2021-09-08] MEDS: ASPIRIN EC 81 MG TABLET PO SCH (08:44)
[2021-09-08] MEDS: METHOCARBAMOL 500 MG TABLET PO SCH ×3 (08:44→21:27)
[2021-09-08] MEDS: FLUoxetine 20 MG CAPSULE PO SCH (08:44)
[2021-09-08] MEDS: carvediloL 12.5 MG TABLET PO SCH ×2 (10:03→18:09)
[2021-09-08] MEDS: SACUBITRIL/VALSARTAN 49-51 MG TABLET PO SCH ×2 (10:03→21:27)
[2021-09-08] MEDS: traMADol 50 MG TABLET PO PRN (12:15)
[2021-09-08] MEDS: ATORVASTATIN 10 MG TABLET PO SCH (21:27)
[2021-09-09] MEDS: CEFTAROLINE 200 MG in SODIUM CHLORIDE 0.9% 100 ML IV SCH (04:07)
[2021-09-09] MEDS ORDERED: VANCOMYCIN INJ 750 MG in SODIUM CHLORIDE 0.9% 250 ML IV ONE (12:00)
[2021-09-09] MEDS: CALCIUM ACETATE 667 MG CAPSULE PO SCH ×2 (13:27→17:04)
[2021-09-09] MEDS: ASPIRIN EC 81 MG TABLET PO SCH ×2 (13:30→14:10)
[2021-09-09] MEDS: CLOPIDOGREL 75 MG TABLET PO SCH ×2 (13:30→14:12)
[2021-09-09] MEDS: FOLIC ACID 1 MG TABLET PO SCH ×2 (13:30→14:12)
[2021-09-09] MEDS: FLUoxetine 20 MG CAPSULE PO SCH ×2 (13:30→14:12)
[2021-09-09] MEDS: PANTOPRAZOLE 40 MG TABLET PO SCH ×2 (13:31→14:12)
[2021-09-09] MEDS: APIXABAN 2.5 MG TABLET PO SCH ×3 (13:31→21:24)
[2021-09-09] MEDS: SACUBITRIL/VALSARTAN 49-51 MG TABLET PO SCH ×3 (13:31→21:24)
[2021-09-09] MEDS: carvediloL 12.5 MG TABLET PO SCH ×3 (13:31→17:04)
[2021-09-09] MEDS: METHOCARBAMOL 500 MG TABLET PO SCH ×3 (13:32→21:25)
[2021-09-09] MEDS: FERROUS SULFATE 325 MG TABLET PO SCH ×2 (13:32→14:12)
[2021-09-09] MEDS: traMADol 50 MG TABLET PO PRN (13:36)
[2021-09-09] MEDS: ATORVASTATIN 10 MG TABLET PO SCH (21:25)
[2021-09-10 06:36] LABS: Basophils % 0.3 % (0.0-0.8); Eosinophils # 0.1 10*3/uL (0.0-0.87); Eosinophils % 1.4 % (0.00-10.9); Hematocrit 19.8 VOL% (42.0-52.0); Immature Granulocytes % 1.2 %; Immature Granulocytes Absolute 0.08 #; Lymphocytes # 0.9 10*3/uL (1.4-4.0); Lymphocytes % 13.5 % (21.2-54.2); Mean Corpuscular HGB Conc 30.8 GM/DL (32-36); Mean Corpuscular Volume 94.3 FL (87-102); Mean Platelet Volume 10.3 FL (9.6-12.0); Monocytes % 14.3 % (1.7-12.7); Neutrophils % 69.3 % (38.7-73.9); Platelet Count 149 T/CUMM (130-400); White Blood Count 6.7 T/CUMM (4-12)
[2021-09-10 06:38] LABS: Hemoglobin 6.1 GM/DL (14.0-18.0)
[2021-09-10] MEDS ORDERED: SODIUM CHLORIDE 0.9% 1,000 ML IV PRN ×2 (06:56→11:02)
[2021-09-10 07:01] LABS: Calcium 9.1 MG/DL (8.5-10.1); Osmolality,Calculated 270.4 MOS/KG (273-304); Potassium 3.9 MMOL/L (3.5-5.1)
[2021-09-10] MEDS: METHOCARBAMOL 500 MG TABLET PO SCH ×3 (08:48→21:42)
[2021-09-10] MEDS: SACUBITRIL/VALSARTAN 49-51 MG TABLET PO SCH ×2 (08:48→21:43)
[2021-09-10] MEDS: carvediloL 12.5 MG TABLET PO SCH ×2 (08:48→17:28)
[2021-09-10] MEDS: CALCIUM ACETATE 667 MG CAPSULE PO SCH ×3 (08:48→17:28)
[2021-09-10] MEDS: APIXABAN 2.5 MG TABLET PO SCH ×2 (14:14→21:43)
[2021-09-10] MEDS: ASPIRIN EC 81 MG TABLET PO SCH (14:15)
[2021-09-10] MEDS: PANTOPRAZOLE 40 MG TABLET PO SCH (14:15)
[2021-09-10] MEDS: CLOPIDOGREL 75 MG TABLET PO SCH (14:15)
[2021-09-10] MEDS: FERROUS SULFATE 325 MG TABLET PO SCH (14:15)
[2021-09-10] MEDS: FLUoxetine 20 MG CAPSULE PO SCH (14:15)
[2021-09-10] MEDS: FOLIC ACID 1 MG TABLET PO SCH (14:15)
[2021-09-10] MEDS: ATORVASTATIN 10 MG TABLET PO SCH (21:42)
[2021-09-11 05:04] LABS: Basophils % 0.3 % (0.0-0.8); Eosinophils # 0.1 10*3/uL (0.0-0.87); Eosinophils % 1.3 % (0.00-10.9); Hematocrit 23.7 VOL% (42.0-52.0); Hemoglobin 7.5 GM/DL (14.0-18.0); Immature Granulocytes % 1.3 %; Immature Granulocytes Absolute 0.09 #; Lymphocytes % 13.8 % (21.2-54.2); Mean Corpuscular HGB Conc 31.6 GM/DL (32-36); Mean Corpuscular Volume 92.2 FL (87-102); Mean Platelet Volume 9.7 FL (9.6-12.0); Monocytes % 12.8 % (1.7-12.7); Neutrophils % 70.5 % (38.7-73.9); Platelet Count 150 T/CUMM (130-400); Red Blood Count 2.57 MC/CUMM (3.8-5.5); Red Cell Distribution Width 15.8 % (9.3-17.3); White Blood Count 6.9 T/CUMM (4-12)
[2021-09-11 05:22] LABS: Calcium 9.1 MG/DL (8.5-10.1); Potassium 3.8 MMOL/L (3.5-5.1)
[2021-09-11] MEDS: CALCIUM ACETATE 667 MG CAPSULE PO SCH ×3 (10:13→16:11)
[2021-09-11] MEDS: ASPIRIN EC 81 MG TABLET PO SCH (10:13)
[2021-09-11] MEDS: CLOPIDOGREL 75 MG TABLET PO SCH (10:13)
[2021-09-11] MEDS: METHOCARBAMOL 500 MG TABLET PO SCH ×3 (10:13→21:45)
[2021-09-11] MEDS: carvediloL 12.5 MG TABLET PO SCH ×2 (10:13→16:11)
[2021-09-11] MEDS: APIXABAN 2.5 MG TABLET PO SCH ×2 (10:14→21:45)
[2021-09-11] MEDS: FOLIC ACID 1 MG TABLET PO SCH (10:14)
[2021-09-11] MEDS: FLUoxetine 20 MG CAPSULE PO SCH (10:14)
[2021-09-11] MEDS: SACUBITRIL/VALSARTAN 49-51 MG TABLET PO SCH ×2 (10:14→21:45)
[2021-09-11] MEDS: PANTOPRAZOLE 40 MG TABLET PO SCH (10:14)
[2021-09-11] MEDS: FERROUS SULFATE 325 MG TABLET PO SCH (10:14)
[2021-09-11] MEDS: ATORVASTATIN 10 MG TABLET PO SCH (21:45)
[2021-09-12 06:51] LABS: Basophils % 0.3 % (0.0-0.8); Eosinophils # 0.1 10*3/uL (0.0-0.87); Eosinophils % 1.3 % (0.00-10.9); Hematocrit 23.9 VOL% (42.0-52.0); Hemoglobin 7.6 GM/DL (14.0-18.0); Immature Granulocytes % 0.5 %; Immature Granulocytes Absolute 0.03 #; Lymphocytes # 0.7 10*3/uL (1.4-4.0); Lymphocytes % 10.4 % (21.2-54.2); Mean Corpuscular HGB Conc 31.8 GM/DL (32-36); Mean Platelet Volume 9.4 FL (9.6-12.0); Monocytes % 8.7 % (1.7-12.7); Neutrophils % 78.8 % (38.7-73.9); Platelet Count 153 T/CUMM (130-400); Red Blood Count 2.57 MC/CUMM (3.8-5.5); Red Cell Distribution Width 15.4 % (9.3-17.3); White Blood Count 6.4 T/CUMM (4-12)
[2021-09-12 07:15] LABS: Calcium 9.3 MG/DL (8.5-10.1); Osmolality,Calculated 274.1 MOS/KG (273-304); Potassium 4.1 MMOL/L (3.5-5.1)
[2021-09-12] MEDS: CALCIUM ACETATE 667 MG CAPSULE PO SCH ×3 (09:08→16:42)
[2021-09-12] MEDS: FOLIC ACID 1 MG TABLET PO SCH (09:09)
[2021-09-12] MEDS: traMADol 50 MG TABLET PO PRN (09:09)
[2021-09-12] MEDS: CLOPIDOGREL 75 MG TABLET PO SCH (09:09)
[2021-09-12] MEDS: ASPIRIN EC 81 MG TABLET PO SCH (09:09)
[2021-09-12] MEDS: carvediloL 12.5 MG TABLET PO SCH ×2 (09:09→16:42)
[2021-09-12] MEDS: FLUoxetine 20 MG CAPSULE PO SCH (09:09)
[2021-09-12] MEDS: APIXABAN 2.5 MG TABLET PO SCH ×2 (09:09→20:52)
[2021-09-12] MEDS: FERROUS SULFATE 325 MG TABLET PO SCH (09:09)
[2021-09-12] MEDS: METHOCARBAMOL 500 MG TABLET PO SCH ×3 (09:09→20:53)
[2021-09-12] MEDS: SACUBITRIL/VALSARTAN 49-51 MG TABLET PO SCH ×2 (09:10→20:53)
[2021-09-12] MEDS: PANTOPRAZOLE 40 MG TABLET PO SCH (09:10)
[2021-09-12] MEDS ORDERED: EPOETIN ALFA-EPBX 10,000 UNIT/ML VIAL IV PRN (10:33)
[2021-09-12] MEDS ORDERED: VANCOMYCIN INJ 750 MG in SODIUM CHLORIDE 0.9% 250 ML IV ONE (17:00)
[2021-09-12] MEDS: ATORVASTATIN 10 MG TABLET PO SCH (20:53)
[2021-09-13] MEDS: CALCIUM ACETATE 667 MG CAPSULE PO SCH ×2 (08:38→11:47)
[2021-09-13] MEDS: SACUBITRIL/VALSARTAN 49-51 MG TABLET PO SCH (08:38)
[2021-09-13] MEDS: FOLIC ACID 1 MG TABLET PO SCH (08:38)
[2021-09-13] MEDS: carvediloL 12.5 MG TABLET PO SCH (08:38)
[2021-09-13] MEDS: METHOCARBAMOL 500 MG TABLET PO SCH ×2 (08:38→15:06)
[2021-09-13] MEDS: FERROUS SULFATE 325 MG TABLET PO SCH (08:38)
[2021-09-13] MEDS: PANTOPRAZOLE 40 MG TABLET PO SCH (08:39)
[2021-09-13] MEDS: APIXABAN 2.5 MG TABLET PO SCH (08:39)
[2021-09-13] MEDS: FLUoxetine 20 MG CAPSULE PO SCH (08:39)
[2021-09-13] MEDS: ASPIRIN EC 81 MG TABLET PO SCH (08:39)
[2021-09-13] MEDS: CLOPIDOGREL 75 MG TABLET PO SCH (08:39)
[2021-09-13] MEDS: traMADol 50 MG TABLET PO PRN (08:40)
[2021-09-13 12:30] VITALS: BP 103/56
[2021-09-13] MEDS ORDERED: DESITIN 4OZ/NYSTATIN 15 GRAM MIXTURE PASTE TOP SCH (14:00)
== END 2021-09-13 15:06 | DRG 252 ==
LOC: EDUNIT# → EDBD → N.ED 23:07 → SUATTDRO 08-28 02:17 → N.EDINP 08-28 02:17 → N.TELES 08-28 04:10
PROVIDERS: ADMIT Internal Medicine; ATTEND Internal Medicine
PROC: VAVDCFI (2021-09-07 10:38)

== ENCOUNTER 2021-10-16 18:24 | Observation (INO) ==
[2021-10-16] MEDS ORDERED: PANTOPRAZOLE 40 MG VIAL IV STA (18:57)
[2021-10-16] MEDS ORDERED: ONDANSETRON 4 MG/2 ML VIAL IV STA (18:57)
[2021-10-16 19:56] LABS: Basophils % 0.8 % (0.0-0.8); Eosinophils # 0.1 10*3/uL (0.0-0.87); Eosinophils % 1.5 % (0.00-10.9); Hematocrit 29.8 VOL% (42.0-52.0); Hemoglobin 9.1 GM/DL (14.0-18.0); Immature Granulocytes % 0.5 %; Immature Granulocytes Absolute 0.02 #; Lymphocytes # 1.2 10*3/uL (1.4-4.0); Lymphocytes % 30.4 % (21.2-54.2); Mean Corpuscular HGB Conc 30.5 GM/DL (32-36); Mean Corpuscular Volume 97.4 FL (87-102); Mean Platelet Volume 10.7 FL (9.6-12.0); Monocytes % 10.6 % (1.7-12.7); Neutrophils % 56.2 % (38.7-73.9); Platelet Count 131 T/CUMM (130-400); Red Blood Count 3.06 MC/CUMM (3.8-5.5); Red Cell Distribution Width 17.9 % (9.3-17.3)
[2021-10-16 20:09] LABS: Albumin 2.9 G/DL (3.4-5.0); Bilirubin,Total 0.8 MG/DL (0.20-1.00); Calcium 9.9 MG/DL (8.5-10.1); Potassium 3.2 MMOL/L (3.5-5.1); Total Protein 9.1 G/DL (6.4-8.2)
[2021-10-16 20:11] LABS: INR 1.2; PT Patient Result 13.3 SECS (10.5-12.0)
[2021-10-16] MEDS ORDERED: ONDANSETRON 4 MG/2 ML VIAL IV PRN (22:32)
[2021-10-16] MEDS ORDERED: GLUCAGON 1 MG VIAL IM PRN (22:32)
[2021-10-16] MEDS ORDERED: SIMETHICONE CHEW 125 MG TABLET PO PRN (22:32)
[2021-10-16] MEDS ORDERED: DEXTROSE 50% 25 GM/50 ML SYRINGE IV PRN (22:32)
[2021-10-16] MEDS ORDERED: ACETAMINOPHEN 325 MG TABLET PO PRN (22:32)
[2021-10-16] MEDS ORDERED: hydrALAZINE 20 MG/1 ML VIAL IV PRN (22:32)
[2021-10-16] MEDS ORDERED: CHOLESTYRAMINE 4 GM PACK PO PRN (22:53)
[2021-10-17] MEDS: PANTOPRAZOLE 40 MG VIAL IV SCH ×4 (00:07→20:45)
[2021-10-17] MEDS: ATORVASTATIN 10 MG TABLET PO SCH ×3 (01:00→20:45)
[2021-10-17] MEDS: carvediloL 12.5 MG TABLET PO SCH ×4 (01:00→20:45)
[2021-10-17] MEDS: SACUBITRIL/VALSARTAN 49-51 MG TABLET PO SCH ×4 (01:00→20:45)
[2021-10-17 02:43] LABS: Hematocrit 25.2 VOL% (42.0-52.0); Hemoglobin 7.7 GM/DL (14.0-18.0)
[2021-10-17 05:59] LABS: Basophils % 0.8 % (0.0-0.8); Eosinophils # 0.1 10*3/uL (0.0-0.87); Eosinophils % 2.6 % (0.00-10.9); Hematocrit 24.9 VOL% (42.0-52.0); Hemoglobin 7.5 GM/DL (14.0-18.0); Immature Granulocytes % 0.5 %; Immature Granulocytes Absolute 0.02 #; Lymphocytes # 1.1 10*3/uL (1.4-4.0); Lymphocytes % 29.6 % (21.2-54.2); Mean Corpuscular HGB Conc 30.1 GM/DL (32-36); Mean Corpuscular Volume 98.8 FL (87-102); Mean Platelet Volume 10.5 FL (9.6-12.0); Monocytes % 13.5 % (1.7-12.7); Platelet Count 127 T/CUMM (130-400); Red Blood Count 2.52 MC/CUMM (3.8-5.5); Red Cell Distribution Width 18.1 % (9.3-17.3); White Blood Count 3.8 T/CUMM (4-12)
[2021-10-17 06:35] LABS: INR 1.2; PT Patient Result 13.2 SECS (10.5-12.0)
[2021-10-17 06:46] LABS: Albumin 2.8 G/DL (3.4-5.0); Bilirubin,Total 0.7 MG/DL (0.20-1.00); Calcium 9.6 MG/DL (8.5-10.1); Osmolality,Calculated 271.2 MOS/KG (273-304); Potassium 2.9 MMOL/L (3.5-5.1); Total Protein 8.5 G/DL (6.4-8.2)
[2021-10-17] MEDS: CALCIUM ACETATE 667 MG CAPSULE PO SCH ×3 (08:02→16:30)
[2021-10-17] MEDS: FLUoxetine 20 MG CAPSULE PO SCH (08:03)
[2021-10-17] MEDS ORDERED: FERROUS SULFATE 325 MG TABLET PO SCH (09:00)
[2021-10-17] MEDS ORDERED: METHOCARBAMOL 500 MG TABLET PO SCH (09:00)
[2021-10-17] MEDS ORDERED: FOLIC ACID 1 MG TABLET PO SCH (09:00)
[2021-10-17 11:09] LABS: Hematocrit 24.4 VOL% (42.0-52.0); Hemoglobin 7.4 GM/DL (14.0-18.0)
[2021-10-17 16:05] LABS: Hematocrit 24.9 VOL% (42.0-52.0); Hemoglobin 7.6 GM/DL (14.0-18.0)
[2021-10-17] MEDS ORDERED: HEPARIN 10,000 UNIT/10 ML VIAL IV ONE (17:15)
[2021-10-17] MEDS ORDERED: POTASSIUM CHLORIDE 20 MEQ TABLET PO ONE (18:30)
[2021-10-18 05:28] LABS: INR 1.2; PT Patient Result 13.1 SECS (10.5-12.0)
[2021-10-18 07:50] VITALS: BP 125/70
[2021-10-18] MEDS: FLUoxetine 20 MG CAPSULE PO SCH (09:19)
[2021-10-18] MEDS: CALCIUM ACETATE 667 MG CAPSULE PO SCH (09:19)
[2021-10-18] MEDS: SACUBITRIL/VALSARTAN 49-51 MG TABLET PO SCH (09:19)
[2021-10-18] MEDS: carvediloL 12.5 MG TABLET PO SCH (09:19)
[2021-10-18] MEDS ORDERED: POLYETHYLENE GLYCOL POWDER 17 GM PACK PO SCH (10:12)
[2021-10-18] MEDS: PANTOPRAZOLE 40 MG VIAL IV SCH (10:20)
== END 2021-10-18 10:49 | disposition home or self-care (01) ==
LOC: EDBD → EDUNIT# → N.ED 18:24 → N.EDINP 18:24 → N.3E 10-17 01:26
PROVIDERS: ADMIT Internal Medicine Geriatric Medicine; ATTEND Internal Medicine Geriatric Medicine

== ENCOUNTER 2021-12-09 12:28 | Inpatient (IN) ==
[2021-12-09 13:05] LABS: Basophils % 0.3 % (0.0-0.8); Hematocrit 29.1 VOL% (42.0-52.0); Hemoglobin 9.2 GM/DL (14.0-18.0); Immature Granulocytes % 0.6 %; Immature Granulocytes Absolute 0.02 #; Lymphocytes # 0.4 10*3/uL (1.4-4.0); Lymphocytes % 10.9 % (21.2-54.2); Mean Corpuscular HGB Conc 31.6 GM/DL (32-36); Mean Corpuscular Volume 97.3 FL (87-102); Mean Platelet Volume 10.1 FL (9.6-12.0); Monocytes % 9.7 % (1.7-12.7); Neutrophils % 78.5 % (38.7-73.9); Platelet Count 113 T/CUMM (130-400); Red Blood Count 2.99 MC/CUMM (3.8-5.5); Red Cell Distribution Width 15.2 % (9.3-17.3); White Blood Count 3.3 T/CUMM (4-12)
[2021-12-09 13:17] LABS: Albumin 3.1 G/DL (3.4-5.0); Bilirubin,Total 0.7 MG/DL (0.20-1.00); Calcium 8.5 MG/DL (8.5-10.1); Osmolality,Calculated 272.7 MOS/KG (273-304); Total Protein 7.7 G/DL (6.4-8.2)
[2021-12-09 13:19] LABS: Potassium 2.4 MMOL/L (3.5-5.1)
[2021-12-09 13:26] LABS: INR 1.2; PT Patient Result 13.2 SECS (10.5-12.0)
[2021-12-09 13:29] LABS: Partial Thromboplastin Time 131.8 SECS (23.8-32.1)
[2021-12-09 14:07] LABS: Platelet Estimate Adequate
[2021-12-09] MEDS ORDERED: DEXTROSE 10% 25 GM/250 ML BAG IV PRN (16:13)
[2021-12-09] MEDS ORDERED: POTASSIUM CHLORIDE 20 MEQ TABLET PO STA (16:13)
[2021-12-09] MEDS ORDERED: hydrALAZINE 20 MG/1 ML VIAL IV PRN (16:13)
[2021-12-09] MEDS ORDERED: GLUCAGON 1 MG VIAL IM PRN (16:13)
[2021-12-09] MEDS ORDERED: FLUTICASONE 50 MCG NASAL SPRAY 16 GM BOTTLE BOTH NARES PRN (16:21)
[2021-12-09] MEDS: carvediloL 25 MG TABLET PO SCH (21:33)
[2021-12-09] MEDS: SACUBITRIL/VALSARTAN 49-51 MG TABLET PO SCH (21:33)
[2021-12-10 05:48] LABS: Basophils % 0.7 % (0.0-0.8); Eosinophils % 0.3 % (0.00-10.9); Hematocrit 28.1 VOL% (42.0-52.0); Hemoglobin 8.7 GM/DL (14.0-18.0); Immature Granulocytes % 0.7 %; Immature Granulocytes Absolute 0.02 #; Lymphocytes # 0.6 10*3/uL (1.4-4.0); Lymphocytes % 18.2 % (21.2-54.2); Mean Corpuscular Volume 97.2 FL (87-102); Mean Platelet Volume 10.6 FL (9.6-12.0); Monocytes % 12.3 % (1.7-12.7); Neutrophils % 67.8 % (38.7-73.9); Platelet Count 100 T/CUMM (130-400); Red Blood Count 2.89 MC/CUMM (3.8-5.5); Red Cell Distribution Width 15.4 % (9.3-17.3)
[2021-12-10 06:13] LABS: Anisocytosis 1+; Band Neutrophils 12 % (0-10); Eosinophils 1 % (0-10); Lymphocytes 13 % (20-55); Macrocytosis Slight; Platelet Estimate Adequate; Segmented Neutrophils 60 % (50-85); Total Cells Counted 100
[2021-12-10 06:22] LABS: Albumin 2.8 G/DL (3.4-5.0); Bilirubin,Total 0.8 MG/DL (0.20-1.00); Calcium 9.2 MG/DL (8.5-10.1); Osmolality,Calculated 268.2 MOS/KG (273-304); Potassium 2.6 MMOL/L (3.5-5.1); Total Protein 7.1 G/DL (6.4-8.2)
[2021-12-10] MEDS ORDERED: POTASSIUM CHLORIDE 20 MEQ TABLET PO PRN (07:03)
[2021-12-10] MEDS: SEVELAMER CARBONATE 800 MG TABLET PO SCH ×4 (08:03→16:02)
[2021-12-10] MEDS: SACUBITRIL/VALSARTAN 49-51 MG TABLET PO SCH ×2 (08:32→20:41)
[2021-12-10] MEDS: carvediloL 25 MG TABLET PO SCH ×2 (08:33→20:41)
[2021-12-10] MEDS: FLUoxetine 20 MG CAPSULE PO SCH (08:33)
[2021-12-10] MEDS: CLOPIDOGREL 75 MG TABLET PO SCH (08:34)
[2021-12-10] MEDS: ATORVASTATIN 40 MG TABLET PO SCH (08:34)
[2021-12-10] MEDS: APIXABAN 2.5 MG TABLET PO SCH ×2 (08:34→20:41)
[2021-12-10] MEDS: ACETAMINOPHEN 325 MG TABLET PO PRN (08:34)
[2021-12-10] MEDS ORDERED: ASPIRIN EC 325 MG TABLET PO SCH (09:00)
[2021-12-10] MEDS ORDERED: NITROGLYCERIN SL 0.4 MG TABLET SL PRN (12:05)
[2021-12-10] MEDS ORDERED: POTASSIUM CHLORIDE 20 MEQ TABLET PO ONE (12:23)
[2021-12-10] MEDS ORDERED: VANCOMYCIN INJ 500 MG in SODIUM CHLORIDE 0.9% 100 ML IV PRN (13:08)
[2021-12-10] MEDS ORDERED: VANCOMYCIN INJ 2,000 MG in SODIUM CHLORIDE 0.9% 500 ML IV ONE (15:00)
[2021-12-11] MEDS: ACETAMINOPHEN 325 MG TABLET PO PRN ×3 (00:10→20:52)
[2021-12-11 05:17] LABS: Basophils % 0.3 % (0.0-0.8); Eosinophils % 0.9 % (0.00-10.9); Hematocrit 27.1 VOL% (42.0-52.0); Hemoglobin 8.5 GM/DL (14.0-18.0); Immature Granulocytes % 0.3 %; Immature Granulocytes Absolute 0.01 #; Lymphocytes # 0.6 10*3/uL (1.4-4.0); Lymphocytes % 18.2 % (21.2-54.2); Mean Corpuscular HGB Conc 31.4 GM/DL (32-36); Mean Corpuscular Volume 96.4 FL (87-102); Mean Platelet Volume 10.5 FL (9.6-12.0); Neutrophils % 63.3 % (38.7-73.9); Platelet Count 92 T/CUMM (130-400); Red Blood Count 2.81 MC/CUMM (3.8-5.5); White Blood Count 3.2 T/CUMM (4-12)
[2021-12-11 05:31] LABS: Calcium 8.4 MG/DL (8.5-10.1); Osmolality,Calculated 271.4 MOS/KG (273-304); Potassium 2.9 MMOL/L (3.5-5.1)
[2021-12-11 05:47] LABS: Anisocytosis 1+; Band Neutrophils 18 % (0-10); Eosinophils 2 % (0-10); Lymphocytes 19 % (20-55); Platelet Estimate Decreased; Segmented Neutrophils 48 % (50-85); Total Cells Counted 100
[2021-12-11 05:48] LABS: Burr Cells Few; Macrocytosis 1+; Ovalocytes Few; Tear Drop Cells Few
[2021-12-11] MEDS ORDERED: ASPIRIN EC 81 MG TABLET PO SCH (09:00)
[2021-12-11] MEDS: SACUBITRIL/VALSARTAN 49-51 MG TABLET PO SCH ×2 (09:02→20:52)
[2021-12-11] MEDS: CLOPIDOGREL 75 MG TABLET PO SCH (09:02)
[2021-12-11] MEDS: ATORVASTATIN 40 MG TABLET PO SCH (09:02)
[2021-12-11] MEDS: carvediloL 25 MG TABLET PO SCH ×2 (09:02→20:52)
[2021-12-11] MEDS: APIXABAN 2.5 MG TABLET PO SCH ×2 (09:02→20:52)
[2021-12-11] MEDS: FLUoxetine 20 MG CAPSULE PO SCH (09:04)
[2021-12-11] MEDS: SEVELAMER CARBONATE 800 MG TABLET PO SCH ×3 (09:04→16:17)
[2021-12-11] MEDS ORDERED: POTASSIUM CHLORIDE 20 MEQ TABLET PO ONE ×2 (13:49)
[2021-12-11] MEDS ORDERED: EPOETIN ALFA-EPBX 10,000 UNIT/ML VIAL IV PRN (14:00)
[2021-12-11] MEDS ORDERED: ONDANSETRON 4 MG/2 ML VIAL IV PRN (15:35)
[2021-12-11] MEDS ORDERED: VANCOMYCIN INJ 1,000 MG in SODIUM CHLORIDE 0.9% 250 ML IV SCH (23:45)
[2021-12-11] MEDS ORDERED: SODIUM CHLORIDE 0.9% 500 ML IV ONE (23:59)
[2021-12-12 05:56] LABS: Basophils % 0.2 % (0.0-0.8); Hematocrit 26.4 VOL% (42.0-52.0); Hemoglobin 8.4 GM/DL (14.0-18.0); Immature Granulocytes % 0.8 %; Immature Granulocytes Absolute 0.04 #; Lymphocytes # 0.7 10*3/uL (1.4-4.0); Mean Corpuscular HGB Conc 31.8 GM/DL (32-36); Mean Platelet Volume 10.8 FL (9.6-12.0); Monocytes % 19.2 % (1.7-12.7); Neutrophils % 65.8 % (38.7-73.9); Platelet Count 79 T/CUMM (130-400); Red Blood Count 2.75 MC/CUMM (3.8-5.5); Red Cell Distribution Width 15.4 % (9.3-17.3); White Blood Count 4.8 T/CUMM (4-12)
[2021-12-12 06:17] LABS: Calcium 8.5 MG/DL (8.5-10.1); Osmolality,Calculated 277.2 MOS/KG (273-304); Potassium 3.1 MMOL/L (3.5-5.1)
[2021-12-12 06:27] LABS: Hypochromia 1+; Lymphocytes 20 % (20-55); Microcytosis 1+; Platelet Estimate Decreased; Segmented Neutrophils 70 % (50-85); Total Cells Counted 100
[2021-12-12] MEDS: FLUoxetine 20 MG CAPSULE PO SCH (08:52)
[2021-12-12] MEDS: SEVELAMER CARBONATE 800 MG TABLET PO SCH ×4 (08:52→16:52)
[2021-12-12] MEDS: ATORVASTATIN 40 MG TABLET PO SCH (08:52)
[2021-12-12] MEDS: APIXABAN 2.5 MG TABLET PO SCH ×2 (08:58→20:56)
[2021-12-12] MEDS: SACUBITRIL/VALSARTAN 49-51 MG TABLET PO SCH ×2 (08:58→20:55)
[2021-12-12] MEDS: carvediloL 25 MG TABLET PO SCH ×2 (08:58→20:55)
[2021-12-12] MEDS: CLOPIDOGREL 75 MG TABLET PO SCH (08:59)
[2021-12-12] MEDS ORDERED: HEPARIN 10,000 UNIT/10 ML VIAL IV PRN (10:19)
[2021-12-12] MEDS ORDERED: LIDOCAINE 1% 20 ML VIAL MISC INJ ONE (11:27)
[2021-12-12] MEDS ORDERED: VANCOMYCIN INJ 500 MG in SODIUM CHLORIDE 0.9% 100 ML IV ONE (17:00)
[2021-12-13 05:14] LABS: Basophils % 0.3 % (0.0-0.8); Eosinophils % 1.2 % (0.00-10.9); Hematocrit 28.6 VOL% (42.0-52.0); Hemoglobin 8.9 GM/DL (14.0-18.0); Immature Granulocytes % 0.3 %; Immature Granulocytes Absolute 0.01 #; Lymphocytes % 27.4 % (21.2-54.2); Mean Corpuscular HGB Conc 31.1 GM/DL (32-36); Mean Corpuscular Volume 97.6 FL (87-102); Mean Platelet Volume 11.8 FL (9.6-12.0); Monocytes % 17.9 % (1.7-12.7); Neutrophils % 52.9 % (38.7-73.9); Platelet Count 93 T/CUMM (130-400); Red Blood Count 2.93 MC/CUMM (3.8-5.5); Red Cell Distribution Width 15.4 % (9.3-17.3); White Blood Count 3.5 T/CUMM (4-12)
[2021-12-13 05:30] LABS: Calcium 8.4 MG/DL (8.5-10.1); Osmolality,Calculated 273.1 MOS/KG (273-304); Potassium 3.1 MMOL/L (3.5-5.1)
[2021-12-13 06:07] LABS: Band Neutrophils 1 % (0-10); Eosinophils 2 % (0-10); Hypochromia Slight; Lymphocytes 21 % (20-55); Microcytosis 1+; Ovalocytes Slight; Segmented Neutrophils 61 % (50-85); Total Cells Counted 100
[2021-12-13 06:08] LABS: Platelet Estimate Decreased
[2021-12-13] MEDS ORDERED: MAGNESIUM SULF RIDER 2 GM/50 ML PREMIX IV ONE (07:45)
[2021-12-13] MEDS ORDERED: POTASSIUM CHLORIDE 10 MEQ TABLET PO ONE (07:45)
[2021-12-13] MEDS: APIXABAN 2.5 MG TABLET PO SCH ×2 (09:32→20:28)
[2021-12-13] MEDS: SEVELAMER CARBONATE 800 MG TABLET PO SCH ×3 (09:32→18:18)
[2021-12-13] MEDS: ATORVASTATIN 40 MG TABLET PO SCH (09:32)
[2021-12-13] MEDS: CLOPIDOGREL 75 MG TABLET PO SCH (09:32)
[2021-12-13] MEDS: FLUoxetine 20 MG CAPSULE PO SCH (10:24)
[2021-12-13] MEDS: SACUBITRIL/VALSARTAN 49-51 MG TABLET PO SCH ×2 (12:37→20:28)
[2021-12-13] MEDS: carvediloL 25 MG TABLET PO SCH ×2 (12:37→20:29)
[2021-12-14 04:42] LABS: Basophils % 0.3 % (0.0-0.8); Eosinophils # 0.1 10*3/uL (0.0-0.87); Eosinophils % 2.2 % (0.00-10.9); Immature Granulocytes % 0.6 %; Immature Granulocytes Absolute 0.02 #; Lymphocytes # 1.1 10*3/uL (1.4-4.0); Lymphocytes % 34.4 % (21.2-54.2); Mean Corpuscular Volume 96.3 FL (87-102); Mean Platelet Volume 11.4 FL (9.6-12.0); Monocytes % 13.1 % (1.7-12.7); Neutrophils % 49.4 % (38.7-73.9); Platelet Count 115 T/CUMM (130-400); Red Blood Count 3.01 MC/CUMM (3.8-5.5); Red Cell Distribution Width 15.3 % (9.3-17.3); White Blood Count 3.2 T/CUMM (4-12)
[2021-12-14 04:58] LABS: Calcium 8.4 MG/DL (8.5-10.1); Osmolality,Calculated 277.8 MOS/KG (273-304); Potassium 3.3 MMOL/L (3.5-5.1)
[2021-12-14 05:10] LABS: Eosinophils 3 % (0-10); Lymphocytes 23 % (20-55); Segmented Neutrophils 59 % (50-85); Total Cells Counted 100
[2021-12-14 05:11] LABS: Hypochromia Slight; Microcytosis 1+; Ovalocytes Slight; Platelet Estimate Adequate
[2021-12-14] MEDS: FLUoxetine 20 MG CAPSULE PO SCH (09:53)
[2021-12-14] MEDS: APIXABAN 2.5 MG TABLET PO SCH (09:53)
[2021-12-14] MEDS: carvediloL 25 MG TABLET PO SCH ×2 (09:53→20:31)
[2021-12-14] MEDS: ATORVASTATIN 40 MG TABLET PO SCH (09:53)
[2021-12-14] MEDS: SACUBITRIL/VALSARTAN 49-51 MG TABLET PO SCH ×2 (09:53→20:32)
[2021-12-14] MEDS: CLOPIDOGREL 75 MG TABLET PO SCH (09:53)
[2021-12-14] MEDS: SEVELAMER CARBONATE 800 MG TABLET PO SCH ×3 (10:06→17:19)
[2021-12-14] MEDS ORDERED: APIXABAN 2.5 MG TABLET PO ONE (10:52)
[2021-12-14] MEDS ORDERED: APIXABAN 5 MG TABLET PO SCH (21:00)
[2021-12-15 06:20] LABS: Basophils % 0.6 % (0.0-0.8); Eosinophils # 0.1 10*3/uL (0.0-0.87); Eosinophils % 2.5 % (0.00-10.9); Hematocrit 30.9 VOL% (42.0-52.0); Hemoglobin 9.6 GM/DL (14.0-18.0); Immature Granulocytes % 0.6 %; Immature Granulocytes Absolute 0.02 #; Lymphocytes # 1.4 10*3/uL (1.4-4.0); Lymphocytes % 38.6 % (21.2-54.2); Mean Corpuscular HGB Conc 31.1 GM/DL (32-36); Mean Corpuscular Volume 96.3 FL (87-102); Mean Platelet Volume 11.3 FL (9.6-12.0); Monocytes % 11.3 % (1.7-12.7); Neutrophils % 46.4 % (38.7-73.9); Platelet Count 152 T/CUMM (130-400); Red Blood Count 3.21 MC/CUMM (3.8-5.5); Red Cell Distribution Width 15.2 % (9.3-17.3); White Blood Count 3.6 T/CUMM (4-12)
[2021-12-15 06:27] LABS: INR 1.1; PT Patient Result 12.4 SECS (10.5-12.0)
[2021-12-15 06:48] LABS: Anisocytosis 1+; Atypical Lymphocytes Few; Eosinophils 3 % (0-10); Lymphocytes 41 % (20-55); Microcytosis 1+; Segmented Neutrophils 44 % (50-85); Total Cells Counted 100
[2021-12-15 06:49] LABS: Platelet Estimate Adequate
[2021-12-15 07:10] LABS: Calcium 8.9 MG/DL (8.5-10.1); Osmolality,Calculated 274.1 MOS/KG (273-304); Potassium 3.2 MMOL/L (3.5-5.1)
[2021-12-15] MEDS ORDERED: ASPIRIN EC 81 MG TABLET PO SCH (09:00)
[2021-12-15] MEDS ORDERED: fentaNYL 100 MCG/2 ML VIAL IV ONE (10:00)
[2021-12-15] MEDS ORDERED: SODIUM CHLORIDE 0.45% 1,000 ML IV SCH (10:00)
[2021-12-15] MEDS ORDERED: MIDAZOLAM 10 MG/2 ML VIAL IV ONE (10:00)
[2021-12-15] MEDS ORDERED: HEPARIN LOCK FLUSH 500 UNIT/5 ML SYRINGE IV ONE (10:47)
[2021-12-15] MEDS: SEVELAMER CARBONATE 800 MG TABLET PO SCH ×3 (12:04→17:10)
[2021-12-15] MEDS ORDERED: MIDAZOLAM 2 MG/2 ML VIAL ONE (12:08)
[2021-12-15] MEDS ORDERED: TISSUE ADHESIVE 1 EACH APPLICATOR TOP ONE (12:57)
[2021-12-15] MEDS: SACUBITRIL/VALSARTAN 49-51 MG TABLET PO SCH ×2 (14:29→20:49)
[2021-12-15] MEDS: FLUoxetine 20 MG CAPSULE PO SCH (14:29)
[2021-12-15] MEDS: carvediloL 25 MG TABLET PO SCH ×2 (14:29→20:49)
[2021-12-15] MEDS ORDERED: HEPARIN LOCK FLUSH 500 UNIT/5 ML SYRINGE IV PRN (16:36)
[2021-12-16 07:55] LABS: Basophils % 0.3 % (0.0-0.8); Eosinophils # 0.1 10*3/uL (0.0-0.87); Hematocrit 28.5 VOL% (42.0-52.0); Immature Granulocytes % 1.3 %; Immature Granulocytes Absolute 0.05 #; Lymphocytes # 1.6 10*3/uL (1.4-4.0); Lymphocytes % 40.1 % (21.2-54.2); Mean Corpuscular HGB Conc 31.6 GM/DL (32-36); Mean Corpuscular Volume 95.6 FL (87-102); Mean Platelet Volume 10.9 FL (9.6-12.0); Monocytes % 10.7 % (1.7-12.7); Neutrophils % 45.6 % (38.7-73.9); Platelet Count 163 T/CUMM (130-400); Red Blood Count 2.98 MC/CUMM (3.8-5.5); Red Cell Distribution Width 15.3 % (9.3-17.3); White Blood Count 3.9 T/CUMM (4-12)
[2021-12-16 08:12] LABS: Calcium 8.7 MG/DL (8.5-10.1); Osmolality,Calculated 272.4 MOS/KG (273-304); Potassium 3.9 MMOL/L (3.5-5.1)
[2021-12-16] MEDS: carvediloL 25 MG TABLET PO SCH (09:03)
[2021-12-16] MEDS: SACUBITRIL/VALSARTAN 49-51 MG TABLET PO SCH (09:03)
[2021-12-16] MEDS: SEVELAMER CARBONATE 800 MG TABLET PO SCH ×2 (09:03→15:36)
[2021-12-16] MEDS: FLUoxetine 20 MG CAPSULE PO SCH (09:03)
[2021-12-16 09:25] VITALS: BP 112/71
== END 2021-12-16 15:47 | disposition home or self-care (01) | DRG 314 ==
LOC: EDBD → EDUNIT# → N.ED 12:28 → N.TELEN 12:28 → SUATTDRO 12-10 13:02
PROVIDERS: ADMIT Internal Medicine; ATTEND Internal Medicine
PROC: IRFLCVC (2021-12-15 11:05)

== ENCOUNTER 2022-01-17 10:39 | Inpatient (IN) ==
[2022-01-17] MEDS ORDERED: ASPIRIN 325 MG TABLET PO STA (10:50)
[2022-01-17 11:49] LABS: Basophils % 0.2 % (0.0-0.8); Eosinophils % 0.6 % (0.00-10.9); Hematocrit 29.8 VOL% (42.0-52.0); Hemoglobin 9.2 GM/DL (14.0-18.0); Immature Granulocytes % 0.6 %; Immature Granulocytes Absolute 0.03 #; Lymphocytes # 0.9 10*3/uL (1.4-4.0); Lymphocytes % 18.2 % (21.2-54.2); Mean Corpuscular HGB Conc 30.9 GM/DL (32-36); Mean Corpuscular Volume 96.4 FL (87-102); Mean Platelet Volume 10.9 FL (9.6-12.0); Neutrophils % 70.4 % (38.7-73.9); Platelet Count 159 T/CUMM (130-400); Red Blood Count 3.09 MC/CUMM (3.8-5.5); Red Cell Distribution Width 15.9 % (9.3-17.3); White Blood Count 4.9 T/CUMM (4-12)
[2022-01-17 12:02] LABS: Calcium 8.6 MG/DL (8.5-10.1); Osmolality,Calculated 271.1 MOS/KG (273-304); Potassium 3.4 MMOL/L (3.5-5.1)
[2022-01-17 12:08] LABS: INR 1.1; PT Patient Result 12.2 SECS (10.5-12.0); Partial Thromboplastin Time 29.1 SECS (23.8-32.1)
[2022-01-17] MEDS ORDERED: GLUCAGON 1 MG VIAL IM PRN (13:24)
[2022-01-17] MEDS ORDERED: ACETAMINOPHEN 325 MG TABLET PO PRN (13:24)
[2022-01-17] MEDS ORDERED: ONDANSETRON 4 MG/2 ML VIAL IV PRN (13:24)
[2022-01-17] MEDS ORDERED: hydrALAZINE 20 MG/1 ML VIAL IV PRN (13:24)
[2022-01-17] MEDS ORDERED: LACTULOSE 20 GM/30 ML UDCUP PO PRN (13:24)
[2022-01-17] MEDS ORDERED: DOCUSATE SODIUM 100 MG CAPSULE PO PRN (13:24)
[2022-01-17] MEDS ORDERED: ALUMINUM/MAGNES/SIMETH MAX STR 30 ML UDCUP PO PRN (13:24)
[2022-01-17] MEDS ORDERED: GABAPENTIN 100 MG CAPSULE PO ONE (13:31)
[2022-01-17] MEDS ORDERED: NITROGLYCERIN SL 0.4 MG TABLET SL PRN (13:40)
[2022-01-17] MEDS ORDERED: FLUTICASONE 50 MCG NASAL SPRAY 16 GM BOTTLE BOTH NARES PRN (13:40)
[2022-01-17] MEDS ORDERED: MORPHINE 4 MG/1 ML VIAL ONE ×2 (13:43→14:53)
[2022-01-17] MEDS: MORPHINE 2 MG/1 ML SYRINGE IV PRN ×3 (13:59→22:04)
[2022-01-17] MEDS ORDERED: DEXTROSE 10% 250 ML BAG IV PRN (14:01)
[2022-01-17] MEDS ORDERED: MORPHINE 2 MG/1 ML SYRINGE IV STA (15:00)
[2022-01-17] MEDS ORDERED: ENOXAPARIN 100 MG/ML SYRINGE SUBCUT STA (15:09)
[2022-01-17] MEDS ORDERED: VANCOMYCIN INJ 500 MG in SODIUM CHLORIDE 0.9% 250 ML IV PRN (15:47)
[2022-01-17] MEDS: INSULIN LISPRO 100 UNIT/ML SUBCUT SCH (16:53)
[2022-01-17] MEDS: SEVELAMER CARBONATE 800 MG TABLET PO SCH ×2 (17:26→18:03)
[2022-01-17] MEDS ORDERED: APIXABAN 5 MG TABLET PO SCH (21:00)
[2022-01-17] MEDS ORDERED: APIXABAN 2.5 MG TABLET PO SCH (21:00)
[2022-01-17] MEDS: SACUBITRIL/VALSARTAN 49-51 MG TABLET PO SCH (21:49)
[2022-01-17] MEDS: ATORVASTATIN 40 MG TABLET PO SCH (21:49)
[2022-01-17] MEDS: carvediloL 25 MG TABLET PO SCH (21:49)
[2022-01-18] MEDS: INSULIN LISPRO 100 UNIT/ML SUBCUT SCH ×5 (03:39→22:09)
[2022-01-18 05:09] LABS: Basophils % 0.3 % (0.0-0.8); Eosinophils % 0.3 % (0.00-10.9); Hematocrit 25.9 VOL% (42.0-52.0); Hemoglobin 8.2 GM/DL (14.0-18.0); Immature Granulocytes % 0.9 %; Immature Granulocytes Absolute 0.07 #; Lymphocytes % 13.6 % (21.2-54.2); Mean Corpuscular HGB Conc 31.7 GM/DL (32-36); Mean Corpuscular Volume 94.9 FL (87-102); Mean Platelet Volume 10.4 FL (9.6-12.0); Monocytes % 12.3 % (1.7-12.7); Neutrophils % 72.6 % (38.7-73.9); Platelet Count 159 T/CUMM (130-400); Red Blood Count 2.73 MC/CUMM (3.8-5.5); Red Cell Distribution Width 15.9 % (9.3-17.3); White Blood Count 7.5 T/CUMM (4-12)
[2022-01-18 05:52] LABS: Albumin 2.4 G/DL (3.4-5.0); Bilirubin,Total 1.1 MG/DL (0.20-1.00); Osmolality,Calculated 268.5 MOS/KG (273-304); Potassium 3.2 MMOL/L (3.5-5.1); Risk Ratio 5.52; Thyroid Stimulating Hormone 1.98 uIU/ml (0.358-3.74); Total Protein 6.6 G/DL (6.4-8.2); VLDL Cholesterol 17.4 MG/DL
[2022-01-18] MEDS ORDERED: POTASSIUM CHLORIDE 20 MEQ TABLET PO ONE (07:26)
[2022-01-18] MEDS ORDERED: DIAZEPAM 5 MG TABLET PO ONE (08:16)
[2022-01-18] MEDS ORDERED: diphenhydrAMINE CAP 25 MG CAPSULE PO ONE (08:16)
[2022-01-18] MEDS: ASPIRIN EC 81 MG TABLET PO SCH (08:21)
[2022-01-18] MEDS: PANTOPRAZOLE 40 MG TABLET PO SCH (08:22)
[2022-01-18] MEDS: carvediloL 25 MG TABLET PO SCH (08:22)
[2022-01-18] MEDS: SACUBITRIL/VALSARTAN 49-51 MG TABLET PO SCH ×2 (08:26→22:08)
[2022-01-18] MEDS ORDERED: CLOPIDOGREL 75 MG TABLET PO SCH (09:00)
[2022-01-18] MEDS: SEVELAMER CARBONATE 800 MG TABLET PO SCH ×3 (09:33→17:14)
[2022-01-18] MEDS: FLUoxetine 20 MG CAPSULE PO SCH (09:34)
[2022-01-18] MEDS ORDERED: MIDAZOLAM 2 MG/2 ML VIAL ONE (10:01)
[2022-01-18] MEDS ORDERED: HYDROmorphone 1 MG/1 ML SYRINGE ONE (10:02)
[2022-01-18] MEDS ORDERED: METOPROLOL SUCCINATE XL 25 MG TABLET PO ONE (11:21)
[2022-01-18] MEDS ORDERED: EPOETIN ALFA-EPBX 10,000 UNIT/ML VIAL IV PRN (13:10)
[2022-01-18] MEDS ORDERED: HEPARIN 10,000 UNIT/10 ML VIAL IV SCH (14:45)
[2022-01-18] MEDS: ATORVASTATIN 40 MG TABLET PO SCH (22:08)
[2022-01-18] MEDS: METOPROLOL SUCCINATE XL 25 MG TABLET PO SCH (22:08)
[2022-01-19 06:03] LABS: Basophils % 0.3 % (0.0-0.8); Eosinophils % 0.5 % (0.00-10.9); Hematocrit 26.3 VOL% (42.0-52.0); Hemoglobin 8.2 GM/DL (14.0-18.0); Immature Granulocytes % 0.8 %; Immature Granulocytes Absolute 0.06 #; Lymphocytes # 1.2 10*3/uL (1.4-4.0); Mean Corpuscular HGB Conc 31.2 GM/DL (32-36); Mean Corpuscular Volume 94.3 FL (87-102); Monocytes % 13.7 % (1.7-12.7); Neutrophils % 69.7 % (38.7-73.9); Platelet Count 179 T/CUMM (130-400); Red Blood Count 2.79 MC/CUMM (3.8-5.5); White Blood Count 7.9 T/CUMM (4-12)
[2022-01-19 06:24] LABS: Calcium 9.1 MG/DL (8.5-10.1); Osmolality,Calculated 270.2 MOS/KG (273-304); Potassium 3.4 MMOL/L (3.5-5.1)
[2022-01-19] MEDS: SEVELAMER CARBONATE 800 MG TABLET PO SCH ×3 (12:35→17:24)
[2022-01-19] MEDS: INSULIN LISPRO 100 UNIT/ML SUBCUT SCH ×4 (12:35→21:23)
[2022-01-19] MEDS: ASPIRIN EC 81 MG TABLET PO SCH (12:36)
[2022-01-19] MEDS: FLUoxetine 20 MG CAPSULE PO SCH (12:36)
[2022-01-19] MEDS: PANTOPRAZOLE 40 MG TABLET PO SCH (12:37)
[2022-01-19] MEDS: SACUBITRIL/VALSARTAN 49-51 MG TABLET PO SCH ×2 (12:37→21:04)
[2022-01-19] MEDS: MORPHINE 2 MG/1 ML SYRINGE IV PRN (12:38)
[2022-01-19] MEDS: METOPROLOL SUCCINATE XL 25 MG TABLET PO SCH ×2 (12:38→21:04)
[2022-01-19] MEDS: ATORVASTATIN 40 MG TABLET PO SCH (21:04)
[2022-01-20 04:56] LABS: Basophils % 0.3 % (0.0-0.8); Eosinophils # 0.1 10*3/uL (0.0-0.87); Eosinophils % 1.4 % (0.00-10.9); Hemoglobin 7.5 GM/DL (14.0-18.0); Immature Granulocytes % 0.9 %; Immature Granulocytes Absolute 0.06 #; Lymphocytes # 1.2 10*3/uL (1.4-4.0); Lymphocytes % 19.2 % (21.2-54.2); Mean Corpuscular HGB Conc 31.3 GM/DL (32-36); Mean Corpuscular Volume 94.1 FL (87-102); Mean Platelet Volume 10.3 FL (9.6-12.0); Monocytes % 13.1 % (1.7-12.7); Neutrophils % 65.1 % (38.7-73.9); Platelet Count 170 T/CUMM (130-400); Red Blood Count 2.55 MC/CUMM (3.8-5.5); Red Cell Distribution Width 15.8 % (9.3-17.3); White Blood Count 6.4 T/CUMM (4-12)
[2022-01-20 05:13] LABS: Calcium 8.5 MG/DL (8.5-10.1); Osmolality,Calculated 264.8 MOS/KG (273-304); Potassium 3.5 MMOL/L (3.5-5.1)
[2022-01-20] MEDS: SACUBITRIL/VALSARTAN 49-51 MG TABLET PO SCH ×2 (09:15→21:44)
[2022-01-20] MEDS: FLUoxetine 20 MG CAPSULE PO SCH (09:15)
[2022-01-20] MEDS: METOPROLOL SUCCINATE XL 25 MG TABLET PO SCH ×2 (09:15→21:44)
[2022-01-20] MEDS: PANTOPRAZOLE 40 MG TABLET PO SCH (09:15)
[2022-01-20] MEDS: ASPIRIN EC 81 MG TABLET PO SCH (09:15)
[2022-01-20] MEDS: SEVELAMER CARBONATE 800 MG TABLET PO SCH ×3 (09:16→16:37)
[2022-01-20] MEDS: INSULIN LISPRO 100 UNIT/ML SUBCUT SCH ×4 (09:17→20:27)
[2022-01-20] MEDS ORDERED: LIDOCAINE 2% 5 ML VIAL ONE (10:54)
[2022-01-20] MEDS ORDERED: ETOMIDATE 40 MG/20 ML VIAL IV ONE (10:54)
[2022-01-20] MEDS ORDERED: KETAMINE 500 MG/10 ML VIAL ONE (10:54)
[2022-01-20] MEDS ORDERED: propofoL 200 MG/20 ML VIAL IV ONE (10:54)
[2022-01-20] MEDS: ATORVASTATIN 40 MG TABLET PO SCH (21:44)
[2022-01-21 05:21] LABS: Basophils % 0.2 % (0.0-0.8); Eosinophils # 0.1 10*3/uL (0.0-0.87); Eosinophils % 2.5 % (0.00-10.9); Hematocrit 23.8 VOL% (42.0-52.0); Hemoglobin 7.4 GM/DL (14.0-18.0); Immature Granulocytes % 0.8 %; Immature Granulocytes Absolute 0.04 #; Lymphocytes % 21.3 % (21.2-54.2); Mean Corpuscular HGB Conc 31.1 GM/DL (32-36); Mean Corpuscular Volume 93.7 FL (87-102); Mean Platelet Volume 10.1 FL (9.6-12.0); Monocytes % 13.3 % (1.7-12.7); Neutrophils % 61.9 % (38.7-73.9); Platelet Count 178 T/CUMM (130-400); Red Blood Count 2.54 MC/CUMM (3.8-5.5); Red Cell Distribution Width 15.6 % (9.3-17.3); White Blood Count 4.8 T/CUMM (4-12)
[2022-01-21 05:49] LABS: Hypochromia 1+; Platelet Estimate Normal
[2022-01-21 05:53] LABS: Calcium 8.2 MG/DL (8.5-10.1); Osmolality,Calculated 263.1 MOS/KG (273-304); Potassium 3.7 MMOL/L (3.5-5.1)
[2022-01-21] MEDS: INSULIN LISPRO 100 UNIT/ML SUBCUT SCH ×3 (08:03→15:50)
[2022-01-21] MEDS: FLUoxetine 20 MG CAPSULE PO SCH (08:39)
[2022-01-21] MEDS: ASPIRIN EC 81 MG TABLET PO SCH (08:39)
[2022-01-21] MEDS: SEVELAMER CARBONATE 800 MG TABLET PO SCH ×3 (08:39→16:36)
[2022-01-21] MEDS: METOPROLOL SUCCINATE XL 25 MG TABLET PO SCH ×2 (08:41→20:54)
[2022-01-21] MEDS: SACUBITRIL/VALSARTAN 49-51 MG TABLET PO SCH ×2 (08:41→20:54)
[2022-01-21] MEDS: PANTOPRAZOLE 40 MG TABLET PO SCH ×2 (08:45→20:54)
[2022-01-21] MEDS: MORPHINE 2 MG/1 ML SYRINGE IV PRN ×2 (08:49→13:45)
[2022-01-21] MEDS: ATORVASTATIN 40 MG TABLET PO SCH (20:54)
[2022-01-22] MEDS: INSULIN LISPRO 100 UNIT/ML SUBCUT SCH ×3 (00:19→11:30)
[2022-01-22 04:27] LABS: Basophils % 0.4 % (0.0-0.8); Eosinophils # 0.1 10*3/uL (0.0-0.87); Eosinophils % 1.6 % (0.00-10.9); Hematocrit 25.5 VOL% (42.0-52.0); Hemoglobin 7.8 GM/DL (14.0-18.0); Immature Granulocytes % 0.8 %; Immature Granulocytes Absolute 0.04 #; Lymphocytes # 1.2 10*3/uL (1.4-4.0); Mean Corpuscular HGB Conc 30.6 GM/DL (32-36); Mean Corpuscular Volume 95.5 FL (87-102); Mean Platelet Volume 9.8 FL (9.6-12.0); Monocytes % 11.6 % (1.7-12.7); Neutrophils % 61.6 % (38.7-73.9); Platelet Count 211 T/CUMM (130-400); Red Blood Count 2.67 MC/CUMM (3.8-5.5); Red Cell Distribution Width 15.6 % (9.3-17.3); White Blood Count 4.9 T/CUMM (4-12)
[2022-01-22 04:52] LABS: Calcium 8.9 MG/DL (8.5-10.1); Osmolality,Calculated 266.4 MOS/KG (273-304); Potassium 3.8 MMOL/L (3.5-5.1)
[2022-01-22] MEDS: PANTOPRAZOLE 40 MG TABLET PO SCH ×2 (08:44→20:47)
[2022-01-22] MEDS: METOPROLOL SUCCINATE XL 25 MG TABLET PO SCH ×2 (08:44→20:46)
[2022-01-22] MEDS: ASPIRIN EC 81 MG TABLET PO SCH (08:44)
[2022-01-22] MEDS: SACUBITRIL/VALSARTAN 49-51 MG TABLET PO SCH ×2 (08:44→20:47)
[2022-01-22] MEDS: FLUoxetine 20 MG CAPSULE PO SCH (08:44)
[2022-01-22] MEDS: SEVELAMER CARBONATE 800 MG TABLET PO SCH ×3 (08:45→17:00)
[2022-01-22] MEDS: ATORVASTATIN 40 MG TABLET PO SCH (20:46)
[2022-01-23 05:07] LABS: Basophils % 0.3 % (0.0-0.8); Eosinophils # 0.1 10*3/uL (0.0-0.87); Eosinophils % 1.7 % (0.00-10.9); Hematocrit 26.4 VOL% (42.0-52.0); Hemoglobin 8.2 GM/DL (14.0-18.0); Immature Granulocytes % 0.6 %; Immature Granulocytes Absolute 0.04 #; Lymphocytes # 1.3 10*3/uL (1.4-4.0); Lymphocytes % 20.7 % (21.2-54.2); Mean Corpuscular HGB Conc 31.1 GM/DL (32-36); Mean Platelet Volume 9.5 FL (9.6-12.0); Monocytes % 11.1 % (1.7-12.7); Neutrophils % 65.6 % (38.7-73.9); Platelet Count 225 T/CUMM (130-400); Red Blood Count 2.81 MC/CUMM (3.8-5.5); Red Cell Distribution Width 15.5 % (9.3-17.3); White Blood Count 6.3 T/CUMM (4-12)
[2022-01-23 05:43] LABS: Calcium 8.9 MG/DL (8.5-10.1); Osmolality,Calculated 269.5 MOS/KG (273-304); Potassium 3.6 MMOL/L (3.5-5.1)
[2022-01-23] MEDS: SEVELAMER CARBONATE 800 MG TABLET PO SCH ×4 (08:34→17:29)
[2022-01-23] MEDS: MORPHINE 2 MG/1 ML SYRINGE IV PRN ×2 (08:50→17:23)
[2022-01-23] MEDS ORDERED: CHLORHEXIDINE 4% SOLN 118 ML BOTTLE TOP ONE (11:32)
[2022-01-23] MEDS: PANTOPRAZOLE 40 MG TABLET PO SCH ×2 (12:59→20:45)
[2022-01-23] MEDS: SACUBITRIL/VALSARTAN 49-51 MG TABLET PO SCH ×2 (12:59→20:45)
[2022-01-23] MEDS: FLUoxetine 20 MG CAPSULE PO SCH (12:59)
[2022-01-23] MEDS: ASPIRIN EC 81 MG TABLET PO SCH (13:00)
[2022-01-23] MEDS: METOPROLOL SUCCINATE XL 25 MG TABLET PO SCH ×2 (13:00→20:45)
[2022-01-23] MEDS: CHLORHEXIDINE 0.12% ORAL RINSE 60 ML BOTTLE SWISH/SPIT SCH (20:45)
[2022-01-23] MEDS: ATORVASTATIN 40 MG TABLET PO SCH (20:45)
[2022-01-23] MEDS: MUPIROCIN 2% OINT 22 GM TUBE TOP SCH (20:45)
[2022-01-24 05:14] LABS: Basophils % 0.4 % (0.0-0.8); Eosinophils # 0.1 10*3/uL (0.0-0.87); Eosinophils % 1.2 % (0.00-10.9); Hematocrit 27.9 VOL% (42.0-52.0); Hemoglobin 8.5 GM/DL (14.0-18.0); Immature Granulocytes % 0.7 %; Immature Granulocytes Absolute 0.05 #; Lymphocytes # 1.7 10*3/uL (1.4-4.0); Lymphocytes % 24.6 % (21.2-54.2); Mean Corpuscular HGB Conc 30.5 GM/DL (32-36); Mean Corpuscular Volume 94.3 FL (87-102); Mean Platelet Volume 9.6 FL (9.6-12.0); Monocytes % 12.7 % (1.7-12.7); Neutrophils % 60.4 % (38.7-73.9); Platelet Count 258 T/CUMM (130-400); Red Blood Count 2.96 MC/CUMM (3.8-5.5); Red Cell Distribution Width 15.4 % (9.3-17.3); White Blood Count 6.9 T/CUMM (4-12)
[2022-01-24 05:37] LABS: Calcium 9.2 MG/DL (8.5-10.1); Osmolality,Calculated 268.2 MOS/KG (273-304); Potassium 3.5 MMOL/L (3.5-5.1)
[2022-01-24] MEDS: SEVELAMER CARBONATE 800 MG TABLET PO SCH ×2 (08:58→11:47)
[2022-01-24] MEDS: PANTOPRAZOLE 40 MG TABLET PO SCH (08:58)
[2022-01-24] MEDS: ASPIRIN EC 81 MG TABLET PO SCH (08:58)
[2022-01-24] MEDS: FLUoxetine 20 MG CAPSULE PO SCH (08:58)
[2022-01-24] MEDS: SACUBITRIL/VALSARTAN 49-51 MG TABLET PO SCH (08:58)
[2022-01-24] MEDS: METOPROLOL SUCCINATE XL 25 MG TABLET PO SCH (08:58)
[2022-01-24] MEDS: CHLORHEXIDINE 0.12% ORAL RINSE 60 ML BOTTLE SWISH/SPIT SCH (09:00)
[2022-01-24] MEDS: MUPIROCIN 2% OINT 22 GM TUBE TOP SCH (09:05)
[2022-01-24 13:04] VITALS: BP 116/78
[2022-01-24] MEDS ORDERED: HYDROCORTISONE 25 MG SUPP RECTAL SCH (21:00)
[2022-01-25] MEDS ORDERED: POLYETHYLENE GLYCOL POWDER 17 GM PACK PO SCH (09:00)
== END 2022-01-24 17:31 | disposition home health service (06) | DRG 555 ==
LOC: EDUNIT# → EDBD → N.ED 10:39 → SUATTDRO 13:32 → N.EDINP 13:32 → N.TELES 16:01
PROVIDERS: ADMIT Internal Medicine; ATTEND Internal Medicine

== ENCOUNTER 2022-02-22 10:49 | Inpatient (IN) ==
[2022-02-22] MEDS ORDERED: ACETAMINOPHEN 500 MG TABLET ONE (11:12)
[2022-02-22] MEDS ORDERED: ACETAMINOPHEN 500 MG TABLET PO STA (11:15)
[2022-02-22] MEDS ORDERED: SODIUM CHLORIDE 0.9% 500 ML IV STA (11:24)
[2022-02-22 12:11] LABS: Basophils % 0.2 % (0.0-0.8); Eosinophils % 0.2 % (0.00-10.9); Hematocrit 34.9 VOL% (42.0-52.0); Hemoglobin 10.8 GM/DL (14.0-18.0); Immature Granulocytes % 0.9 %; Immature Granulocytes Absolute 0.05 #; Lymphocytes # 0.8 10*3/uL (1.4-4.0); Lymphocytes % 15.1 % (21.2-54.2); Mean Corpuscular HGB Conc 30.9 GM/DL (32-36); Mean Corpuscular Volume 96.4 FL (87-102); Mean Platelet Volume 10.9 FL (9.6-12.0); Monocytes # 0.4 10*3/uL (0.11-0.8); Monocytes % 7.9 % (1.7-12.7); Neutrophils % 75.7 % (38.7-73.9); Platelet Count 127 T/CUMM (130-400); Red Blood Count 3.62 MC/CUMM (3.8-5.5); Red Cell Distribution Width 17.2 % (9.3-17.3); White Blood Count 5.6 T/CUMM (4-12)
[2022-02-22 12:37] LABS: Alanine Aminotransferase 20 U/L (16-61); Albumin 3.2 G/DL (3.4-5.0); Alkaline Phosphatase 80 U/L (45-117); Aspartate Amino Transferase 27 U/L (0-37); Blood Urea Nitrogen 13 MG/DL (7-18); Calcium 9.5 MG/DL (8.5-10.1); Carbon Dioxide 30 MMOL/L (21-32); Chloride 95 MMOL/L (98-107); Estimated Glom Filtration Rate 15 ML/MIN; Glucose 87 MG/DL (74-106); Osmolality,Calculated 266.2 MOS/KG (273-304); Potassium 3.1 MMOL/L (3.5-5.1); Sodium 134 MMOL/L (136-145); Total Protein 9.9 G/DL (6.4-8.2)
[2022-02-22] MEDS ORDERED: VANCOMYCIN INJ 1,000 MG in SODIUM CHLORIDE 0.9% 250 ML IV STA (12:39)
[2022-02-22] MEDS ORDERED: POTASSIUM CHLORIDE 20 MEQ TABLET PO STA (13:17)
[2022-02-22] MEDS ORDERED: ACETAMINOPHEN 325 MG TABLET PO PRN (14:03)
[2022-02-22] MEDS ORDERED: LACTULOSE 20 GM/30 ML UDCUP PO PRN (14:03)
[2022-02-22] MEDS ORDERED: ONDANSETRON 4 MG/2 ML VIAL IV PRN (14:03)
[2022-02-22] MEDS: PANTOPRAZOLE 40 MG TABLET PO SCH (17:02)
[2022-02-22] MEDS: carvediloL 3.125 MG TABLET PO SCH (17:20)
[2022-02-22] MEDS: SEVELAMER CARBONATE 800 MG TABLET PO SCH (18:40)
[2022-02-22] MEDS ORDERED: ATORVASTATIN 40 MG TABLET PO SCH (21:00)
[2022-02-22] MEDS ORDERED: SACUBITRIL/VALSARTAN 49-51 MG TABLET PO SCH (21:00)
[2022-02-22] MEDS: MUPIROCIN 2% OINT 22 GM TUBE TOP SCH (21:29)
[2022-02-22] MEDS: CHLORHEXIDINE 0.12% ORAL RINSE 60 ML BOTTLE SWISH/SPIT SCH (21:30)
[2022-02-22] MEDS: SACUBITRIL/VALSARTAN 49-51 MG TABLET PO SCH (21:30)
[2022-02-23 09:06] LABS: Basophils % 0.2 % (0.0-0.8); Eosinophils % 0.7 % (0.00-10.9); Hematocrit 25.1 VOL% (42.0-52.0); Hemoglobin 7.7 GM/DL (14.0-18.0); Immature Granulocytes % 0.4 %; Immature Granulocytes Absolute 0.02 #; Lymphocytes # 0.7 10*3/uL (1.4-4.0); Lymphocytes % 15.6 % (21.2-54.2); Mean Corpuscular HGB Conc 30.7 GM/DL (32-36); Mean Corpuscular Volume 96.9 FL (87-102); Mean Platelet Volume 10.8 FL (9.6-12.0); Monocytes # 0.4 10*3/uL (0.11-0.8); Monocytes % 9.6 % (1.7-12.7); Neutrophils % 73.5 % (38.7-73.9); Platelet Count 140 T/CUMM (130-400); Red Blood Count 2.59 MC/CUMM (3.8-5.5); White Blood Count 4.5 T/CUMM (4-12)
[2022-02-23 09:30] LABS: Albumin 2.7 G/DL (3.4-5.0); Calcium 9.2 MG/DL (8.5-10.1); Osmolality,Calculated 267.4 MOS/KG (273-304); Potassium 3.2 MMOL/L (3.5-5.1); Total Protein 8.5 G/DL (6.4-8.2)
[2022-02-23 09:45] LABS: Hypochromia Slight; Ovalocytes Few
[2022-02-23 09:46] LABS: Anisocytosis Slight; Platelet Estimate Adequate; Polychromasia Slight
[2022-02-23] MEDS: FLUoxetine 20 MG CAPSULE PO SCH (11:00)
[2022-02-23] MEDS: SACUBITRIL/VALSARTAN 49-51 MG TABLET PO SCH ×2 (11:00→20:47)
[2022-02-23] MEDS: PANTOPRAZOLE 40 MG TABLET PO SCH ×2 (11:00→16:50)
[2022-02-23] MEDS: ASPIRIN CHEW 81 MG TABLET PO SCH (11:00)
[2022-02-23] MEDS: carvediloL 3.125 MG TABLET PO SCH ×2 (11:00→16:50)
[2022-02-23] MEDS: MUPIROCIN 2% OINT 22 GM TUBE TOP SCH ×2 (11:00→20:47)
[2022-02-23] MEDS: SEVELAMER CARBONATE 800 MG TABLET PO SCH ×3 (11:00→16:50)
[2022-02-23] MEDS: CHLORHEXIDINE 0.12% ORAL RINSE 60 ML BOTTLE SWISH/SPIT SCH ×2 (11:00→20:48)
[2022-02-24 06:03] LABS: Basophils % 0.3 % (0.0-0.8); Eosinophils # 0.1 10*3/uL (0.0-0.87); Hematocrit 20.9 VOL% (42.0-52.0); Immature Granulocytes % 1.2 %; Immature Granulocytes Absolute 0.04 #; Lymphocytes # 0.9 10*3/uL (1.4-4.0); Lymphocytes % 25.7 % (21.2-54.2); Mean Corpuscular HGB Conc 30.6 GM/DL (32-36); Mean Platelet Volume 10.6 FL (9.6-12.0); Monocytes # 0.5 10*3/uL (0.11-0.8); Monocytes % 14.9 % (1.7-12.7); Neutrophils % 55.9 % (38.7-73.9); Platelet Count 119 T/CUMM (130-400); Red Cell Distribution Width 16.7 % (9.3-17.3); White Blood Count 3.4 T/CUMM (4-12)
[2022-02-24 06:07] LABS: Hemoglobin 6.4 GM/DL (14.0-18.0)
[2022-02-24] MEDS ORDERED: SODIUM CHLORIDE 0.9% 1,000 ML IV PRN (06:13)
[2022-02-24 06:25] LABS: Albumin 2.3 G/DL (3.4-5.0); Bilirubin,Total 0.6 MG/DL (0.20-1.00); Calcium 8.9 MG/DL (8.5-10.1); Osmolality,Calculated 269.4 MOS/KG (273-304); Potassium 3.1 MMOL/L (3.5-5.1); Total Protein 7.1 G/DL (6.4-8.2)
[2022-02-24 06:28] LABS: Anisocytosis 1+; Hypochromia 1+; Ovalocytes Few; Polychromasia Few
[2022-02-24 06:30] LABS: Platelet Estimate Normal
[2022-02-24 06:42] LABS: Phosphorous 2.3 MG/DL (2.5-4.9)
[2022-02-24] MEDS: PANTOPRAZOLE 40 MG TABLET PO SCH ×2 (10:43→17:43)
[2022-02-24] MEDS: SEVELAMER CARBONATE 800 MG TABLET PO SCH ×3 (10:43→17:43)
[2022-02-24] MEDS: carvediloL 3.125 MG TABLET PO SCH ×2 (10:43→17:43)
[2022-02-24] MEDS: CHLORHEXIDINE 0.12% ORAL RINSE 60 ML BOTTLE SWISH/SPIT SCH ×2 (10:44→21:14)
[2022-02-24] MEDS: SACUBITRIL/VALSARTAN 49-51 MG TABLET PO SCH ×2 (10:44→21:13)
[2022-02-24] MEDS: ASPIRIN CHEW 81 MG TABLET PO SCH (10:44)
[2022-02-24] MEDS: FLUoxetine 20 MG CAPSULE PO SCH (10:44)
[2022-02-24] MEDS: MUPIROCIN 2% OINT 22 GM TUBE TOP SCH ×2 (10:44→21:14)
[2022-02-24] MEDS ORDERED: HEPARIN 10,000 UNIT/10 ML VIAL IV PRN (10:58)
[2022-02-25 06:38] LABS: Basophils % 0.2 % (0.0-0.8); Eosinophils # 0.1 10*3/uL (0.0-0.87); Eosinophils % 1.8 % (0.00-10.9); Hematocrit 26.4 VOL% (42.0-52.0); Immature Granulocytes % 1.1 %; Immature Granulocytes Absolute 0.05 #; Lymphocytes # 1.2 10*3/uL (1.4-4.0); Lymphocytes % 27.1 % (21.2-54.2); Mean Corpuscular HGB Conc 31.4 GM/DL (32-36); Mean Platelet Volume 10.2 FL (9.6-12.0); Monocytes # 0.8 10*3/uL (0.11-0.8); Monocytes % 16.8 % (1.7-12.7); Platelet Count 138 T/CUMM (130-400); Red Blood Count 2.87 MC/CUMM (3.8-5.5); Red Cell Distribution Width 18.3 % (9.3-17.3); White Blood Count 4.5 T/CUMM (4-12)
[2022-02-25 06:39] LABS: Hemoglobin 8.3 GM/DL (14.0-18.0)
[2022-02-25 07:00] LABS: Albumin 2.3 G/DL (3.4-5.0); Bilirubin,Total 0.6 MG/DL (0.20-1.00); Calcium 9.3 MG/DL (8.5-10.1); Osmolality,Calculated 267.4 MOS/KG (273-304); Total Protein 7.5 G/DL (6.4-8.2)
[2022-02-25 07:04] LABS: Lymphocytes 28 % (20-55); Total Cells Counted 100
[2022-02-25 07:05] LABS: Hypochromia 1+; Microcytosis 1+; Platelet Estimate Normal
[2022-02-25] MEDS: SEVELAMER CARBONATE 800 MG TABLET PO SCH ×3 (07:59→17:05)
[2022-02-25] MEDS: PANTOPRAZOLE 40 MG TABLET PO SCH ×2 (07:59→17:05)
[2022-02-25] MEDS: carvediloL 3.125 MG TABLET PO SCH ×2 (07:59→17:05)
[2022-02-25] MEDS: CHLORHEXIDINE 0.12% ORAL RINSE 60 ML BOTTLE SWISH/SPIT SCH ×2 (08:00→21:48)
[2022-02-25] MEDS: SACUBITRIL/VALSARTAN 49-51 MG TABLET PO SCH ×2 (08:00→21:48)
[2022-02-25] MEDS: FLUoxetine 20 MG CAPSULE PO SCH (08:00)
[2022-02-25] MEDS: ASPIRIN CHEW 81 MG TABLET PO SCH (08:00)
[2022-02-25] MEDS: MUPIROCIN 2% OINT 22 GM TUBE TOP SCH ×2 (08:01→21:49)
[2022-02-26 06:27] LABS: Basophils % 0.4 % (0.0-0.8); Eosinophils # 0.1 10*3/uL (0.0-0.87); Eosinophils % 1.7 % (0.00-10.9); Hematocrit 27.8 VOL% (42.0-52.0); Hemoglobin 8.7 GM/DL (14.0-18.0); Immature Granulocytes % 0.9 %; Immature Granulocytes Absolute 0.04 #; Lymphocytes # 1.1 10*3/uL (1.4-4.0); Lymphocytes % 24.6 % (21.2-54.2); Mean Corpuscular HGB Conc 31.3 GM/DL (32-36); Mean Corpuscular Volume 91.7 FL (87-102); Mean Platelet Volume 10.4 FL (9.6-12.0); Monocytes # 0.7 10*3/uL (0.11-0.8); Monocytes % 15.9 % (1.7-12.7); Neutrophils % 56.5 % (38.7-73.9); Platelet Count 148 T/CUMM (130-400); Red Blood Count 3.03 MC/CUMM (3.8-5.5); Red Cell Distribution Width 17.9 % (9.3-17.3); White Blood Count 4.6 T/CUMM (4-12)
[2022-02-26 06:49] LABS: Band Neutrophils 1 % (0-10); Eosinophils 3 % (0-10); Hypochromia Slight; Lymphocytes 25 % (20-55); Microcytosis Slight; Platelet Estimate Adequate; Total Cells Counted 100
[2022-02-26 07:03] LABS: Albumin 2.3 G/DL (3.4-5.0); Bilirubin,Total 0.6 MG/DL (0.20-1.00); Calcium 8.9 MG/DL (8.5-10.1); Osmolality,Calculated 272.2 MOS/KG (273-304); Potassium 3.2 MMOL/L (3.5-5.1); Total Protein 7.6 G/DL (6.4-8.2)
[2022-02-26] MEDS ORDERED: POTASSIUM CHLORIDE 20 MEQ TABLET PO ONE ×2 (07:56→11:00)
[2022-02-26] MEDS: carvediloL 3.125 MG TABLET PO SCH ×2 (08:09→16:53)
[2022-02-26] MEDS: PANTOPRAZOLE 40 MG TABLET PO SCH ×2 (08:09→16:53)
[2022-02-26] MEDS: ASPIRIN CHEW 81 MG TABLET PO SCH (08:09)
[2022-02-26] MEDS: SACUBITRIL/VALSARTAN 49-51 MG TABLET PO SCH ×2 (08:09→21:38)
[2022-02-26] MEDS: FLUoxetine 20 MG CAPSULE PO SCH (08:09)
[2022-02-26] MEDS: SEVELAMER CARBONATE 800 MG TABLET PO SCH ×3 (08:09→16:53)
[2022-02-26] MEDS: MUPIROCIN 2% OINT 22 GM TUBE TOP SCH ×2 (08:10→21:55)
[2022-02-26] MEDS: CHLORHEXIDINE 0.12% ORAL RINSE 60 ML BOTTLE SWISH/SPIT SCH ×2 (08:10→21:52)
[2022-02-27 06:28] LABS: Albumin 2.1 G/DL (3.4-5.0); Bilirubin,Total 0.6 MG/DL (0.20-1.00); Calcium 9.3 MG/DL (8.5-10.1); Osmolality,Calculated 270.5 MOS/KG (273-304); Potassium 4.5 MMOL/L (3.5-5.1); Total Protein 7.2 G/DL (6.4-8.2)
[2022-02-27] MEDS: SEVELAMER CARBONATE 800 MG TABLET PO SCH ×3 (11:17→18:37)
[2022-02-27] MEDS: ASPIRIN CHEW 81 MG TABLET PO SCH (11:17)
[2022-02-27] MEDS: PANTOPRAZOLE 40 MG TABLET PO SCH ×2 (11:17→16:20)
[2022-02-27] MEDS: MUPIROCIN 2% OINT 22 GM TUBE TOP SCH ×2 (11:18→20:52)
[2022-02-27] MEDS: CHLORHEXIDINE 0.12% ORAL RINSE 60 ML BOTTLE SWISH/SPIT SCH ×2 (11:22→20:52)
[2022-02-27] MEDS: FLUoxetine 20 MG CAPSULE PO SCH (11:22)
[2022-02-27 12:56] LABS: Basophils % 0.5 % (0.0-0.8); Eosinophils # 0.1 10*3/uL (0.0-0.87); Hematocrit 28.6 VOL% (42.0-52.0); Immature Granulocytes % 1.1 %; Immature Granulocytes Absolute 0.06 #; Lymphocytes # 1.3 10*3/uL (1.4-4.0); Lymphocytes % 22.7 % (21.2-54.2); Mean Corpuscular HGB Conc 31.5 GM/DL (32-36); Mean Platelet Volume 10.8 FL (9.6-12.0); Monocytes # 0.6 10*3/uL (0.11-0.8); Monocytes % 11.2 % (1.7-12.7); Neutrophils % 62.5 % (38.7-73.9); Platelet Count 119 T/CUMM (130-400); Red Blood Count 3.11 MC/CUMM (3.8-5.5); Red Cell Distribution Width 17.6 % (9.3-17.3); White Blood Count 5.6 T/CUMM (4-12)
[2022-02-27] MEDS: carvediloL 3.125 MG TABLET PO SCH ×2 (14:48→18:38)
[2022-02-27] MEDS: SACUBITRIL/VALSARTAN 49-51 MG TABLET PO SCH ×2 (14:48→20:52)
[2022-02-28 05:41] LABS: Basophils % 0.4 % (0.0-0.8); Eosinophils # 0.1 10*3/uL (0.0-0.87); Eosinophils % 1.1 % (0.00-10.9); Hemoglobin 8.6 GM/DL (14.0-18.0); Immature Granulocytes % 0.9 %; Immature Granulocytes Absolute 0.05 #; Lymphocytes # 1.2 10*3/uL (1.4-4.0); Lymphocytes % 21.6 % (21.2-54.2); Mean Corpuscular HGB Conc 31.9 GM/DL (32-36); Mean Corpuscular Volume 92.5 FL (87-102); Mean Platelet Volume 10.2 FL (9.6-12.0); Monocytes # 0.7 10*3/uL (0.11-0.8); Platelet Count 148 T/CUMM (130-400); Red Blood Count 2.92 MC/CUMM (3.8-5.5); Red Cell Distribution Width 17.2 % (9.3-17.3); White Blood Count 5.7 T/CUMM (4-12)
[2022-02-28 05:56] LABS: Albumin 2.3 G/DL (3.4-5.0); Bilirubin,Total 0.7 MG/DL (0.20-1.00); Calcium 9.7 MG/DL (8.5-10.1); Osmolality,Calculated 261.8 MOS/KG (273-304); Potassium 3.9 MMOL/L (3.5-5.1); Total Protein 7.6 G/DL (6.4-8.2)
[2022-02-28] MEDS: CHLORHEXIDINE 0.12% ORAL RINSE 60 ML BOTTLE SWISH/SPIT SCH ×2 (08:39→22:06)
[2022-02-28] MEDS: carvediloL 3.125 MG TABLET PO SCH ×2 (08:39→18:09)
[2022-02-28] MEDS: SEVELAMER CARBONATE 800 MG TABLET PO SCH ×3 (08:39→17:15)
[2022-02-28] MEDS: PANTOPRAZOLE 40 MG TABLET PO SCH ×2 (12:13→16:40)
[2022-02-28] MEDS: SACUBITRIL/VALSARTAN 49-51 MG TABLET PO SCH ×2 (12:14→21:49)
[2022-02-28] MEDS: ASPIRIN CHEW 81 MG TABLET PO SCH (15:04)
[2022-02-28] MEDS: FLUoxetine 20 MG CAPSULE PO SCH (15:04)
[2022-02-28] MEDS ORDERED: LIDOCAINE 1% 50 ML VIAL MISC INJ ONE (15:30)
[2022-02-28] MEDS: MUPIROCIN 2% OINT 22 GM TUBE TOP SCH ×2 (16:40→21:49)
[2022-02-28] MEDS ORDERED: BUPIVACAINE MPF 0.25% 30 ML VIAL ONE (18:38)
[2022-02-28] MEDS ORDERED: LIDOCAINE 1%/EPI INJ 20 ML VIAL ONE (18:38)
[2022-03-01] MEDS: SEVELAMER CARBONATE 800 MG TABLET PO SCH ×3 (08:16→18:19)
[2022-03-01] MEDS: FLUoxetine 20 MG CAPSULE PO SCH (08:16)
[2022-03-01] MEDS: ASPIRIN CHEW 81 MG TABLET PO SCH (08:16)
[2022-03-01] MEDS: carvediloL 3.125 MG TABLET PO SCH ×2 (08:17→17:53)
[2022-03-01] MEDS: SACUBITRIL/VALSARTAN 49-51 MG TABLET PO SCH ×2 (08:17→21:24)
[2022-03-01] MEDS: PANTOPRAZOLE 40 MG TABLET PO SCH ×2 (08:17→17:53)
[2022-03-01 09:20] LABS: Basophils % 0.1 % (0.0-0.8); Eosinophils # 0.1 10*3/uL (0.0-0.87); Eosinophils % 0.7 % (0.00-10.9); Hematocrit 30.9 VOL% (42.0-52.0); Hemoglobin 9.6 GM/DL (14.0-18.0); Immature Granulocytes % 0.7 %; Immature Granulocytes Absolute 0.05 #; Lymphocytes # 1.2 10*3/uL (1.4-4.0); Mean Corpuscular HGB Conc 31.1 GM/DL (32-36); Mean Corpuscular Volume 93.1 FL (87-102); Monocytes # 0.7 10*3/uL (0.11-0.8); Monocytes % 9.7 % (1.7-12.7); Neutrophils % 70.8 % (38.7-73.9); Platelet Count 183 T/CUMM (130-400); Red Blood Count 3.32 MC/CUMM (3.8-5.5); Red Cell Distribution Width 17.1 % (9.3-17.3); White Blood Count 6.8 T/CUMM (4-12)
[2022-03-01 09:53] LABS: Albumin 2.6 G/DL (3.4-5.0); Bilirubin,Total 0.6 MG/DL (0.20-1.00); Calcium 10.5 MG/DL (8.5-10.1); Osmolality,Calculated 266.5 MOS/KG (273-304); Potassium 4.1 MMOL/L (3.5-5.1); Total Protein 8.7 G/DL (6.4-8.2)
[2022-03-01] MEDS: CHLORHEXIDINE 0.12% ORAL RINSE 60 ML BOTTLE SWISH/SPIT SCH ×2 (10:46→21:24)
[2022-03-01] MEDS: MUPIROCIN 2% OINT 22 GM TUBE TOP SCH ×2 (10:46→21:26)
[2022-03-01] MEDS: HEPARIN 5,000 UNIT/1 ML VIAL SUBCUT SCH ×2 (12:42→23:33)
[2022-03-02 05:34] LABS: Basophils % 0.4 % (0.0-0.8); Eosinophils # 0.1 10*3/uL (0.0-0.87); Eosinophils % 1.1 % (0.00-10.9); Hematocrit 27.1 VOL% (42.0-52.0); Hemoglobin 8.4 GM/DL (14.0-18.0); Immature Granulocytes % 0.5 %; Immature Granulocytes Absolute 0.03 #; Lymphocytes # 1.1 10*3/uL (1.4-4.0); Lymphocytes % 19.1 % (21.2-54.2); Mean Corpuscular Volume 93.4 FL (87-102); Mean Platelet Volume 9.6 FL (9.6-12.0); Monocytes # 0.6 10*3/uL (0.11-0.8); Monocytes % 10.6 % (1.7-12.7); Neutrophils % 68.3 % (38.7-73.9); Platelet Count 155 T/CUMM (130-400); Red Cell Distribution Width 16.6 % (9.3-17.3); White Blood Count 5.6 T/CUMM (4-12)
[2022-03-02 05:58] LABS: Albumin 2.5 G/DL (3.4-5.0); Bilirubin,Total 0.6 MG/DL (0.20-1.00); Calcium 10.2 MG/DL (8.5-10.1); Osmolality,Calculated 266.5 MOS/KG (273-304); Potassium 3.9 MMOL/L (3.5-5.1)
[2022-03-02 05:59] LABS: Total Protein 7.9 G/DL (6.4-8.2)
[2022-03-02 07:40] LABS: Immunoglobulin A (Chem) 381 MG/DL (70-400); Immunoglobulin G (Chem) 2490 MG/DL (700-1600); Immunoglobulin M (Chem) 63 MG/DL (40-230); Total Protein (Chem) 7.9 G/DL (6.4-8.3)
[2022-03-02] MEDS: carvediloL 3.125 MG TABLET PO SCH ×2 (08:47→17:08)
[2022-03-02] MEDS: ASPIRIN CHEW 81 MG TABLET PO SCH (08:47)
[2022-03-02] MEDS: SACUBITRIL/VALSARTAN 49-51 MG TABLET PO SCH ×2 (08:47→20:43)
[2022-03-02] MEDS: FLUoxetine 20 MG CAPSULE PO SCH (08:47)
[2022-03-02] MEDS: CHLORHEXIDINE 0.12% ORAL RINSE 60 ML BOTTLE SWISH/SPIT SCH ×2 (08:48→20:43)
[2022-03-02] MEDS: PANTOPRAZOLE 40 MG TABLET PO SCH ×2 (08:48→17:08)
[2022-03-02 10:01] LABS: Albumin (SPE) 3.6 G/DL (3.2-5.3); Alpha 1 (SPE) 0.4 G/DL (0.1-0.4); Alpha 1 (SPE) Rel % 4.7 %; Alpha 2 (SPE) 0.8 G/DL (0.4-1.0); Beta (SPE) 0.7 G/DL (0.5-1.1); Beta (SPE) Rel % 9.1 %; Gamma (SPE) 2.5 G/DL (0.7-1.7); Gamma (SPE) Rel % 31.2 %
[2022-03-02] MEDS: SEVELAMER CARBONATE 800 MG TABLET PO SCH ×3 (10:04→17:46)
[2022-03-02] MEDS: MUPIROCIN 2% OINT 22 GM TUBE TOP SCH ×2 (10:05→20:45)
[2022-03-02] MEDS: HEPARIN 5,000 UNIT/1 ML VIAL SUBCUT SCH ×2 (12:49→23:08)
[2022-03-03 05:36] LABS: Basophils % 0.4 % (0.0-0.8); Eosinophils # 0.1 10*3/uL (0.0-0.87); Eosinophils % 1.4 % (0.00-10.9); Hematocrit 25.5 VOL% (42.0-52.0); Immature Granulocytes % 0.6 %; Immature Granulocytes Absolute 0.03 #; Lymphocytes # 1.2 10*3/uL (1.4-4.0); Lymphocytes % 23.6 % (21.2-54.2); Mean Corpuscular HGB Conc 31.4 GM/DL (32-36); Mean Corpuscular Volume 91.7 FL (87-102); Mean Platelet Volume 9.8 FL (9.6-12.0); Monocytes # 0.6 10*3/uL (0.11-0.8); Monocytes % 12.3 % (1.7-12.7); Neutrophils % 61.7 % (38.7-73.9); Platelet Count 164 T/CUMM (130-400); Red Blood Count 2.78 MC/CUMM (3.8-5.5); Red Cell Distribution Width 16.6 % (9.3-17.3); White Blood Count 5.1 T/CUMM (4-12)
[2022-03-03 06:11] LABS: Albumin 2.3 G/DL (3.4-5.0); Bilirubin,Total 0.5 MG/DL (0.20-1.00); Calcium 9.1 MG/DL (8.5-10.1); Osmolality,Calculated 273.4 MOS/KG (273-304); Potassium 3.7 MMOL/L (3.5-5.1); Total Protein 7.5 G/DL (6.4-8.2)
[2022-03-03] MEDS: CHLORHEXIDINE 0.12% ORAL RINSE 60 ML BOTTLE SWISH/SPIT SCH ×2 (08:02→20:56)
[2022-03-03] MEDS: MUPIROCIN 2% OINT 22 GM TUBE TOP SCH ×3 (08:02→21:33)
[2022-03-03] MEDS: SEVELAMER CARBONATE 800 MG TABLET PO SCH ×3 (08:03→16:20)
[2022-03-03] MEDS: PANTOPRAZOLE 40 MG TABLET PO SCH ×2 (08:03→16:20)
[2022-03-03] MEDS: ASPIRIN CHEW 81 MG TABLET PO SCH (08:03)
[2022-03-03] MEDS: SACUBITRIL/VALSARTAN 49-51 MG TABLET PO SCH ×2 (08:03→20:56)
[2022-03-03] MEDS: carvediloL 3.125 MG TABLET PO SCH ×2 (08:03→16:20)
[2022-03-03] MEDS: FLUoxetine 20 MG CAPSULE PO SCH (08:03)
[2022-03-03] MEDS: HEPARIN 5,000 UNIT/1 ML VIAL SUBCUT SCH ×2 (10:45→22:32)
[2022-03-03 14:06] LABS: Kappa Free Light Chain 55.8 mg/dL; Lambda Free Light Chain 32.8 mg/dL
[2022-03-04 06:47] LABS: Basophils % 0.5 % (0.0-0.8); Eosinophils # 0.1 10*3/uL (0.0-0.87); Eosinophils % 1.3 % (0.00-10.9); Hematocrit 28.8 VOL% (42.0-52.0); Hemoglobin 8.9 GM/DL (14.0-18.0); Immature Granulocytes % 0.3 %; Immature Granulocytes Absolute 0.02 #; Lymphocytes # 1.3 10*3/uL (1.4-4.0); Lymphocytes % 21.6 % (21.2-54.2); Mean Corpuscular HGB Conc 30.9 GM/DL (32-36); Mean Corpuscular Volume 92.6 FL (87-102); Monocytes # 0.7 10*3/uL (0.11-0.8); Monocytes % 10.7 % (1.7-12.7); Neutrophils % 65.6 % (38.7-73.9); Platelet Count 205 T/CUMM (130-400); Red Blood Count 3.11 MC/CUMM (3.8-5.5); Red Cell Distribution Width 16.3 % (9.3-17.3); White Blood Count 6.2 T/CUMM (4-12)
[2022-03-04 07:09] LABS: Albumin 2.5 G/DL (3.4-5.0); Bilirubin,Total 0.6 MG/DL (0.20-1.00); Calcium 9.7 MG/DL (8.5-10.1); Osmolality,Calculated 269.7 MOS/KG (273-304); Total Protein 8.1 G/DL (6.4-8.2)
[2022-03-04] MEDS: carvediloL 3.125 MG TABLET PO SCH ×2 (09:50→17:27)
[2022-03-04] MEDS: PANTOPRAZOLE 40 MG TABLET PO SCH ×2 (09:50→17:27)
[2022-03-04] MEDS: SEVELAMER CARBONATE 800 MG TABLET PO SCH ×3 (09:50→17:27)
[2022-03-04] MEDS: MUPIROCIN 2% OINT 22 GM TUBE TOP SCH ×2 (09:50→20:27)
[2022-03-04] MEDS: ASPIRIN CHEW 81 MG TABLET PO SCH (09:50)
[2022-03-04] MEDS: CHLORHEXIDINE 0.12% ORAL RINSE 60 ML BOTTLE SWISH/SPIT SCH ×2 (09:51→20:29)
[2022-03-04] MEDS: FLUoxetine 20 MG CAPSULE PO SCH (09:51)
[2022-03-04] MEDS: SACUBITRIL/VALSARTAN 49-51 MG TABLET PO SCH ×2 (09:51→20:29)
[2022-03-04] MEDS: HEPARIN 5,000 UNIT/1 ML VIAL SUBCUT SCH ×2 (11:44→22:04)
[2022-03-04] MEDS ORDERED: EPOETIN ALFA-EPBX 4,000 UNIT/ML VIAL IV PRN (15:30)
[2022-03-05 06:47] LABS: Albumin 2.3 G/DL (3.4-5.0); Bilirubin,Total 0.4 MG/DL (0.20-1.00); Calcium 9.6 MG/DL (8.5-10.1); Osmolality,Calculated 268.9 MOS/KG (273-304); Potassium 4.4 MMOL/L (3.5-5.1); Total Protein 7.9 G/DL (6.4-8.2)
[2022-03-05 06:49] LABS: Basophils % 0.3 % (0.0-0.8); Eosinophils # 0.1 10*3/uL (0.0-0.87); Hematocrit 30.4 VOL% (42.0-52.0); Immature Granulocytes % 0.5 %; Immature Granulocytes Absolute 0.03 #; Lymphocytes # 1.2 10*3/uL (1.4-4.0); Lymphocytes % 20.4 % (21.2-54.2); Mean Corpuscular HGB Conc 29.6 GM/DL (32-36); Mean Corpuscular Volume 95.6 FL (87-102); Mean Platelet Volume 9.8 FL (9.6-12.0); Monocytes # 0.7 10*3/uL (0.11-0.8); Monocytes % 11.4 % (1.7-12.7); Neutrophils % 66.4 % (38.7-73.9); Platelet Count 194 T/CUMM (130-400); Red Blood Count 3.18 MC/CUMM (3.8-5.5); Red Cell Distribution Width 16.1 % (9.3-17.3); White Blood Count 5.8 T/CUMM (4-12)
[2022-03-05] MEDS: PANTOPRAZOLE 40 MG TABLET PO SCH ×2 (07:49→16:40)
[2022-03-05] MEDS: SEVELAMER CARBONATE 800 MG TABLET PO SCH ×3 (07:50→16:42)
[2022-03-05] MEDS: carvediloL 3.125 MG TABLET PO SCH (07:51)
[2022-03-05] MEDS: ASPIRIN CHEW 81 MG TABLET PO SCH (08:32)
[2022-03-05] MEDS: SACUBITRIL/VALSARTAN 49-51 MG TABLET PO SCH ×2 (08:32→20:17)
[2022-03-05] MEDS: FLUoxetine 20 MG CAPSULE PO SCH (08:33)
[2022-03-05] MEDS: CHLORHEXIDINE 0.12% ORAL RINSE 60 ML BOTTLE SWISH/SPIT SCH ×2 (08:34→20:18)
[2022-03-05] MEDS: MUPIROCIN 2% OINT 22 GM TUBE TOP SCH ×2 (08:34→20:03)
[2022-03-05] MEDS: HEPARIN 5,000 UNIT/1 ML VIAL SUBCUT SCH (11:38)
[2022-03-05 12:33] LABS: Platelet Estimate Normal
[2022-03-05 12:34] LABS: Anisocytosis Slight; Macrocytosis 1+
[2022-03-05] MEDS: carvediloL 6.25 MG TABLET PO SCH (16:41)
[2022-03-06 04:38] LABS: Basophils % 0.5 % (0.0-0.8); Eosinophils # 0.1 10*3/uL (0.0-0.87); Eosinophils % 1.4 % (0.00-10.9); Hematocrit 32.1 VOL% (42.0-52.0); Hemoglobin 9.7 GM/DL (14.0-18.0); Immature Granulocytes % 0.5 %; Immature Granulocytes Absolute 0.03 #; Lymphocytes # 1.6 10*3/uL (1.4-4.0); Lymphocytes % 25.3 % (21.2-54.2); Mean Corpuscular HGB Conc 30.2 GM/DL (32-36); Mean Corpuscular Volume 93.3 FL (87-102); Mean Platelet Volume 9.7 FL (9.6-12.0); Monocytes # 0.5 10*3/uL (0.11-0.8); Monocytes % 7.4 % (1.7-12.7); Neutrophils % 64.9 % (38.7-73.9); Platelet Count 291 T/CUMM (130-400); Red Blood Count 3.44 MC/CUMM (3.8-5.5); Red Cell Distribution Width 16.2 % (9.3-17.3); White Blood Count 6.5 T/CUMM (4-12)
[2022-03-06 05:00] LABS: Albumin 2.7 G/DL (3.4-5.0); Bilirubin,Total 0.5 MG/DL (0.20-1.00); Calcium 9.8 MG/DL (8.5-10.1); Osmolality,Calculated 272.8 MOS/KG (273-304); Potassium 4.2 MMOL/L (3.5-5.1); Total Protein 8.8 G/DL (6.4-8.2)
[2022-03-06 05:19] LABS: Calcium 9.8 MG/DL (8.5-10.1); Osmolality,Calculated 272.8 MOS/KG (273-304); Potassium 4.2 MMOL/L (3.5-5.1)
[2022-03-06] MEDS ORDERED: SODIUM CHLORIDE 0.9% 250 ML IV SCH (10:00)
[2022-03-06] MEDS ORDERED: HEPARIN 5,000 UNIT/1 ML VIAL ONE (10:39)
[2022-03-06] MEDS ORDERED: BUPIVACAINE 0.5% 50 ML VIAL ONE (10:39)
[2022-03-06] MEDS ORDERED: fentaNYL 100 MCG/2 ML VIAL ONE (10:39)
[2022-03-06] MEDS ORDERED: LIDOCAINE 1%/EPI INJ 20 ML VIAL ONE (10:40)
[2022-03-06] MEDS ORDERED: LIDOCAINE 2% 5 ML VIAL ONE (10:50)
[2022-03-06] MEDS ORDERED: ONDANSETRON 4 MG/2 ML VIAL ONE (10:50)
[2022-03-06] MEDS ORDERED: propofoL 200 MG/20 ML VIAL IV ONE (10:50)
[2022-03-06] MEDS: SEVELAMER CARBONATE 800 MG TABLET PO SCH ×2 (17:52→17:53)
[2022-03-06] MEDS: MUPIROCIN 2% OINT 22 GM TUBE TOP SCH ×2 (17:52→21:32)
[2022-03-06] MEDS: SACUBITRIL/VALSARTAN 49-51 MG TABLET PO SCH ×2 (17:52→21:32)
[2022-03-06] MEDS: FLUoxetine 20 MG CAPSULE PO SCH (17:52)
[2022-03-06] MEDS: PANTOPRAZOLE 40 MG TABLET PO SCH ×2 (17:52→18:16)
[2022-03-06] MEDS: carvediloL 6.25 MG TABLET PO SCH ×2 (17:52→18:16)
[2022-03-06] MEDS: CHLORHEXIDINE 0.12% ORAL RINSE 60 ML BOTTLE SWISH/SPIT SCH ×2 (17:52→21:32)
[2022-03-06] MEDS: ASPIRIN CHEW 81 MG TABLET PO SCH (17:53)
[2022-03-07 04:37] LABS: Basophils % 0.3 % (0.0-0.8); Eosinophils # 0.1 10*3/uL (0.0-0.87); Eosinophils % 0.9 % (0.00-10.9); Hematocrit 27.6 VOL% (42.0-52.0); Hemoglobin 8.3 GM/DL (14.0-18.0); Immature Granulocytes % 0.3 %; Immature Granulocytes Absolute 0.02 #; Lymphocytes # 1.3 10*3/uL (1.4-4.0); Lymphocytes % 22.1 % (21.2-54.2); Mean Corpuscular HGB Conc 30.1 GM/DL (32-36); Mean Corpuscular Volume 92.3 FL (87-102); Mean Platelet Volume 9.5 FL (9.6-12.0); Monocytes # 0.7 10*3/uL (0.11-0.8); Monocytes % 12.4 % (1.7-12.7); Platelet Count 205 T/CUMM (130-400); Red Blood Count 2.99 MC/CUMM (3.8-5.5); White Blood Count 5.8 T/CUMM (4-12)
[2022-03-07 04:54] LABS: Calcium 9.6 MG/DL (8.5-10.1); Osmolality,Calculated 272.7 MOS/KG (273-304); Potassium 4.4 MMOL/L (3.5-5.1)
[2022-03-07] MEDS: MUPIROCIN 2% OINT 22 GM TUBE TOP SCH ×3 (10:15→21:39)
[2022-03-07] MEDS: SEVELAMER CARBONATE 800 MG TABLET PO SCH ×3 (10:15→16:40)
[2022-03-07] MEDS: carvediloL 6.25 MG TABLET PO SCH ×2 (10:15→17:17)
[2022-03-07] MEDS: SACUBITRIL/VALSARTAN 49-51 MG TABLET PO SCH ×3 (10:16→21:39)
[2022-03-07] MEDS: CHLORHEXIDINE 0.12% ORAL RINSE 60 ML BOTTLE SWISH/SPIT SCH ×2 (10:16→21:28)
[2022-03-07] MEDS: PANTOPRAZOLE 40 MG TABLET PO SCH ×2 (10:17→17:17)
[2022-03-07] MEDS: ASPIRIN CHEW 81 MG TABLET PO SCH (13:23)
[2022-03-07] MEDS: FLUoxetine 20 MG CAPSULE PO SCH (13:23)
[2022-03-08 05:10] LABS: Basophils % 0.4 % (0.0-0.8); Eosinophils % 0.8 % (0.00-10.9); Hematocrit 27.1 VOL% (42.0-52.0); Hemoglobin 8.4 GM/DL (14.0-18.0); Immature Granulocytes % 0.4 %; Immature Granulocytes Absolute 0.02 #; Lymphocytes # 1.4 10*3/uL (1.4-4.0); Lymphocytes % 26.3 % (21.2-54.2); Mean Corpuscular Volume 92.5 FL (87-102); Mean Platelet Volume 9.3 FL (9.6-12.0); Monocytes # 0.6 10*3/uL (0.11-0.8); Monocytes % 11.7 % (1.7-12.7); Neutrophils % 60.4 % (38.7-73.9); Platelet Count 210 T/CUMM (130-400); Red Blood Count 2.93 MC/CUMM (3.8-5.5); Red Cell Distribution Width 16.1 % (9.3-17.3); White Blood Count 5.1 T/CUMM (4-12)
[2022-03-08 05:26] LABS: Osmolality,Calculated 272.2 MOS/KG (273-304)
[2022-03-08] MEDS: carvediloL 6.25 MG TABLET PO SCH ×2 (08:55→16:37)
[2022-03-08] MEDS: FLUoxetine 20 MG CAPSULE PO SCH (08:55)
[2022-03-08] MEDS: PANTOPRAZOLE 40 MG TABLET PO SCH ×2 (08:55→17:30)
[2022-03-08] MEDS: ASPIRIN CHEW 81 MG TABLET PO SCH (08:55)
[2022-03-08] MEDS: CHLORHEXIDINE 0.12% ORAL RINSE 60 ML BOTTLE SWISH/SPIT SCH ×2 (09:21→21:16)
[2022-03-08] MEDS: SEVELAMER CARBONATE 800 MG TABLET PO SCH ×3 (09:22→17:30)
[2022-03-08] MEDS: MUPIROCIN 2% OINT 22 GM TUBE TOP SCH ×2 (09:22→21:16)
[2022-03-08] MEDS: SACUBITRIL/VALSARTAN 49-51 MG TABLET PO SCH ×2 (12:55→21:16)
[2022-03-09 06:19] LABS: Basophils % 0.5 % (0.0-0.8); Eosinophils # 0.1 10*3/uL (0.0-0.87); Eosinophils % 1.4 % (0.00-10.9); Hematocrit 27.3 VOL% (42.0-52.0); Hemoglobin 8.4 GM/DL (14.0-18.0); Immature Granulocytes % 0.5 %; Immature Granulocytes Absolute 0.02 #; Lymphocytes # 1.1 10*3/uL (1.4-4.0); Lymphocytes % 27.3 % (21.2-54.2); Mean Corpuscular HGB Conc 30.8 GM/DL (32-36); Mean Corpuscular Volume 92.9 FL (87-102); Mean Platelet Volume 9.7 FL (9.6-12.0); Monocytes # 0.5 10*3/uL (0.11-0.8); Monocytes % 11.2 % (1.7-12.7); Neutrophils % 59.1 % (38.7-73.9); Platelet Count 214 T/CUMM (130-400); Red Blood Count 2.94 MC/CUMM (3.8-5.5); Red Cell Distribution Width 16.4 % (9.3-17.3); White Blood Count 4.2 T/CUMM (4-12)
[2022-03-09 06:31] LABS: Osmolality,Calculated 269.4 MOS/KG (273-304); Potassium 3.8 MMOL/L (3.5-5.1)
[2022-03-09] MEDS: ASPIRIN CHEW 81 MG TABLET PO SCH (08:43)
[2022-03-09] MEDS: MUPIROCIN 2% OINT 22 GM TUBE TOP SCH (08:43)
[2022-03-09] MEDS: CHLORHEXIDINE 0.12% ORAL RINSE 60 ML BOTTLE SWISH/SPIT SCH (08:43)
[2022-03-09] MEDS: FLUoxetine 20 MG CAPSULE PO SCH (08:43)
[2022-03-09] MEDS: carvediloL 6.25 MG TABLET PO SCH (08:44)
[2022-03-09] MEDS: PANTOPRAZOLE 40 MG TABLET PO SCH (08:44)
[2022-03-09] MEDS: SACUBITRIL/VALSARTAN 49-51 MG TABLET PO SCH (08:44)
[2022-03-09] MEDS: SEVELAMER CARBONATE 800 MG TABLET PO SCH ×2 (08:44→11:15)
[2022-03-09 15:49] VITALS: BP 126/71
== END 2022-03-09 16:55 | disposition home health service (06) | DRG 314 ==
LOC: N.ED 10:49 → N.EDINP 14:04 → SUATTDRO 14:04 → N.3E 16:25
PROVIDERS: ADMIT Internal Medicine Geriatric Medicine; ATTEND Internal Medicine

== ENCOUNTER 2022-03-19 21:41 | Observation (INO) ==
[2022-03-19] MEDS ORDERED: ONDANSETRON 4 MG/2 ML VIAL IV STA (22:05)
[2022-03-19] MEDS ORDERED: MORPHINE 2 MG/1 ML SYRINGE IV STA (22:05)
[2022-03-19] MEDS ORDERED: ASPIRIN 325 MG TABLET PO STA (22:05)
[2022-03-19] MEDS ORDERED: MORPHINE 2 MG/1 ML SYRINGE ONE (22:08)
[2022-03-19 22:13] LABS: Basophils % 0.6 % (0.0-0.8); Eosinophils # 0.1 10*3/uL (0.0-0.87); Eosinophils % 1.9 % (0.00-10.9); Hematocrit 26.9 VOL% (42.0-52.0); Hemoglobin 7.9 GM/DL (14.0-18.0); Immature Granulocytes % 0.2 %; Immature Granulocytes Absolute 0.01 #; Lymphocytes # 1.3 10*3/uL (1.4-4.0); Mean Corpuscular HGB Conc 29.4 GM/DL (32-36); Mean Corpuscular Volume 98.5 FL (87-102); Mean Platelet Volume 10.5 FL (9.6-12.0); Monocytes # 0.4 10*3/uL (0.11-0.8); Monocytes % 9.1 % (1.7-12.7); Neutrophils % 61.2 % (38.7-73.9); Platelet Count 141 T/CUMM (130-400); Red Blood Count 2.73 MC/CUMM (3.8-5.5); Red Cell Distribution Width 17.3 % (9.3-17.3); White Blood Count 4.8 T/CUMM (4-12)
[2022-03-19 22:24] LABS: INR 1.2; PT Patient Result 13.4 SECS (10.5-12.0)
[2022-03-19 22:25] LABS: Partial Thromboplastin Time 41.8 SECS (23.8-32.1)
[2022-03-19 23:49] LABS: Calcium 8.6 MG/DL (8.5-10.1); Potassium 3.4 MMOL/L (3.5-5.1); Total Protein 8.8 G/DL (6.4-8.2)
[2022-03-20] MEDS ORDERED: NICOTINE 21 MG/24 HR PATCH TRANSDERM PRN (00:28)
[2022-03-20] MEDS ORDERED: DOCUSATE SODIUM 100 MG CAPSULE PO PRN (00:28)
[2022-03-20] MEDS ORDERED: ONDANSETRON 4 MG/2 ML VIAL IV PRN (00:28)
[2022-03-20] MEDS ORDERED: diphenhydrAMINE CAP 25 MG CAPSULE PO PRN (00:28)
[2022-03-20] MEDS ORDERED: GLUCAGON 1 MG VIAL IM PRN ×2 (00:28→01:00)
[2022-03-20] MEDS ORDERED: hydrALAZINE 20 MG/1 ML VIAL IV PRN (00:28)
[2022-03-20] MEDS ORDERED: ZALEPLON 5 MG CAPSULE PO PRN (00:28)
[2022-03-20] MEDS ORDERED: guaiFENesin/DM ER 600-30 MG TABLET PO PRN (00:28)
[2022-03-20] MEDS ORDERED: ACETAMINOPHEN 325 MG TABLET PO PRN (00:28)
[2022-03-20] MEDS ORDERED: MORPHINE 2 MG/1 ML SYRINGE IV PRN (00:28)
[2022-03-20] MEDS ORDERED: DEXTROSE 10% 250 ML BAG IV PRN ×2 (00:42→01:21)
[2022-03-20] MEDS ORDERED: SODIUM CHLORIDE 0.9% 1,000 ML IV PRN (00:53)
[2022-03-20 06:13] LABS: Basophils % 0.8 % (0.0-0.8); Eosinophils # 0.1 10*3/uL (0.0-0.87); Eosinophils % 2.1 % (0.00-10.9); Hematocrit 24.5 VOL% (42.0-52.0); Hemoglobin 7.5 GM/DL (14.0-18.0); Immature Granulocytes Absolute 0.04 #; Lymphocytes # 1.4 10*3/uL (1.4-4.0); Lymphocytes % 35.8 % (21.2-54.2); Mean Corpuscular HGB Conc 30.6 GM/DL (32-36); Mean Platelet Volume 11.6 FL (9.6-12.0); Monocytes # 0.4 10*3/uL (0.11-0.8); Monocytes % 9.6 % (1.7-12.7); Neutrophils % 50.7 % (38.7-73.9); Platelet Count 103 T/CUMM (130-400); Red Blood Count 2.58 MC/CUMM (3.8-5.5); Red Cell Distribution Width 17.2 % (9.3-17.3); White Blood Count 3.9 T/CUMM (4-12)
[2022-03-20 06:29] LABS: Calcium 8.7 MG/DL (8.5-10.1); Osmolality,Calculated 277.8 MOS/KG (273-304); Potassium 3.7 MMOL/L (3.5-5.1)
[2022-03-20 06:44] LABS: Folate 13.37 NG/ML (5.38-24.0); Vitamin B12 650 PG/ML (211-911)
[2022-03-20 07:33] LABS: Basophils % 0.5 % (0.0-0.8); Eosinophils # 0.1 10*3/uL (0.0-0.87); Eosinophils % 2.9 % (0.00-10.9); Hemoglobin 7.4 GM/DL (14.0-18.0); Immature Granulocytes % 0.3 %; Immature Granulocytes Absolute 0.01 #; Lymphocytes # 1.3 10*3/uL (1.4-4.0); Lymphocytes % 34.5 % (21.2-54.2); Mean Corpuscular HGB Conc 30.8 GM/DL (32-36); Mean Corpuscular Volume 94.9 FL (87-102); Mean Platelet Volume 11.4 FL (9.6-12.0); Monocytes # 0.4 10*3/uL (0.11-0.8); Monocytes % 9.4 % (1.7-12.7); Neutrophils % 52.4 % (38.7-73.9); Platelet Count 140 T/CUMM (130-400); Red Blood Count 2.53 MC/CUMM (3.8-5.5); Red Cell Distribution Width 17.6 % (9.3-17.3); White Blood Count 3.7 T/CUMM (4-12)
[2022-03-20 07:38] LABS: Sedimentation Rate-Westergren 115 MM/HR (0-15)
[2022-03-20] MEDS: INSULIN LISPRO 100 UNIT/ML SUBCUT SCH ×2 (08:10→13:21)
[2022-03-20] MEDS ORDERED: ASPIRIN CHEW 81 MG TABLET PO SCH (09:00)
[2022-03-20] MEDS ORDERED: carvediloL 3.125 MG TABLET PO SCH (09:00)
[2022-03-20] MEDS ORDERED: CLOPIDOGREL 75 MG TABLET PO SCH (09:00)
[2022-03-20] MEDS ORDERED: SACUBITRIL/VALSARTAN 49-51 MG TABLET PO SCH (09:00)
[2022-03-20] MEDS ORDERED: PANTOPRAZOLE 40 MG TABLET PO SCH (09:00)
[2022-03-20] MEDS ORDERED: FLUoxetine 20 MG CAPSULE PO SCH (09:00)
[2022-03-20] MEDS: SEVELAMER CARBONATE 800 MG TABLET PO SCH ×2 (09:11→13:21)
[2022-03-20 09:28] LABS: Hemoglobin A1 (Alkaline) 98.1 % (96.5-98.5); Hemoglobin A2 (Alkaline) 1.9 % (1.5-3.5)
[2022-03-20] MEDS ORDERED: HEPARIN 10,000 UNIT/10 ML VIAL IV PRN (12:57)
[2022-03-20 13:29] VITALS: BP 131/83
[2022-03-20] MEDS ORDERED: RANOLAZINE 500 MG TABLET PO SCH (21:00)
[2022-03-20] MEDS ORDERED: APIXABAN 5 MG TABLET PO SCH (21:00)
[2022-03-20] MEDS ORDERED: ATORVASTATIN 40 MG TABLET PO SCH (21:00)
== END 2022-03-20 14:37 | disposition home or self-care (01) ==
LOC: N.EDINP 21:41 → N.ED 21:41 → N.3E 03-20 02:37
PROVIDERS: ADMIT Internal Medicine; ATTEND Internal Medicine

== ENCOUNTER 2022-04-01 14:04 | Observation (INO) ==
[2022-04-01 15:40] LABS: Basophils % 0.8 % (0.0-0.8); Eosinophils # 0.1 10*3/uL (0.0-0.87); Eosinophils % 1.6 % (0.00-10.9); Hematocrit 31.5 VOL% (42.0-52.0); Hemoglobin 9.7 GM/DL (14.0-18.0); Immature Granulocytes % 0.6 %; Immature Granulocytes Absolute 0.03 #; Lymphocytes # 1.1 10*3/uL (1.4-4.0); Lymphocytes % 22.5 % (21.2-54.2); Mean Corpuscular HGB Conc 30.8 GM/DL (32-36); Mean Corpuscular Volume 98.1 FL (87-102); Monocytes # 0.5 10*3/uL (0.11-0.8); Monocytes % 9.2 % (1.7-12.7); Neutrophils % 65.3 % (38.7-73.9); Platelet Count 165 T/CUMM (130-400); Red Blood Count 3.21 MC/CUMM (3.8-5.5); Red Cell Distribution Width 19.1 % (9.3-17.3)
[2022-04-01 16:06] LABS: Albumin 3.1 G/DL (3.4-5.0); Bilirubin,Total 1.2 MG/DL (0.20-1.00); Calcium 9.8 MG/DL (8.5-10.1); Osmolality,Calculated 278.1 MOS/KG (273-304); Potassium 3.7 MMOL/L (3.5-5.1); Total Protein 8.1 G/DL (6.4-8.2)
[2022-04-01] MEDS ORDERED: MORPHINE 2 MG/1 ML SYRINGE IV STA (17:37)
[2022-04-01] MEDS ORDERED: ONDANSETRON 4 MG/2 ML VIAL IV STA (17:37)
[2022-04-01] MEDS ORDERED: ALUM/MAG/SIMETH/LIDO VISC 1:1 30 ML BOTTLE PO STA (17:50)
[2022-04-01] MEDS ORDERED: HYDROmorphone 1 MG/1 ML SYRINGE IV PRN (17:50)
[2022-04-01] MEDS ORDERED: ONDANSETRON 4 MG/2 ML VIAL IV PRN (17:50)
[2022-04-01 18:21] LABS: INR 1.3; PT Patient Result 14.2 SECS (10.5-12.0); Partial Thromboplastin Time 39.7 SECS (23.8-32.1)
[2022-04-01 19:34] LABS: Hematocrit 31.5 VOL% (42.0-52.0); Hemoglobin 9.8 GM/DL (14.0-18.0)
[2022-04-01] MEDS ORDERED: ATORVASTATIN 40 MG TABLET PO SCH (21:00)
[2022-04-01] MEDS: ALUM/MAG/SIMETH/LIDO VISC 1:1 30 ML BOTTLE PO SCH (21:01)
[2022-04-01] MEDS: PANTOPRAZOLE 40 MG VIAL IV SCH (21:01)
[2022-04-01] MEDS: RANOLAZINE 500 MG TABLET PO SCH (21:02)
[2022-04-01] MEDS: SACUBITRIL/VALSARTAN 49-51 MG TABLET PO SCH (21:02)
[2022-04-01] MEDS: carvediloL 3.125 MG TABLET PO SCH (21:02)
[2022-04-01] MEDS: DOCUSATE SODIUM 100 MG CAPSULE PO SCH (21:03)
[2022-04-02 00:32] LABS: Hematocrit 36.4 VOL% (42.0-52.0)
[2022-04-02 04:51] LABS: Basophils % 0.5 % (0.0-0.8); Eosinophils # 0.1 10*3/uL (0.0-0.87); Eosinophils % 0.8 % (0.00-10.9); Hematocrit 31.8 VOL% (42.0-52.0); Hemoglobin 9.7 GM/DL (14.0-18.0); Immature Granulocytes % 0.3 %; Immature Granulocytes Absolute 0.02 #; Lymphocytes # 1.3 10*3/uL (1.4-4.0); Lymphocytes % 18.9 % (21.2-54.2); Mean Corpuscular HGB Conc 30.5 GM/DL (32-36); Mean Corpuscular Volume 98.8 FL (87-102); Mean Platelet Volume 10.2 FL (9.6-12.0); Monocytes # 0.9 10*3/uL (0.11-0.8); Neutrophils % 66.5 % (38.7-73.9); Platelet Count 140 T/CUMM (130-400); Red Blood Count 3.22 MC/CUMM (3.8-5.5); Red Cell Distribution Width 18.6 % (9.3-17.3); White Blood Count 6.6 T/CUMM (4-12)
[2022-04-02 05:18] LABS: Albumin 2.9 G/DL (3.4-5.0); Bilirubin,Total 1.5 MG/DL (0.20-1.00); Calcium 9.6 MG/DL (8.5-10.1); Osmolality,Calculated 274.4 MOS/KG (273-304); Potassium 4.1 MMOL/L (3.5-5.1); Total Protein 8.1 G/DL (6.4-8.2)
[2022-04-02 06:27] LABS: Hematocrit 32.9 VOL% (42.0-52.0); Hemoglobin 10.2 GM/DL (14.0-18.0)
[2022-04-02] MEDS: PANTOPRAZOLE 40 MG VIAL IV SCH (08:23)
[2022-04-02] MEDS: ALUM/MAG/SIMETH/LIDO VISC 1:1 30 ML BOTTLE PO SCH (08:26)
[2022-04-02] MEDS: RANOLAZINE 500 MG TABLET PO SCH (08:26)
[2022-04-02] MEDS: SEVELAMER CARBONATE 800 MG TABLET PO SCH ×2 (08:26→11:19)
[2022-04-02] MEDS: SACUBITRIL/VALSARTAN 49-51 MG TABLET PO SCH (08:27)
[2022-04-02] MEDS: DOCUSATE SODIUM 100 MG CAPSULE PO SCH (08:27)
[2022-04-02] MEDS: carvediloL 3.125 MG TABLET PO SCH (08:27)
[2022-04-02] MEDS ORDERED: CINACALCET 30 MG TABLET PO SCH (09:00)
[2022-04-02] MEDS ORDERED: FLUoxetine 20 MG CAPSULE PO SCH (09:00)
[2022-04-02 11:41] VITALS: BP 119/58
[2022-04-02 12:15] LABS: Hepatitis B Core IgM Quant < 0.05 Index; Hepatitis B Surface Ag Quant < 0.10 Index; Hepatitis B Surface Ag Result Non-Reactive (NonReactive); Hepatitis C Virus Ab Quant 0.07 Index; Hepatitis C Virus Ab Result Non-Reactive (NonReactive)
[2022-04-02] MEDS ORDERED: ONDANSETRON ODT 4 MG TABLET PO ONE (13:00)
== END 2022-04-02 13:26 | disposition home or self-care (01) ==
LOC: N.EDINP 14:04 → N.ED 14:04 → SUATTDRO 17:37 → N.EDINP 18:31 → N.3E 18:41
PROVIDERS: ADMIT Internal Medicine; ATTEND Internal Medicine

== ENCOUNTER 2022-05-14 09:39 | Inpatient (IN) ==
[2022-05-14] MEDS ORDERED: DEXTROSE 50% 25 GM/50 ML SYRINGE IV ONE ×2 (10:12→15:30)
[2022-05-14] MEDS ORDERED: DEXTROSE 50% 25 GM/50 ML VIAL IV STA (10:24)
[2022-05-14] MEDS ORDERED: DEXTROSE 50% 25 GM/50 ML SYRINGE IV STA (10:30)
[2022-05-14 10:49] LABS: Basophils % 0.1 % (0.0-0.8); Eosinophils % 0.1 % (0.00-10.9); Hematocrit 38.1 VOL% (42.0-52.0); Hemoglobin 11.2 GM/DL (14.0-18.0); Immature Granulocytes % 1.4 %; Immature Granulocytes Absolute 0.21 #; Lymphocytes # 0.8 10*3/uL (1.4-4.0); Lymphocytes % 5.6 % (21.2-54.2); Mean Corpuscular HGB Conc 29.4 GM/DL (32-36); Mean Corpuscular Volume 111.7 FL (87-102); Monocytes # 2.3 10*3/uL (0.11-0.8); Monocytes % 15.5 % (1.7-12.7); NRBC # 0.05 10*3/uL; Neutrophils % 77.3 % (38.7-73.9); Platelet Count 173 T/CUMM (130-400); Red Blood Count 3.41 MC/CUMM (3.8-5.5); White Blood Count 14.5 T/CUMM (4-12)
[2022-05-14] MEDS ORDERED: SODIUM CHLORIDE 0.9% 1,000 ML IV STA (11:13)
[2022-05-14 11:14] LABS: Alanine Aminotransferase 717 U/L (16-61); Albumin 3.5 G/DL (3.4-5.0); Alkaline Phosphatase 192 U/L (45-117); Amylase 118 U/L (25-115); Blood Urea Nitrogen 25 MG/DL (7-18); Calcium 8.5 MG/DL (8.5-10.1); Carbon Dioxide 16 MMOL/L (21-32); Chloride 97 MMOL/L (98-107); Glucose 56 MG/DL (74-106); Osmolality,Calculated 269.2 MOS/KG (273-304); Potassium 4.6 MMOL/L (3.5-5.1); Sodium 134 MMOL/L (136-145); Total Protein 8.1 G/DL (6.4-8.2)
[2022-05-14] MEDS ORDERED: PIPERACILLIN/TAZOBACTAM 3,375 MG in SODIUM CHLORIDE 0.9% 100 ML IV STA (11:14)
[2022-05-14 11:15] LABS: Aspartate Amino Transferase 1331 U/L (0-37)
[2022-05-14 11:49] LABS: Arterial Base Excess iSTAT -8 MMOL/L (-2.5-2.5); Arterial Bicarbonate iSTAT 20.4 MMOL/L (20-26); Arterial O2 Saturation iSTAT 32 % (95-100); Arterial PCO2 iSTAT 53 MM HG (35-48); Arterial PO2 iSTAT 25 MM HG (80-95); Arterial Total CO2 iSTAT 22 MMO/L (23-27); Arterial pH iSTAT 7.197 (7.35-7.45)
[2022-05-14 11:49] LABS: Arterial Base Excess iSTAT -9 MMOL/L (-2.5-2.5); Arterial Bicarbonate iSTAT 13.3 MMOL/L (20-26); Arterial O2 Saturation iSTAT 99 % (95-100); Arterial PCO2 iSTAT 20 MM HG (35-48); Arterial PO2 iSTAT 128 MM HG (80-95); Arterial Total CO2 iSTAT 14 MMO/L (23-27); Arterial pH iSTAT 7.421 (7.35-7.45)
[2022-05-14 12:20] LABS: INR 2.7; PT Patient Result 27.5 SECS (10.5-12.0); Partial Thromboplastin Time 48.5 SECS (23.7-32.9)
[2022-05-14] MEDS ORDERED: MORPHINE 2 MG/1 ML SYRINGE IV PRN (13:02)
[2022-05-14] MEDS ORDERED: ONDANSETRON 4 MG/2 ML VIAL IV PRN (13:02)
[2022-05-14] MEDS ORDERED: LACTATED RINGERS 1,000 ML IV SCH (13:30)
[2022-05-14] MEDS ORDERED: HEPARIN 5,000 UNIT/1 ML VIAL SUBCUT SCH (13:30)
[2022-05-14] MEDS ORDERED: HYDROCORTISONE 100 MG VIAL IV STA (13:57)
[2022-05-14] MEDS ORDERED: DEXTROSE 50% 25 GM/50 ML VIAL IV ONE (14:14)
[2022-05-14] MEDS: DEXTROSE 5% NACL 0.45% 1,000 ML IV SCH (14:15)
[2022-05-14] MEDS ORDERED: VANCOMYCIN INJ 750 MG in SODIUM CHLORIDE 0.9% 250 ML IV PRN (14:18)
[2022-05-14] MEDS ORDERED: SODIUM BICARBONATE 50 MEQ/50 ML VIAL IV ONE (14:39)
[2022-05-14 15:24] LABS: Arterial Base Excess iSTAT 2 MMOL/L (-2.5-2.5); Arterial Bicarbonate iSTAT 25.6 MMOL/L (20-26); Arterial O2 Saturation iSTAT 100 % (95-100); Arterial PCO2 iSTAT 36 MM HG (35-48); Arterial PO2 iSTAT 487 MM HG (80-95); Arterial Total CO2 iSTAT 27 MMO/L (23-27); Arterial pH iSTAT 7.463 (7.35-7.45)
[2022-05-14] MEDS: CEFEPIME 1,000 MG in SODIUM CHLORIDE 0.9% 100 ML IV SCH (15:32)
[2022-05-14] MEDS ORDERED: VANCOMYCIN INJ 2,000 MG in SODIUM CHLORIDE 0.9% 500 ML IV ONE (16:00)
[2022-05-14] MEDS: DEXTROSE 10% 1,000 ML IV SCH (18:44)
[2022-05-14 18:52] LABS: Calcium 8.2 MG/DL (8.5-10.1); Potassium 4.3 MMOL/L (3.5-5.1)
[2022-05-14 19:21] LABS: Free T4 (Free Thyroxine) 0.76 NG/DL (0.76-1.46); Thyroid Stimulating Hormone 7.43 uIU/ml (0.358-3.74)
[2022-05-14 19:39] LABS: Hepatitis B Core IgM Quant < 0.05 Index; Hepatitis B Surface Ag Quant < 0.10 Index; Hepatitis B Surface Ag Result Non-Reactive (NonReactive); Hepatitis C Virus Ab Quant 0.09 Index; Hepatitis C Virus Ab Result Non-Reactive (NonReactive)
[2022-05-14] MEDS: HYDROCORTISONE 100 MG VIAL IV SCH (21:10)
[2022-05-14] MEDS: APIXABAN 2.5 MG TABLET PO SCH (21:11)
[2022-05-15] MEDS: DEXTROSE 5% NACL 0.45% 1,000 ML IV SCH ×2 (00:33→11:25)
[2022-05-15] MEDS: MORPHINE 2 MG/1 ML SYRINGE IV PRN (03:59)
[2022-05-15 04:02] LABS: Arterial Base Excess iSTAT -4 MMOL/L (-2.5-2.5); Arterial Bicarbonate iSTAT 20.7 MMOL/L (20-26); Arterial O2 Saturation iSTAT 100 % (95-100); Arterial PCO2 iSTAT 35 MM HG (35-48); Arterial PO2 iSTAT 416 MM HG (80-95); Arterial Total CO2 iSTAT 22 MMO/L (23-27)
[2022-05-15 04:12] LABS: Basophils % 0.1 % (0.0-0.8); Hematocrit 34.3 VOL% (42.0-52.0); Hemoglobin 10.2 GM/DL (14.0-18.0); Immature Granulocytes % 0.8 %; Lymphocytes # 1.7 10*3/uL (1.4-4.0); Lymphocytes % 13.2 % (21.2-54.2); Mean Corpuscular HGB Conc 29.7 GM/DL (32-36); Mean Corpuscular Volume 109.6 FL (87-102); Mean Platelet Volume 11.6 FL (9.6-12.0); Monocytes # 2.2 10*3/uL (0.11-0.8); Monocytes % 17.6 % (1.7-12.7); NRBC # 0.11 10*3/uL; Neutrophils % 68.3 % (38.7-73.9); Platelet Count 108 T/CUMM (130-400); Red Blood Count 3.13 MC/CUMM (3.8-5.5); Red Cell Distribution Width 19.9 % (9.3-17.3); White Blood Count 12.5 T/CUMM (4-12)
[2022-05-15 04:23] LABS: INR 3.6; PT Patient Result 36.1 SECS (10.5-12.0)
[2022-05-15 04:36] LABS: Lymphocytes 12 % (20-55); Total Cells Counted 100
[2022-05-15 05:15] LABS: Folate 17.11 NG/ML (5.38-24.0); Vitamin B12 > 2000 PG/ML (211-911)
[2022-05-15 05:45] VITALS: BP 120/82
[2022-05-15 05:53] LABS: Albumin 3.5 G/DL (3.4-5.0); Bilirubin,Total 3.3 MG/DL (0.20-1.00); Calcium 8.9 MG/DL (8.5-10.1); Osmolality,Calculated 274.2 MOS/KG (273-304); Potassium 4.9 MMOL/L (3.5-5.1); Total Protein 8.9 G/DL (6.4-8.2)
[2022-05-15] MEDS: HYDROCORTISONE 100 MG VIAL IV SCH ×3 (06:41→22:14)
[2022-05-15] MEDS: APIXABAN 2.5 MG TABLET PO SCH ×2 (08:32→20:28)
[2022-05-15] MEDS: PANTOPRAZOLE 40 MG TABLET PO SCH (08:32)
[2022-05-15] MEDS ORDERED: ALBUMIN 25% 25 GM/100 ML VIAL IV ONE (10:23)
[2022-05-15] MEDS ORDERED: DEXTROSE 50% 25 GM/50 ML SYRINGE IV STA (10:26)
[2022-05-15] MEDS: CEFEPIME 1,000 MG in SODIUM CHLORIDE 0.9% 100 ML IV SCH (14:43)
[2022-05-15] MEDS: DEXTROSE 10% 1,000 ML IV SCH (16:01)
[2022-05-15] MEDS ORDERED: VANCOMYCIN INJ 750 MG in SODIUM CHLORIDE 0.9% 250 ML IV ONE (17:00)
[2022-05-15] MEDS ORDERED: LEVOTHYROXINE 100 MCG VIAL IV ONE (20:00)
[2022-05-15] MEDS ORDERED: DEXTROSE 10% 500 ML IV SCH (23:32)
[2022-05-16] MEDS: MORPHINE 2 MG/1 ML SYRINGE IV PRN ×2 (00:15→08:38)
[2022-05-16] MEDS ORDERED: ROCURONIUM 100 MG/10 ML VIAL IV ONE ×2 (01:30→02:28)
[2022-05-16] MEDS ORDERED: ETOMIDATE 20 MG/10 ML VIAL IV ONE ×2 (01:30→02:28)
[2022-05-16] MEDS ORDERED: NOREPINEPHRINE 4 MG/4 ML VIAL IV ONE (01:36)
[2022-05-16] MEDS ORDERED: EPINEPHrine 1 MG/10 ML SYRINGE ONE ×2 (01:36→02:05)
[2022-05-16] MEDS ORDERED: MIDAZOLAM 2 MG/2 ML VIAL ONE (01:41)
[2022-05-16] MEDS ORDERED: CALCIUM CHLORIDE 1,000 MG/10 ML SYRINGE IV ONE (01:48)
[2022-05-16] MEDS ORDERED: SODIUM BICARBONATE 50 MEQ/50 ML SYRINGE IV ONE ×2 (01:50→05:20)
[2022-05-16] MEDS ORDERED: MAGNESIUM SULFATE 1 GM/2 ML VIAL IV ONE (02:00)
[2022-05-16] MEDS ORDERED: EPINEPHrine 1 MG/10 ML SYRINGE IV ONE ×3 (02:01→05:18)
[2022-05-16] MEDS ORDERED: VASOPRESSIN 100 UNITS in SODIUM CHLORIDE 0.9% 95 ML IV PRN (02:07)
[2022-05-16] MEDS ORDERED: MIDAZOLAM 2 MG/2 ML VIAL IV ONE (02:26)
[2022-05-16 02:27] LABS: Basophils % 0.1 % (0.0-0.8); Immature Granulocytes % 2.8 %; Immature Granulocytes Absolute 0.33 #; Lymphocytes # 1.2 10*3/uL (1.4-4.0); Lymphocytes % 10.4 % (21.2-54.2); Mean Corpuscular HGB Conc 28.7 GM/DL (32-36); Mean Corpuscular Volume 116.3 FL (87-102); Mean Platelet Volume 11.3 FL (9.6-12.0); Monocytes # 1.5 10*3/uL (0.11-0.8); Monocytes % 12.4 % (1.7-12.7); NRBC # 0.38 10*3/uL; Neutrophils % 74.3 % (38.7-73.9); Platelet Count 96 T/CUMM (130-400); Red Cell Distribution Width 20.5 % (9.3-17.3); White Blood Count 11.8 T/CUMM (4-12)
[2022-05-16] MEDS ORDERED: MIDAZOLAM 100 MG in SODIUM CHLORIDE 0.9% 80 ML IV PRN (02:27)
[2022-05-16 02:29] LABS: Hematocrit 31.4 VOL% (42.0-52.0)
[2022-05-16] MEDS ORDERED: NOREPINEPHRINE 8 MG in SODIUM CHLORIDE 0.9% 242 ML IV PRN (02:29)
[2022-05-16 02:31] LABS: Arterial Base Excess iSTAT -15 MMOL/L (-2.5-2.5); Arterial Bicarbonate iSTAT 15.6 MMOL/L (20-26); Arterial O2 Saturation iSTAT 19 % (95-100); Arterial PCO2 iSTAT 60 MM HG (35-48); Arterial PO2 iSTAT 22 MM HG (80-95); Arterial Total CO2 iSTAT 17 MMO/L (23-27); Arterial pH iSTAT 7.021 (7.35-7.45)
[2022-05-16 02:39] LABS: Arterial Base Excess iSTAT -19 MMOL/L (-2.5-2.5); Arterial Bicarbonate iSTAT 10.9 MMOL/L (20-26); Arterial O2 Saturation iSTAT 98 % (95-100); Arterial PCO2 iSTAT 40 MM HG (35-48); Arterial PO2 iSTAT 142 MM HG (80-95); Arterial Total CO2 iSTAT 12 MMO/L (23-27); Arterial pH iSTAT 7.049 (7.35-7.45)
[2022-05-16 02:54] LABS: Alanine Aminotransferase 1823 U/L (16-61); Albumin 2.6 G/DL (3.4-5.0); Alkaline Phosphatase 173 U/L (45-117); Aspartate Amino Transferase 2730 U/L (0-37); Blood Urea Nitrogen 27 MG/DL (7-18); Calcium 9.6 MG/DL (8.5-10.1); Carbon Dioxide 19 MMOL/L (21-32); Chloride 94 MMOL/L (98-107); Glucose 140 MG/DL (74-106); Osmolality,Calculated 279.8 MOS/KG (273-304); Potassium 5.1 MMOL/L (3.5-5.1); Sodium 137 MMOL/L (136-145); Total Protein 6.4 G/DL (6.4-8.2)
[2022-05-16 02:56] LABS: Eosinophils 1 % (0-10); Lymphocytes 26 % (20-55); Nucleated Red Blood Cells 4 (0-5); Total Cells Counted 100
[2022-05-16 02:57] LABS: Platelet Estimate Decreased
[2022-05-16 04:17] LABS: Phosphorous 7.9 MG/DL (2.5-4.9)
[2022-05-16 04:18] LABS: PT Patient Result 80.6 SECS (10.5-12.0)
[2022-05-16 04:22] LABS: INR 8.5
[2022-05-16 04:27] LABS: Albumin 2.8 G/DL (3.4-5.0); Bilirubin,Total 4.3 MG/DL (0.20-1.00); Calcium 9.2 MG/DL (8.5-10.1); Osmolality,Calculated 282.4 MOS/KG (273-304); Potassium 4.4 MMOL/L (3.5-5.1); Total Protein 7.4 G/DL (6.4-8.2)
[2022-05-16] MEDS ORDERED: SODIUM CHLORIDE 0.9% 1,000 ML IV PRN (04:42)
[2022-05-16] MEDS ORDERED: SODIUM BICARBONATE 50 MEQ/50 ML VIAL IV ONE ×2 (05:17→05:21)
[2022-05-16 05:18] LABS: Basophils % 0.1 % (0.0-0.8); Eosinophils % 0.1 % (0.00-10.9); Hematocrit 34.8 VOL% (42.0-52.0); Hemoglobin 9.7 GM/DL (14.0-18.0); Immature Granulocytes % 0.8 %; Immature Granulocytes Absolute 0.09 #; Lymphocytes # 0.8 10*3/uL (1.4-4.0); Lymphocytes % 6.8 % (21.2-54.2); Mean Corpuscular HGB Conc 27.9 GM/DL (32-36); Mean Platelet Volume 10.7 FL (9.6-12.0); Monocytes # 0.8 10*3/uL (0.11-0.8); Monocytes % 6.7 % (1.7-12.7); NRBC # 0.68 10*3/uL; Neutrophils % 85.5 % (38.7-73.9); Platelet Count 112 T/CUMM (130-400); Red Blood Count 2.95 MC/CUMM (3.8-5.5); Red Cell Distribution Width 20.7 % (9.3-17.3); White Blood Count 11.5 T/CUMM (4-12)
[2022-05-16] MEDS ORDERED: PHENYLEPHRINE DRIP 40 MG/250 ML PREMIX IV ONE (05:19)
[2022-05-16 05:23] LABS: Band Neutrophils 8 % (0-10); Lymphocytes 6 % (20-55); Nucleated Red Blood Cells 6 (0-5); Platelet Estimate Decreased; Total Cells Counted 100
[2022-05-16] MEDS ORDERED: SODIUM BICARB INJ 150 MEQ in DEXTROSE 5% 850 ML IV SCH (05:30)
[2022-05-16] MEDS ORDERED: DEXTROSE 50% 25 GM/50 ML SYRINGE IV ONE (05:50)
[2022-05-16 05:54] LABS: Arterial Bicarbonate iSTAT 12.9 MMOL/L (20-26); Arterial pH iSTAT 7.142 (7.35-7.45)
[2022-05-16] MEDS: HYDROCORTISONE 100 MG VIAL IV SCH (06:24)
[2022-05-16] MEDS ORDERED: LEVOTHYROXINE 100 MCG VIAL IV SCH (07:00)
[2022-05-16] MEDS ORDERED: MORPHINE 2 MG/1 ML SYRINGE IV PRN (08:30)
[2022-05-16] MEDS: APIXABAN 2.5 MG TABLET PO SCH (09:04)
[2022-05-16] MEDS: PANTOPRAZOLE 40 MG TABLET PO SCH (10:36)
== END 2022-05-16 09:07 | disposition expired | DRG 871 ==
LOC: EDBD → EDUNIT# → N.ED 09:39 → N.EDINP 13:02 → SUATTDRO 13:02 → N.CC 14:00
PROVIDERS: ADMIT Family Medicine; ATTEND Internal Medicine